=== PATIENT | female | born 1980 | race Two or more races ===

== ENCOUNTER 2024-10-14 08:52 | Emergency (ER) | payer MEDICAID, SELFPAY ==
[2024-10-14 08:54] VITALS: BP 102/84; PULSE 92; RESP 19; TEMP 36.9; O2SAT 98; BMI 32.9
--- NOTE | 2024-10-14 09:05 | XR_ITS ---
Examination: PA lateral chest 2 views TECHNIQUE: Upright PA lateral chest 2 views Exam date and time: October 14, 2024 0912 hours INDICATIONS: Coughing flulike symptoms today FINDINGS: Normal heart size Lungs are clear. The osseous structures are intact IMPRESSION: No active disease
--- NOTE | 2024-10-14 09:49 | PC.NURSE ---
COVID/FLU NEG
--- NOTE | 2024-10-14 11:17 | PD.EDURI ---
Upper Respiratory Inf. RME/HPI General Chief Complaint: Flu Like Symptoms Stated Complaint: COUGH Time Seen by Provider: 10/14/24 08:54 Arrival date/time: 10/14/24 08:52 44-year-old female presents emergency department complaints of cough, congestion, runny nose ongoing for the last couple of days patient reports no chest pain shortness breath headache dizziness weakness Limitations: no limitations Related Data Previous Rx's ?Medication ?Instructions ?Recorded omeprazole 20 mg capsule,delayed 20 mg PO QDAY #14 caps 02/21/23 release albuterol sulfate 90 mcg/actuation 2 puff inhalation Q6H PRN 10/14/24 aerosol inhaler (Ventolin HFA) shortness of breath or wheezing #8.5 grams benzonatate 100 mg capsule 100 mg PO TID #14 caps 10/14/24 ibuprofen 600 mg tablet 600 mg PO Q6H #30 tabs 10/14/24 prednisone 10 mg tablet 30 mg (3 x 10 mg) PO BID 3 days 10/14/24 #18 tabs Allergies Allergy/AdvReac Type Severity Reaction Status Date / Time No Known Allergies Allergy Verified 10/14/24 08:55 Review of Systems Review of Systems Systems Reviewed: All systems reviewed, normal except as documented Constitutional Constitutional: Reports system reviewed and no additional complaints, except as documented, Denies fever(s) and Denies headache(s) Eyes Eyes: Reports system reviewed and no additional complaints, except as documented and Denies blurry vision ENT Ears, Nose, Mouth, and Throat: Reports system reviewed and no additional complaints, except as documented, Denies headache(s), Reports nasal congestion and Reports nasal discharge Cardiovascular Cardiovascular: Reports system reviewed and no additional complaints, except as documented, Denies chest pain and Denies dyspnea Respiratory Respiratory: Reports system reviewed and no additional complaints, except as documented, Reports chest congestion, Reports cough and Denies dyspnea Gastrointestinal Gastrointestinal: Reports system reviewed and no additional complaints, except as documented and Denies abdominal pain Integumentary/Breasts Skin/Breast: Reports system reviewed and no additional complaints, except as documented and Denies rash Neurologic Neurologic: Reports system reviewed and no additional complaints, except as documented, Reports as per HPI and Denies headache(s) Past Medical History Past Medical History NEUROLOGIC: Negative Neurological Disorders CARDIAC: Negative Cardiac Disorders ED Exam General Limitations: Present no limitations General appearance: Present alert and in no apparent distress Head Head exam: Present atraumatic Eye Eye exam: Present normal appearance, PERRL and EOMI ENT ENT exam: Present normal exam, normal oropharynx and mucous membranes moist Neck Neck exam: Present normal inspection, full ROM and trachea midline Chest Chest inspection: Present normal inspection and symmetric chest wall rise Respiratory Respiratory exam: Present normal lung sounds bilaterally Cardiovascular Cardiovascular exam: Present regular rate, normal rhythm and normal heart sounds Abdominal Exam Abdominal exam: Present soft and normal bowel sounds Extremities Exam Extremities exam: Present normal inspection and full ROM Back Exam Back exam: Present normal inspection and full ROM Neurological Exam Neurological exam: Present alert, oriented X3 and CN II-XII intact Psychiatric Psychiatric exam: Present normal affect and normal mood Skin Skin exam: Present warm, dry, intact and normal color Course Quality Measures none Orders Category Date Time Status Bedside COVID-19 Antigen Test NOW Care 10/14/24 09:05 Completed Bedside Influenza A&B Antigen Test NOW Care 10/14/24 09:05 Completed XR chest 2V Stat Exams 10/14/24 09:05 Completed Vital Signs Vital signs: Vital Signs Temperature 98.5 F 10/14/24 08:54 Pulse Rate 92 10/14/24 08:54 Respiratory Rate 19 10/14/24 08:54 Blood Pressure 102/84 10/14/24 08:54 Pulse Oximetry (%) 98 10/14/24 08:54 Oxygen Delivery Method Room Air 10/14/24 08:54 O2 saturation 98% room air within normal limits Upper Respiratory Infection MDM Narrative MDM Narrative:: 44-year-old female presents emergency department complaints of cough, congestion, runny nose ongoing for the last couple of days patient reports no chest pain shortness breath headache dizziness weakness On exam patient does not appear ill or toxic in no acute distress Flu and COVID obtained chest x-ray obtained Chest x-ray no acute pneumonic able traits flu and COVID are both negative Symptoms consistent with URI Patient discharged home in no distress to follow-up with primary care doctor in the next 24 to 48 hours and for any worsening symptoms to return to the ER immediately Patient data External records reviewed:: [facility] previous records Clinical information provided by:: patient Social determinants that could affect healthcare access:: none Patient has the following chronic illnesses:: None How is presenting disease/condition affected by chronic disease/condition?: no chronic disease Evaluation data The following diagnostics were reviewed and interpreted by me:: lab results and radiology exam(s) Lab and/or radiology exams considered but not ordered:: Labs radiology obtained Interpretation Summary: Reviewed by me Medications / Prescriptions Medications or Prescriptions considered but not ordered:: Given Medication administrations:: Given Consultations Consultation(s) initiated? (list below): No Diagnosis Upper Respiratory Differential Diagnosis: upper respiratory infection, otitis media, sinusitis, viral infection and bronchitis Most likely diagnosis given after review of the tests above:: URI Admission Indicated Admission indicated?: not indicated Admission Request Was there a request for admission?: No Disposition Plan Disposition Plan: Discharge Discharge Attestation Discharge Attestation: The patient and all family members were given an opportunity to ask questions and understood the discharge instructions. Discharge instructions specifically effects, indications for sooner follow up or return to the emergency department, and the expected course of current diagnosis. Patient condition: Stable Discharge Plan Plan Patient Disposition: HOME (Self Care) Disposition Comment: Stable Prescriptions/Referrals Prescriptions/Med Rec: New prednisone 10 mg tablet 30 mg PO BID 3 Days Qty: 18 0RF benzonatate 100 mg capsule 100 mg PO TID Qty: 14 0RF ibuprofen 600 mg tablet 600 mg PO Q6H Qty: 30 0RF albuterol sulfate [Ventolin HFA] 90 mcg/actuation HFA aerosol inhaler 2 puff inhalation Q6H PRN (Reason: shortness of breath or wheezing) Qty: 8.5 0RF No Action omeprazole 20 mg capsule,delayed release(DR/EC) 20 mg PO QDAY Qty: 14 0RF Referrals: Kan Jean-Baptiste MD [Primary Care Provider] - 10/15/24 Problem List Clinical Impression: Upper respiratory infection Patient/Caregiver Discharge Instructions Education Materials: ED URI, Viral, No Abx (Adult) Additional Instructions: Please follow up with your primary care doctor in the next 24-48hrs for any worsening symptoms return here immediately Print Language: [place] Stand Alone Forms: Amparo Award Info., Work/School Release, Patient Portal Info Letter Attestation Attestation The patient was seen by the midlevel practitioner. I, the co-signing physician, was present during the entire ER visit. While I did not physically examine the patient, I was available for consultation as needed.
== END 2024-10-14 12:28 | disposition home or self-care (01) ==
PROVIDERS: Emergency Provider Emergency Medicine; PCP Family Medicine
DX: J06.9 Acute upper respiratory infection, unspecified (principal)
CPT/HCPCS: 71046; 99283

== ENCOUNTER 2024-12-16 20:09 | Emergency (ER) | payer MEDICAID, SELFPAY ==
[2024-12-16 20:10] VITALS: BMI 30.5
--- NOTE | 2024-12-16 20:13 | EKG_ITS ---
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
[2024-12-16 20:59] VITALS: BP 108/68; PULSE 84; RESP 18; TEMP 37; O2SAT 100
--- NOTE | 2024-12-16 21:09 | XR_ITS ---
Examination: PA lateral chest 2 views FINDINGS: Upright PA and lateral chest 2 views Exam date and time: December 16, 20242120 hours Comparison October 14, 2024 INDICATIONS: Chest pain beginning one hour ago. FINDINGS: Normal heart size. Lungs are clear. The osseous structures are intact IMPRESSION: No active disease
--- NOTE | 2024-12-16 21:09 | PD.EDRME ---
Rapid Medical Screening Exam RME Arrival date/time: 12/16/24 20:09 44-year-old female no significant past medical history but reports maternal and paternal CAD presents emergency department complaining of left-sided chest pain that radiates towards her left arm she rates it 7 out of 10 and describes it as pressure that is accompanied with shortness of breath. Chief Complaint: Chest Pain Time Seen by Provider: 12/16/24 20:28 Vital signs: Vital Signs Temperature 98.6 F 12/16/24 20:59 Pulse Rate 84 12/16/24 20:59 Respiratory Rate 18 12/16/24 20:59 Blood Pressure 108/68 12/16/24 20:59 Pulse Oximetry (%) 100 12/16/24 20:59 Oxygen Delivery Method Room Air 12/16/24 20:59 Vital signs reviewed by provider: Yes
[2024-12-16 21:56] LABS: Basophils % (Auto) 0 % (0-2.5); Eosinophils # (Auto) 0.1 Thou/mm3 (0.0-0.5); Eosinophils % (Auto) 1 % (0-10); Hematocrit 22.2 % (36.0-46.0); Immature Granulocytes % (Auto) 0 % (0-0); Immature Granulocytes Auto 0.03 Thou/mm3 (0.00-0.00); Lymphocytes # (Auto) 2.7 Thou/mm3 (1.0-4.8); Lymphocytes % (Auto) 34 % (10-50); Mean Corpuscular Hemoglobin 16.4 pg (25.0-35.0); Mean Corpuscular Volume 61 fL (80-100); Monocytes # (Auto) 0.8 Thou/mm3 (0.0-0.8); Monocytes % (Auto) 10 % (0-12); Neutrophils # (Auto) 4.5 Thou/mm3 (1.8-7.7); Neutrophils % (Auto) 55 % (37-80); Nucleated Red Blood Cell % 0 /100 WBC (0); Platelet Count 369 Thou/mm3 (140-440); RDW Standard Deviation 44.3 fL (36.4-46.3); Red Blood Count 3.66 Miln/mm3 (4.00-5.20); White Blood Count 8.1 Thou/mm3 (3.6-11.0)
[2024-12-16 22:03] LABS: Collection Type, Urine Clean Catch
[2024-12-16 22:05] LABS: INR 0.9 (0.9-1.3); Partial Thromboplastin Time 22.3 Seconds (22.0-36.0); Prothrombin Time 10.3 Seconds (9.0-12.2)
[2024-12-16 22:06] LABS: B-Type Natriuretic Peptide < 20 pg/mL (0-100)
[2024-12-16 22:07] LABS: Alanine Aminotransferase 8 U/L (10-49); Albumin, Serum 4.4 gm/dL (3.5-5.0); Albumin/Globulin Ratio 1.4 (1.2-2.2); Alkaline Phosphatase 86 U/L (46-116); Anion Gap 7 (7-16); Aspartate Amino Transferase 14 U/L (0-34); BUN/Creatinine Ratio 11 Ratio (12-20); Bilirubin,Total 0.4 mg/dL (0.3-1.2); Blood Urea Nitrogen 10 mg/dL (9-23); Calcium 9.3 mg/dL (8.3-10.6); Calcium (Corrected) 9.3 mg/dL (8.5-10.1); Carbon Dioxide 24.7 mMol/L (20.0-31.0); Chloride 105 mMol/L (98-107); Creatinine (Component) 0.9 mg/dL (0.6-1.3); Estimated Creatinine Clearance 74.4 mL/min (>60); Globulin 3.2 gm/dL (2.3-3.5); Glucose 88 mg/dL (74-106); Magnesium 1.9 mg/dL (1.6-2.6); Osmolality,Calculated 271 (275-295); Potassium 3.6 mMol/L (3.4-5.1); Sodium 137 mMol/L (136-145); Total Protein 7.6 gm/dL (5.7-8.2); Troponin I < 0.002 ng/mL (0.0-0.045); eGFR > 60 See Note
[2024-12-16 22:22] LABS: Bilirubin,Urine Negative (Negative); Blood,Urine Negative (Negative); Clarity,Urine Clear (Clear/Hazy); Color,Urine Yellow (Lt Yel-Yel); Glucose, Urine Negative (Negative); Ketones,Urine Negative (Negative); Leukocyte Esterase,Urine Negative (Negative); Nitrite,Urine Negative (Negative); PH,Urine 7.5 (5.0-7.0); Protein,Urine Negative (Neg - Trace); RBC,Urine 1 /hpf (0-3); Specific Gravity,Urine 1.018 (1.001-1.035); Squamous Epithelial Cell,Urine 5 /hpf (0-5); Urobilinogen,Urine Negative mg/dL (0.0-1.0); WBC,Urine < 1 /hpf (0-5)
--- NOTE | 2024-12-16 22:31 | EDNOTE_ITS ---
ED Chest Pain RME/HPI General Chief Complaint: Chest Pain Stated Complaint: CHEST PAIN Time Seen by Provider: 12/16/24 20:28 Arrival date/time: 12/16/24 20:09 RME / HPI RME / HPI narrative: 12/16/24 20:09 44-year-old female no significant past medical history but reports maternal and paternal CAD presents emergency department complaining of left-sided chest pain that radiates towards her left arm she rates it 7 out of 10 and describes it as pressure that is accompanied with shortness of breath. ------ Dr. Rodriguez?s Main ED Evaluation: 44yo female with a history of anemia presents to the ED for a chief complaint of chest pain x 3 hours. Patient states she started having chest pain 3 hours ago, reporting she also had numbness and tingling to her fingers, so she came in for evaluation. She denies any shortness of breath, fever, chills, cough, sweating or any other associated symptoms. Patient notes she has a history of heavy menses and has been on iron pills for 7 years. Related Data Previous Rx's ?Medication ?Instructions ?Recorded omeprazole 20 mg capsule,delayed 20 mg PO QDAY #14 cap s 02/21/23 release albuterol sulfate 90 mcg/actuation 2 puff inhalation Q 6H PRN 10/14/24 aerosol inhaler (Ventolin HFA) shortness of breath or wheezing #8.5 grams benzonatate 100 mg capsule 100 mg PO TID #14 caps 09/21 04/12 ibuprofen 600 mg tablet 600 mg PO Q6H #30 tabs 10/14 Allergies Allergy/AdvReac Type Severity Reaction Status Date / Time No Known Allergies Allergy Verified 10/14/24 08:55 Review of Systems Review of Systems Systems Reviewed: All systems reviewed, normal except as documented Narrative Review of Systems: Gen: No fever, no chills, no weight loss EYES: No discharge, no visual changes, no pain HEENT: No ear pain, no congestion, no sore throat PULM: No shortness of breath, no cough, no congestion CV: + chest pain, no dyspnea on exertion, no palpitations GI: No nausea, no vomiting, no diarrhea, no pain, no constipation : No frequency, no urgency, no dysuria Musc/skel: No joint pain, no back pain Skin: No rash. Warm and dry. Psyc: No hallucinations, no depression Heme/Lymph: No easy bleeding or bruising tendencies Neuro: No weakness, no headache, + numbness, + tingling Past Medical History Past Medical History NEUROLOGIC: Negative Neurological Disorders CARDIAC: Negative Cardiac Disorders Social History SMOKING STATUS: Never smoker ED Exam Narrative Physical exam: GENERAL APPEARANCE: alert and oriented x 4, well-developed, well-nourished, no acute distress VITALS: All vitals were reviewed and the pulse ox is 100% on room air, which is normal according to my interpretation. HEENT: Normocephalic, atraumatic; pupils equal, round, reactive to light; EOMI; mucous membranes pink, moist; oropharynx clear NECK: Supple LUNGS: CTABL; no wheezes, no rales, no rhonchi HEART: Regular rate, regular rhythm; normal S1, S2; no murmurs ABDOMEN: non distended; normal BS; soft, no tenderness, no guarding, no rebound; no masses, no organomegaly, no hernia BACK: no CVA tenderness EXTREMITIES: atraumatic; no edema NEUROLOGIC: awake; alert and oriented x4; cranial nerves II-XII grossly intact; no focal sensory or motor deficits PSYCHIATRIC: appropriate mood and affect SKIN: warm, dry, pale, no rashes Course Course Course Narrative: CXR is ordered for determining the etiology of chest pain. Risks versus benefits discussed regarding blood transfusion. Patient consents to getting a blood transfusion. Quality Measures none Orders Category Date Time Status EKG (ED ONLY) *Do not use* NOW Care 12/16/24 20:13 Completed EKG (ED Only) Stat Exams 12/16/24 20:13 Draft XR chest 2V Stat Exams 12/16/24 21:09 Completed B-Type Natriuretic Peptide Stat Lab 12/16/24 21:35 Completed CBC Stat Lab 12/16/24 21:35 Completed Comprehensive Metabolic Panel Stat Lab 12/16/24 21:35 Completed Drug Screen,Urine Stat Lab 12/16/24 21:43 Completed HCG Qualitative,Urine Stat Lab 12/16/24 21:43 Completed Magnesium Stat Lab 12/16/24 21:35 Completed Partial Thromboplastin Time Stat Lab 12/16/24 21:35 Completed Prothrombin Time with INR Stat Lab 12/16/24 21:35 Completed Troponin I Stat Lab 12/16/24 21:35 Completed Type and Screen Stat Lab 12/16/24 22:33 Completed Urinalysis Stat Lab 12/16/24 21:43 Completed prbc [Red Blood Cells] Stat Lab 12/16/24 22:33 Completed Vital Signs Vital signs: Vital Signs Temperature 98.6 F 12/16/24 20:59 Pulse Rate 84 12/16/24 20:59 Respiratory Rate 18 12/16/24 20:59 Blood Pressure 108/68 12/16/24 20:59 Pulse Oximetry (%) 100 12/16/24 20:59 Oxygen Delivery Method Room Air 12/16/24 20:59 Chest Pain MDM Narrative MDM Narrative:: Scribe Attestation: 12/16/24 - Rebecca Rangel am scribing for and in the presence of Dr. Rodriguez. Patient data External records reviewed:: [facility] previous records (Per chart review, patient was seen here on 10/14/24 for URI.) Clinical information provided by:: patient Social determinants that could affect healthcare access:: none Patient has the following chronic illnesses:: anemia How is presenting disease/condition affected by chronic disease/condition?: caused by Evaluation data The following diagnostics were reviewed and interpreted by me:: lab results, radiology exam(s) and EKG tracing(s) Lab and/or radiology exams considered but not ordered:: none Interpretation Summary: WBC count is normal, HnH is low at 6.0/22.2, PTT is normal, PT and INR are normal, CMP is normal, troponin is normal, BNP is normal, UA is unremarkable, UDS is negative, HCG is negative, according to my interpretation. EKG done at 2113, NSR, rate of 73, left axis deviation, no ectopy, Q waves in lead III, avF, V4-V6, no STEMI, unchanged from previous EKG done on 02/21/23, according to my interpretation. ------ [facility] Report Signed Patient: ANA MG. Record#: [id number] Birthdate: 1980 Age/Sex: 44 / F Location: [facility] Attending Dr: Ordering Physician: Rosalina Padron (TIERA)Joseph Date of Service: 12/16/24 Procedure(s): XR chest 2V Accession Number(s): [id number] cc: Jerel Cabrera MD; Rosalina Padron (ONCOLOGY TECHNICIAN)Joseph~ Examination: PA lateral chest 2 views FINDINGS: Upright PA and lateral chest 2 views Exam date and time: December 16, 2024 2121 hours Comparison October 14, 2024 INDICATIONS: Chest pain beginning one hour ago. FINDINGS: Normal heart size. Lungs are clear. The osseous structures are intact IMPRESSION: No active disease Dictated By: Jerel Cabrera MD Signed By: <Electronically signed by Jerel Cabrera MD in OV> 12/16/242139 Medications / Prescriptions Medications or Prescriptions considered but not ordered:: none Medication administrations:: 2 units PRBCs Consultations Consultation(s) initiated? (list below): No Diagnosis Chest Pain Differential Diagnosis: other (anemia, hypomagnesemia, hypokalemia, hypoglycemia) Most likely diagnosis given after review of the tests above:: anemia Admission Indicated Admission indicated?: not indicated Admission Request Was there a request for admission?: No Disposition Plan Disposition Plan: Discharge Discharge Attestation Discharge Attestation: The patient and all family members were given an opportunity to ask questions and understood the discharge instructions. Discharge instructions specifically effects, indications for sooner follow up or return to the emergency department, and the expected course of current diagnosis. Patient condition: Stable Discharge Plan Plan Patient Disposition: HOME (Self Care) Disposition Comment: Stable for discharge Patient condition on transfer: Stable Prescriptions/Referrals Prescriptions/Med Rec: No Action omeprazole 20 mg capsule,delayed release(DR/EC) 20 mg PO QDAY Qty: 14 0RF benzonatate 100 mg capsule 100 mg PO TID Qty: 14 0RF ibuprofen 600 mg tablet 600 mg PO Q6H Qty: 30 0RF albuterol sulfate [Ventolin HFA] 90 mcg/actuation HFA aerosol inhaler 2 puff inhalation Q6H PRN (Reason: shortness of breath or wheezing) Qty: 8.5 0RF Referrals: Kan Jean-Baptiste MD [Primary Care Provider] - In 1 week Problem List Clinical Impression: Anemia Patient/Caregiver Discharge Instructions Discharge Activity: activity as tolerated Education Materials: Anemia, Iron Supplements, ED Anemia Type Not Specified Print Language: [place]udian Stand Alone Forms: Amparo Award Info., Patient Portal Info Letter
[2024-12-16 22:40] LABS: HCG Qualitative,Urine Negative
[2024-12-16 22:43] LABS: Amphetamine/Methamp Scrn,U Negative (Negative); Barbiturate Screen,Urine Negative (Negative); Benzodiazepines Screen,Urine Negative (Negative); Benzoylecgonine Screen, Ur Negative (Negative); Fentanyl Screen,Urine Negative (Negative); Opiate Screen,Urine Negative (Negative); THC Screen,Urine Negative (Negative)
[2024-12-16 23:00] VITALS: BP 127/74; PULSE 76; RESP 17; TEMP 37.1; O2SAT 100
[2024-12-17 00:40] VITALS: BP 113/63; PULSE 75; RESP 16; TEMP 37; O2SAT 100
[2024-12-17 00:58] VITALS: BP 99/65; PULSE 70; RESP 19; TEMP 37; O2SAT 100
== END 2024-12-17 06:15 | disposition home or self-care (01) ==
PROVIDERS: Emergency Provider Emergency Medicine; PCP Family Medicine
DX: D64.9 Anemia, unspecified (principal); R07.89 Other chest pain; I49.8 Other specified cardiac arrhythmias
CPT/HCPCS: 36415; 36430; 71046; 80053; 80307; 81001; 81025; 83735; 83880; 84484; 85025; 85610; 85730; 86850; 86900; 86901; 86923; 93005; 99285; P9016

== ENCOUNTER 2025-01-04 19:43 | Emergency (ER) | payer MEDICAID, SELFPAY ==
[2025-01-04 19:43] VITALS: BMI 29.2
--- NOTE | 2025-01-04 19:55 | EKG_ITS ---
[facility] Test Date: 2025-01-04 Pat Name: AAN MG Department: Room: - Gender: Female Head Of Measurement & Insights: : 1980 Requested By: Amanuel Jackson Order Number: [id number] Reading MD: Amanuel Jackson Measurements Intervals [place] Rate: 80 P: 36 ME: 157 QRS: -9 QRSD: 99 T: 12 QT: 382 QTc: 442 Interpretive Statements SINUS RHYTHM POSSIBLE ANTERIOR MYOCARDIAL INFARCTION , PROBABLY OLD [30 ms Q WAVE IN V3/V4, OR R < 0.2 mV IN V4] Compared to ECG 12/16/2024 21:13:49 Sinus arrhythmia no longer present Myocardial infarct finding still present /store/S0/[id number]/[id number]
[2025-01-04 19:59] VITALS: BP 97/55; PULSE 79; RESP 18; TEMP 36.9; O2SAT 99
--- NOTE | 2025-01-04 20:18 | EDNOTE_ITS ---
ED Chest Pain RME/HPI General Chief Complaint: Chest Pain Stated Complaint: CHEST PAIN Time Seen by Provider: 01/04/25 19:49 Arrival date/time: 01/04/25 19:43 RME / HPI RME / HPI narrative: This section includes all my notes and documentations, including HPI, PE, and ED course.? Amanuel Sevilla MD HPI: 44 year old female here with days of episodes of different uncomfortable symptoms. Symptoms can include intense fear, pounding and racing heart, sweating, chills, shaking, trouble breathing, chest pain, stomach pain, nausea, numbness and tingling in the hands and feet and face, confusion, hot flashes, and feeling faint. No other complaints. ROS: All negative except as documented in HPI. Physical Exam: General:? Alert and oriented.? Appears anxious. Eyes:? Conjunctivae and lids clear.? ENT:? No nasal congestion.? Neck:? Supple.? Heart:? RRR.? Lungs:? No respiratory distress.? Good air movement.? No rhonchi, wheezing, rales.?? Abdomen:? Soft and nontender.?? Legs:? No clubbing, cyanosis, edema.? Skin:? Warm and dry.?? Neuro:? Alert and oriented X 3.?? As a trial, Xanax 0.5 mg given. I reviewed all diagnostic test results. My interpretation of the EKG is?sinus rhythm with no acute ST-T changes. Blood tests unremarkable, including negative Troponin. Prepared the following discharge instructions but was told the patient eloped. Discharge instructions from Dr. Sevilla: 1. After extensive evaluation, there is no life-threatening condition.? Such as extremely low blood count or heart attack or pulmonary embolism (blood clots in your lungs) or pneumothorax (collapsed lung). 2. Your symptoms may be due to underlying stress or anxiety or nerves.? This is fairly common. 3. Take Xanax as needed.? Whether this helps or not will be valuable information to your private doctors. 4. See a private doctor on 01/06/2025 for recheck and further care. To make sure there is no serious underlying heart condition, ask to help you get more tests for your heart that cannot be done here in the ER.? Such as Holter Monitor (cardiac monitoring at home from a day to even a month), heart stress test (on treadmill or with medication), echocardiogram (imaging of your heart structures), heart catherization (checking for blockages in your heart arteries), and a referral to see a Dining Chair Seat Cushion Trimmer. 5. Seek immediate medical care with worsening or with any concerns.?? Amanuel Sevilla MD Related Data Previous Rx's ?Medication ?Instructions ?Recorded omeprazole 20 mg capsule,delayed 20 mg PO QDAY #14 cap s 02/21/23 release albuterol sulfate 90 mcg/actuation 2 puff inhalation Q 6H PRN 10/14/24 aerosol inhaler (Ventolin HFA) shortness of breath or wheezing #8.5 grams benzonatate 100 mg capsule 100 mg PO TID #14 caps 09/21 04/12 ibuprofen 600 mg tablet 600 mg PO Q6H #30 tabs 10/14 alprazolam 0.5 mg tablet (Xanax) 0.5 mg PO BID PRN anx iety #10 tabs 01/04/25 Allergies Allergy/AdvReac Type Severity Reaction Status Date / Time No Known Allergies Allergy Verified 01/04/25 19:46 Course Quality Measures none Orders Category Date Time Status EKG (ED ONLY) *Do not use* NOW Care 01/04/25 19:55 Completed EKG (ED Only) Stat Exams 01/04/25 19:55 Draft CBC Stat Lab 01/04/25 20:20 Completed CMP [Comprehensive Metabolic Panel] Stat Lab 01/04/25 20:20 Completed Magnesium Stat Lab 01/04/25 20:20 Completed PT [Prothrombin Time with INR] Stat Lab 01/04/25 20:20 Completed PTT [Partial Thromboplastin Time] Stat Lab 01/04/25 20:20 Completed Path Review Blood Smear Stat Lab 01/04/25 20:20 Completed TSH [Thyroid Stimulating Hormone] Stat Lab 01/04/25 20:20 Completed Troponin I Stat Lab 01/04/25 20:20 Completed Type and Screen Stat Lab 01/04/25 20:20 Completed ALPRazoLAM [Xanax] Med 01/04/25 21:09 Discontinued 0.5 mg PO X1 ONE Vital Signs Vital signs: Vital Signs Temperature 98.5 F 01/04/25 19:59 Pulse Rate 79 01/04/25 19:59 Respiratory Rate 18 01/04/25 19:59 Blood Pressure 97/55 L 01/04/25 19:59 Pulse Oximetry (%) 99 01/04/25 19:59 Oxygen Delivery Method Room Air 01/04/25 19:59 Chest Pain Patient data External records reviewed:: [facility] previous records Clinical information provided by:: patient Social determinants that could affect healthcare access:: none Patient has the following chronic illnesses:: Asthma How is presenting disease/condition affected by chronic disease/condition?: uneffected by Evaluation data The following diagnostics were reviewed and interpreted by me:: lab results, radiology exam(s) and EKG tracing(s) (My interpretation of the EKG is: Sinus rhythm (80 bpm) with nonspecific ST-T changes. Amanuel Sevilla MD) Lab and/or radiology exams considered but not ordered:: None Interpretation Summary: Anxiety Medications / Prescriptions Medications or Prescriptions considered but not ordered:: None Medication administrations:: Medication Administration History Discontinued Medications Alprazolam (Alprazolam 0.25 Mg Tablet) 0.5 mg PO X1 ONE Stop: 01/04/25 21:10 Xanax Consultations Consultation(s) initiated? (list below): No Diagnosis Chest Pain Differential Diagnosis: stable angina, unstable angina pectoris, atypical chest pain, st elevation myocardial infarction, costochondritis and other (Anxiety ) Most likely diagnosis given after review of the tests above:: Anxiety Admission Indicated Admission indicated?: not indicated Admission Request Was there a request for admission?: No Disposition Plan Disposition Plan: Discharge Discharge Attestation Discharge Attestation: The patient and all family members were given an opportunity to ask questions and understood the discharge instructions. Discharge instructions specifically effects, indications for sooner follow up or return to the emergency department, and the expected course of current diagnosis. Patient condition: Stable Discharge Plan Plan Patient Disposition: Elopement Prescriptions/Referrals Prescriptions/Med Rec: New alprazolam [Xanax] 0.5 mg tablet 0.5 mg PO BID PRN (Reason: anxiety) Qty: 10 0RF No Action omeprazole 20 mg capsule,delayed release(DR/EC) 20 mg PO QDAY Qty: 14 0RF benzonatate 100 mg capsule 100 mg PO TID Qty: 14 0RF ibuprofen 600 mg tablet 600 mg PO Q6H Qty: 30 0RF albuterol sulfate [Ventolin HFA] 90 mcg/actuation HFA aerosol inhaler 2 puff inhalation Q6H PRN (Reason: shortness of breath or wheezing) Qty: 8.5 0RF Referrals: Norah Gonzalez, [employer]PECTOR [Primary Care Provider] - In 1 week Problem List Clinical Impression: Chest pain Patient/Caregiver Discharge Instructions Discharge Activity: activity as tolerated Education Materials: ED Chest Pain, Uncertain Cause Additional Instructions: Discharge instructions from Dr. Sevilla: 1. After extensive evaluation, there is no life-threatening condition.? Such as extremely low blood count or heart attack or pulmonary embolism (blood clots in your lungs) or pneumothorax (collapsed lung). 2. Your symptoms may be due to underlying stress or anxiety or nerves.? This is fairly common. 3. Take Xanax as needed.? Whether this helps or not will be valuable information to your private doctors. 4. See a private doctor on 01/06/2025 for recheck and further care. To make sure there is no serious underlying heart condition, ask to help you get more tests for your heart that cannot be done here in the ER.? Such as Holter Monitor (cardiac monitoring at home from a day to even a month), heart stress test (on treadmill or with medication), echocardiogram (imaging of your heart structures), heart catherization (checking for blockages in your heart arteries), and a referral to see a Dining Chair Seat Cushion Trimmer. 5. Seek immediate medical care with worsening or with any concerns.?? Print Language: Amharic
[2025-01-04 20:51] LABS: Basophils % (Auto) 1 % (0-2.5); Eosinophils # (Auto) 0.1 Thou/mm3 (0.0-0.5); Eosinophils % (Auto) 1 % (0-10); Hematocrit 27.9 % (36.0-46.0); Immature Granulocytes % (Auto) 0 % (0-0); Immature Granulocytes Auto 0.03 Thou/mm3 (0.00-0.00); Lymphocytes % (Auto) 36 % (10-50); Mean Corpuscular HGB Conc 30.1 g/dl (31.0-37.0); Mean Corpuscular Hemoglobin 20.5 pg (25.0-35.0); Mean Corpuscular Volume 68 fL (80-100); Monocytes # (Auto) 0.7 Thou/mm3 (0.0-0.8); Monocytes % (Auto) 9 % (0-12); Neutrophils # (Auto) 4.3 Thou/mm3 (1.8-7.7); Neutrophils % (Auto) 53 % (37-80); Nucleated Red Blood Cell % 0 /100 WBC (0); Platelet Count 372 Thou/mm3 (140-440); RDW Standard Deviation 66.1 fL (36.4-46.3); Red Blood Count 4.09 Miln/mm3 (4.00-5.20); White Blood Count 8.1 Thou/mm3 (3.6-11.0)
[2025-01-04 21:04] LABS: Alanine Aminotransferase 11 U/L (10-49); Albumin, Serum 4.2 gm/dL (3.5-5.0); Albumin/Globulin Ratio 1.4 (1.2-2.2); Alkaline Phosphatase 88 U/L (46-116); Anion Gap 7 (7-16); Aspartate Amino Transferase 16 U/L (0-34); BUN/Creatinine Ratio 12 Ratio (12-20); Bilirubin,Total 0.3 mg/dL (0.3-1.2); Blood Urea Nitrogen 11 mg/dL (9-23); Calcium 9.4 mg/dL (8.3-10.6); Calcium (Corrected) 9.4 mg/dL (8.5-10.1); Chloride 108 mMol/L (98-107); Creatinine (Component) 0.9 mg/dL (0.6-1.3); Estimated Creatinine Clearance 72.9 mL/min (>60); Globulin 2.9 gm/dL (2.3-3.5); Glucose 97 mg/dL (74-106); Magnesium 1.7 mg/dL (1.6-2.6); Osmolality,Calculated 278 (275-295); Potassium 3.8 mMol/L (3.4-5.1); Sodium 140 mMol/L (136-145); Total Protein 7.1 gm/dL (5.7-8.2); Troponin I < 0.002 ng/mL (0.0-0.045); eGFR > 60 See Note
[2025-01-04 21:05] LABS: Hemoglobin 8.4 g/dL (12.0-16.0)
[2025-01-04 21:20] LABS: INR 0.9 (0.9-1.3); Partial Thromboplastin Time 23.1 Seconds (22.0-36.0); Prothrombin Time 10.3 Seconds (9.0-12.2)
--- NOTE | 2025-01-04 21:46 | PC.NURSE ---
NO ANSWER FOR DISCHARGE [id number], [id number]
--- NOTE | 2025-01-04 22:01 | PC.NURSE ---
PT CALLED FROM [facility] AT [phone], [phone] & [phone] FOR DISCHARGE AND MEDS AND DID NOT ANSWER.
--- NOTE | 2025-01-04 22:05 | PC.NURSE ---
NO ANSWER FOR DISCHARGE PAPERWORK
[2025-01-05 05:36] LABS: Path Review Blood Smear Sent to Pathologist
== END 2025-01-04 22:00 | disposition left against medical advice (07) ==
PROVIDERS: Emergency Provider Emergency Medicine; PCP Nurse Practitioner Family
DX: R07.9 Chest pain, unspecified (principal); F41.9 Anxiety disorder, unspecified; Z53.29 Procedure and treatment not carried out because of patient's decision for other reasons
CPT/HCPCS: 36415; 80053; 83735; 84443; 84484; 85025; 85610; 85730; 86850; 86900; 86901; 93005; 99281

== ENCOUNTER 2025-01-14 19:04 | Emergency (ER) | payer MEDICAID, SELFPAY ==
[2025-01-14 19:05] VITALS: BMI 27.4
[2025-01-14 19:16] VITALS: BP 115/77; PULSE 85; RESP 19; TEMP 36.8; O2SAT 100
--- NOTE | 2025-01-14 19:20 | PD.EDRME ---
Rapid Medical Screening Exam RME Arrival date/time: 01/14/25 19:04 44-year-old female past medical history of anemia on iron supplements presents emergency department complaining of dizziness and lightheadedness. Chief Complaint: Dizziness Time Seen by Provider: 01/14/25 19:16 Vital signs: Vital Signs Temperature 98.2 F 01/14/25 19:16 Pulse Rate 85 01/14/25 19:16 Respiratory Rate 19 01/14/25 19:16 Blood Pressure 115/77 01/14/25 19:16 Pulse Oximetry (%) 100 01/14/25 19:16 Oxygen Delivery Method Room Air 01/14/25 19:16 Vital signs reviewed by provider: Yes
[2025-01-14 19:58] LABS: Collection Type, Urine Clean Catch
[2025-01-14 20:00] LABS: Basophils # (Auto) 0.1 Thou/mm3 (0.0-0.2); Basophils % (Auto) 1 % (0-2.5); Eosinophils # (Auto) 0.1 Thou/mm3 (0.0-0.5); Eosinophils % (Auto) 1 % (0-10); Hematocrit 27.1 % (36.0-46.0); Immature Granulocytes % (Auto) 0 % (0-0); Immature Granulocytes Auto 0.02 Thou/mm3 (0.00-0.00); Lymphocytes # (Auto) 2.7 Thou/mm3 (1.0-4.8); Lymphocytes % (Auto) 32 % (10-50); Mean Corpuscular HGB Conc 29.9 g/dl (31.0-37.0); Mean Corpuscular Hemoglobin 20.8 pg (25.0-35.0); Mean Corpuscular Volume 70 fL (80-100); Monocytes # (Auto) 0.8 Thou/mm3 (0.0-0.8); Monocytes % (Auto) 9 % (0-12); Neutrophils # (Auto) 4.8 Thou/mm3 (1.8-7.7); Neutrophils % (Auto) 57 % (37-80); Nucleated Red Blood Cell % 0 /100 WBC (0); Platelet Count 302 Thou/mm3 (140-440); RDW Standard Deviation 68.2 fL (36.4-46.3); Red Blood Count 3.89 Miln/mm3 (4.00-5.20); White Blood Count 8.4 Thou/mm3 (3.6-11.0)
[2025-01-14 20:05] LABS: Hemoglobin 8.1 g/dL (12.0-16.0)
[2025-01-14 20:05] LABS: Bilirubin,Urine Negative (Negative); Blood,Urine Negative (Negative); Clarity,Urine Clear (Clear/Hazy); Color,Urine Lt-Yellow (Lt Yel-Yel); Culture Indicated,Urine Not Indicated; Glucose, Urine Negative (Negative); Ketones,Urine Negative (Negative); Leukocyte Esterase,Urine Negative (Negative); Nitrite,Urine Negative (Negative); PH,Urine 6.5 (5.0-7.0); Protein,Urine Negative (Neg - Trace); RBC,Urine 2 /hpf (0-3); Specific Gravity,Urine 1.013 (1.001-1.035); Squamous Epithelial Cell,Urine 6 /hpf (0-5); Urobilinogen,Urine Negative mg/dL (0.0-1.0); WBC,Urine 1 /hpf (0-5)
[2025-01-14 20:13] LABS: HCG,Qualitative Serum Negative
[2025-01-14 20:21] LABS: Albumin, Serum 3.7 gm/dL (3.5-5.0); Albumin/Globulin Ratio 1.2 (1.2-2.2); Anion Gap 8 (7-16); Aspartate Amino Transferase 16 U/L (0-34); BUN/Creatinine Ratio 10 Ratio (12-20); Bilirubin,Total 0.3 mg/dL (0.3-1.2); Blood Urea Nitrogen 9 mg/dL (9-23); Calcium 8.4 mg/dL (8.3-10.6); Calcium (Corrected) 8.6 mg/dL (8.5-10.1); Carbon Dioxide 22.6 mMol/L (20.0-31.0); Chloride 109 mMol/L (98-107); Creatinine (Component) 0.9 mg/dL (0.6-1.3); Estimated Creatinine Clearance 70.6 mL/min (>60); Globulin 3.1 gm/dL (2.3-3.5); Glucose 106 mg/dL (74-106); Osmolality,Calculated 278 (275-295); Potassium 3.9 mMol/L (3.4-5.1); Sodium 140 mMol/L (136-145); Total Protein 6.8 gm/dL (5.7-8.2); eGFR > 60 See Note
[2025-01-14] MEDS: MECLIZINE HCL 25 MG TABLET 50 MG PO (20:30)
[2025-01-14 20:38] LABS: Alanine Aminotransferase 9 U/L (10-49); Alkaline Phosphatase 79 U/L (46-116)
--- NOTE | 2025-01-14 21:46 | PD.EDDIZZY ---
ED Dizzyness RME/HPI General Chief Complaint: Dizziness Stated Complaint: dizziness, anemia Time Seen by Provider: 01/14/25 19:16 Source: patient Arrival date/time: 01/14/25 19:04 44-year-old female past medical history of anemia on iron supplements presents emergency department complaining of dizziness and lightheadedness. Patient denies any fever, chills, vision changes, numbness, rectal bleeding, tarry stools, vaginal bleeding, hematemesis, or any other associated symptom. Mode of arrival: ambulatory Limitations: no limitations RME / HPI RME / HPI Narrative: 01/14/25 19:04 44-year-old female past medical history of anemia on iron supplements presents emergency department complaining of dizziness and lightheadedness. Related Data Previous Rx's ?Medication ?Instructions ?Recorded omeprazole 20 mg capsule,delayed 20 mg PO QDAY #14 caps 02/21/23 release albuterol sulfate 90 mcg/actuation 2 puff inhalation Q6H PRN 10/14/24 aerosol inhaler (Ventolin HFA) shortness of breath or wheezing #8.5 grams benzonatate 100 mg capsule 100 mg PO TID #14 caps 10/14/24 ibuprofen 600 mg tablet 600 mg PO Q6H #30 tabs 10/14/24 alprazolam 0.5 mg tablet (Xanax) 0.5 mg PO BID PRN anxiety #10 tabs 01/04/25 meclizine 25 mg tablet 25 mg PO BID PRN dizziness #10 tabs 01/14/25 Allergies Allergy/AdvReac Type Severity Reaction Status Date / Time No Known Allergies Allergy Verified 01/04/25 19:46 Review of Systems Review of Systems Systems Reviewed: All systems reviewed, normal except as documented Constitutional Constitutional: Reports system reviewed and no additional complaints, except as documented, Denies body ache(s), Denies chills and Denies fever(s) Eyes Eyes: Reports system reviewed and no additional complaints, except as documented and Denies change in vision ENT Ears, Nose, Mouth, and Throat: Reports system reviewed and no additional complaints, except as documented, Denies disequilibrium, Reports dizziness, Denies sore throat and Reports vertigo Cardiovascular Cardiovascular: Reports system reviewed and no additional complaints, except as documented, Denies chest pain and Denies dyspnea Respiratory Respiratory: Reports system reviewed and no additional complaints, except as documented, Denies chest congestion, Denies cough and Denies dyspnea Gastrointestinal Gastrointestinal: Reports system reviewed and no additional complaints, except as documented, Denies abdominal pain, Denies nausea and Denies vomiting Musculoskeletal Musculoskeletal: Reports system reviewed and no additional complaints, except as documented, Denies abnormal gait and Denies arthralgias Integumentary/Breasts Skin/Breast: Reports system reviewed and no additional complaints, except as documented, Denies erythema, Denies rash and Denies wounds Neurologic Neurologic: Reports system reviewed and no additional complaints, except as documented, Denies abnormal gait, Denies disequilibrium, Reports dizziness and Reports vertigo Past Medical History Past Medical History NEUROLOGIC: Negative Neurological Disorders CARDIAC: Negative Cardiac Disorders Social History SMOKING STATUS: Never smoker ED Exam General Limitations: Present no limitations General appearance: Present alert and in no apparent distress Head Head exam: Present atraumatic Eye Eye exam: Present normal appearance, PERRL and EOMI ENT ENT exam: Present normal exam, normal oropharynx and mucous membranes moist Neck Neck exam: Present normal inspection, full ROM and trachea midline Chest Chest inspection: Present normal inspection and symmetric chest wall rise Respiratory Respiratory exam: Present normal lung sounds bilaterally Cardiovascular Cardiovascular exam: Present regular rate, normal rhythm and normal heart sounds Abdominal Exam Abdominal exam: Present soft and normal bowel sounds Extremities Exam Extremities exam: Present normal inspection and full ROM Back Exam Back exam: Present normal inspection and full ROM Neurological Exam Neurological exam: Present alert, oriented X3 and CN II-XII intact Psychiatric Psychiatric exam: Present normal affect and normal mood Skin Skin exam: Present warm, dry, intact and normal color Course Quality Measures none Orders Category Date Time Status EKG (ED ONLY) *Do not use* NOW Care 01/14/25 19:59 Completed EKG (ED Only) Stat Exams 01/14/25 19:59 Ordered CBC Stat Lab 01/14/25 19:47 Completed CMP [Comprehensive Metabolic Panel] Stat Lab 01/14/25 19:47 Completed HCG,Qualitative Serum Stat Lab 01/14/25 19:47 Completed Urinalysis, C/S if Indicated Stat Lab 01/14/25 19:30 Completed Meclizine HCl [Antivert] Med 01/14/25 20:25 Discontinued 50 mg PO X1 ONE Vital Signs Vital signs: Vital Signs Temperature 98.2 F 01/14/25 19:16 Pulse Rate 85 01/14/25 19:16 Respiratory Rate 19 02/25/25 19:16 Blood Pressure 115/77 01/14/25 19:16 Pulse Oximetry (%) 100 01/14/25 19:16 Oxygen Delivery Method Room Air 01/14/25 19:16 100% room air within normal limits Procedures -ED EKG Interpretation #1: Date of EK01/14/25 Time of EK:55 Rate: 66 Interpretation: Interpreted by me EKG Impression: Normal sinus rhythm, No acute ST-T changes, No ectopy, No ischemic changes and Normal QRS Dizziness MDM Narrative MDM Narrative:: 44-year-old female past medical history of anemia on iron supplements presents emergency department complaining of dizziness and lightheadedness. Patient denies any fever, chills, vision changes, numbness, rectal bleeding, tarry stools, vaginal bleeding, hematemesis, or any other associated symptom. CBC was unremarkable for any leukocytosis and hemoglobin was 8.1 compared to 8.4 previous visit. CMP was unremarkable. EKG sinus rhythm. Urinalysis was unremarkable. Patient reports symptoms worsen when changing positions. Patient was given meclizine and reported significant improvement in symptoms. Patient GCS of 15 with steady gait. Patient discharged instructed to have close follow-up with primary care provider return to emergency department for any worsening symptoms or as needed. Patient data External records reviewed:: [facility] previous records Clinical information provided by:: patient Social determinants that could affect healthcare access:: none Patient has the following chronic illnesses:: See chart How is presenting disease/condition affected by chronic disease/condition?: uneffected by Evaluation data The following diagnostics were reviewed and interpreted by me:: lab results and EKG tracing(s) Lab and/or radiology exams considered but not ordered:: Ordered Interpretation Summary: Interpreted by me Medications / Prescriptions Medications or Prescriptions considered but not ordered:: Ordered Medication administrations:: Medication Administration History Discontinued Medications Meclizine HCl (Meclizine Hcl 25 Mg Tablet) 50 mg PO X1 ONE Stop: 01/14/25 20:26 Last Admin: 01/14/25 20:30 Dose: 50 mg Documented By: MP Given Consultations Consultation(s) initiated? (list below): No Diagnosis Dizziness Differential Diagnosis: benign paroxysmal positional vertigo, orthostatic hypotension, vertebral basilar insufficiency, cerebrovascular accident, acute vestibular neuronitis and transient cerebral ischemia Most likely diagnosis given after review of the tests above:: bppv Admission Indicated Admission indicated?: not indicated Admission Request Was there a request for admission?: No Disposition Plan Disposition Plan: Discharge Discharge Attestation Discharge Attestation: The patient and all family members were given an opportunity to ask questions and understood the discharge instructions. Discharge instructions specifically effects, indications for sooner follow up or return to the emergency department, and the expected course of current diagnosis. Patient condition: Stable Discharge Plan Plan Patient Disposition: HOME (Self Care) Disposition Comment: Stable Prescriptions/Referrals Prescriptions/Med Rec: New meclizine 25 mg tablet 25 mg PO BID PRN (Reason: dizziness) Qty: 10 0RF No Action omeprazole 20 mg capsule,delayed release(DR/EC) 20 mg PO QDAY Qty: 14 0RF benzonatate 100 mg capsule 100 mg PO TID Qty: 14 0RF ibuprofen 600 mg tablet 600 mg PO Q6H Qty: 30 0RF albuterol sulfate [Ventolin HFA] 90 mcg/actuation HFA aerosol inhaler 2 puff inhalation Q6H PRN (Reason: shortness of breath or wheezing) Qty: 8.5 0RF alprazolam [Xanax] 0.5 mg tablet 0.5 mg PO BID PRN (Reason: anxiety) Qty: 10 0RF Referrals: Bruna Blackwood PA-C [Primary Care Provider] - In 1 week Problem List Clinical Impression: Benign paroxysmal positional vertigo Patient/Caregiver Discharge Instructions Discharge Activity: activity as tolerated Education Materials: Vertigo Medicine Tx, Dizziness Vertigo and Balance ..., Vertigo Staying Safe, BPPV Additional Instructions: Drink plenty of fluids stay hydrated. Take medication as prescribed. Follow-up with primary care provider in 2 to 3 days. Return to emergency department for any worsening symptoms or as needed. Print Language: Upper Sorbian Stand Alone Forms: [facility]paro Award Info., Patient Portal Info Letter KAYLEE/TIERA Supervising Physician KAYLEE/TIERA Supervising Physician: Dr. Manriquez
[2025-01-14 21:58] VITALS: RESP 16
== END 2025-01-14 21:59 | disposition home or self-care (01) ==
PROVIDERS: Emergency Provider Emergency Medicine; PCP Physician Assistant
DX: H81.10 Benign paroxysmal vertigo, unspecified ear (principal)
CPT/HCPCS: 36415; 80053; 81001; 84703; 85025; 93005; 99283; A9270

== ENCOUNTER 2025-02-17 16:01 | Emergency (ER) | payer MEDICAID, SELFPAY ==
[2025-02-17 16:02] VITALS: BMI 27.4
[2025-02-17 16:14] VITALS: BP 111/70; PULSE 74; RESP 18; TEMP 36.9; O2SAT 98
--- NOTE | 2025-02-17 16:32 | EKG_ITS ---
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1980 Requested By: Sanchez Mejias (BLANQUITA) Order Number: [id number] Reading MD: Sanchez Mejias ([employer] CLERK) Measurements Intervals [place] Rate: 65 P: 58 [place]: 148 QRS: -18 QRSD: 96 T: -11 QT: 400 QTc: 417 Interpretive Statements SINUS RHYTHM WITH SINUS ARRHYTHMIA LOW QRS VOLTAGE IN PRECORDIAL LEADS [QRS DEFLECTION < 1.0 mV IN CHEST LEADS] POSSIBLE ANTERIOR MYOCARDIAL INFARCTION , OF INDETERMINATE AGE [30 ms Q WAVE IN V3/V4, OR R < 0.2 mV IN V4] Compared to ECG 01/04/2025 20:02:44 Low QRS voltage now present Myocardial infarct finding still present /store/[id number].pdf
--- NOTE | 2025-02-17 16:33 | PD.EDRME ---
Rapid Medical Screening Exam RME Arrival date/time: 02/17/25 16:01 44-year-old female with history of chronic anemia presents to the emergency department today for complaints of dizziness and generalized fatigue Chief Complaint: Dizziness Time Seen by Provider: 02/17/25 16:20 Vital signs: Vital Signs Temperature 98.5 F 02/17/25 16:14 Pulse Rate 74 02/17/25 16:14 Respiratory Rate 18 02/17/25 16:14 Blood Pressure 111/70 02/17/25 16:14 Pulse Oximetry (%) 98 02/17/25 16:14 Oxygen Delivery Method Room Air 02/17/25 16:14
[2025-02-17 17:03] LABS: Collection Type, Urine Clean Catch
[2025-02-17 17:15] LABS: Basophils % (Auto) 1 % (0-2.5); Eosinophils % (Auto) 1 % (0-10); Hematocrit 28.4 % (36.0-46.0); Immature Granulocytes % (Auto) 0 % (0-0); Immature Granulocytes Auto 0.01 Thou/mm3 (0.00-0.00); Lymphocytes # (Auto) 2.2 Thou/mm3 (1.0-4.8); Lymphocytes % (Auto) 32 % (10-50); Mean Corpuscular HGB Conc 29.6 g/dl (31.0-37.0); Mean Corpuscular Hemoglobin 20.3 pg (25.0-35.0); Mean Corpuscular Volume 69 fL (80-100); Monocytes # (Auto) 0.6 Thou/mm3 (0.0-0.8); Monocytes % (Auto) 9 % (0-12); Neutrophils % (Auto) 58 % (37-80); Nucleated Red Blood Cell % 0 /100 WBC (0); Platelet Count 374 Thou/mm3 (140-440); RDW Standard Deviation 54.8 fL (36.4-46.3); Red Blood Count 4.13 Miln/mm3 (4.00-5.20); White Blood Count 6.8 Thou/mm3 (3.6-11.0)
[2025-02-17 17:18] LABS: Hemoglobin 8.4 g/dL (12.0-16.0)
[2025-02-17 17:31] LABS: HCG Qualitative,Urine Negative
[2025-02-17 17:37] LABS: Partial Thromboplastin Time 24.2 Seconds (22.0-36.0); Prothrombin Time 10.9 Seconds (9.0-12.2)
[2025-02-17 17:43] LABS: Alanine Aminotransferase 9 U/L (10-49); Albumin/Globulin Ratio 1.3 (1.2-2.2); Alkaline Phosphatase 95 U/L (46-116); Anion Gap 8 (7-16); Aspartate Amino Transferase 16 U/L (0-34); BUN/Creatinine Ratio 8 Ratio (12-20); Bilirubin,Total 0.5 mg/dL (0.3-1.2); Blood Urea Nitrogen 7 mg/dL (9-23); Calcium 8.7 mg/dL (8.3-10.6); Calcium (Corrected) 8.7 mg/dL (8.5-10.1); Carbon Dioxide 21.2 mMol/L (20.0-31.0); Chloride 111 mMol/L (98-107); Creatinine (Component) 0.9 mg/dL (0.6-1.3); Estimated Creatinine Clearance 70.6 mL/min (>60); Globulin 3.2 gm/dL (2.3-3.5); Glucose 76 mg/dL (74-106); Osmolality,Calculated 276 (275-295); Potassium 3.8 mMol/L (3.4-5.1); Sodium 140 mMol/L (136-145); Total Protein 7.2 gm/dL (5.7-8.2); Troponin I < 0.002 ng/mL (0.0-0.045); eGFR > 60 See Note
[2025-02-17 17:46] LABS: Bilirubin,Urine Negative (Negative); Blood,Urine 3+ (Negative); Clarity,Urine Turbid (Clear/Hazy); Color,Urine Yellow (Lt Yel-Yel); Glucose, Urine Negative (Negative); Ketones,Urine Negative (Negative); Leukocyte Esterase,Urine Negative (Negative); Nitrite,Urine Negative (Negative); Protein,Urine Trace (Neg - Trace); RBC,Urine 2444 /hpf (0-3); Specific Gravity,Urine 1.017 (1.001-1.035); Squamous Epithelial Cell,Urine 1 /hpf (0-5); Urobilinogen,Urine Negative mg/dL (0.0-1.0); WBC,Urine 8 /hpf (0-5)
[2025-02-17 21:07] VITALS: BP 119/75; PULSE 66; RESP 16; TEMP 36.8; O2SAT 99
--- NOTE | 2025-02-17 21:09 | PD.EDADULT ---
ED General RME/HPI General Chief complaint: Dizziness Stated complaint: DIZZY AND LIGHTHEADED SINCE YEST, HX CHRONIC ANEMI Time Seen by Provider: 02/17/25 16:20 Arrival date/time: 02/17/25 16:01 CC: Lightheaded and generalized weakness HPI patient has a long history of anemia and is being watched by the blood doctor Lucy. Has a follow-up appointment on the seventh of this month, patient was advised that if she begins to feel lightheaded or dizzy to return the emergency room for reevaluation. Patient states that she did pass out x 1, denies headache shortness of breath difficulty breathing blurred vision seeing spots nausea or vomiting. No chest pain. RME / HPI RME / HPI narrative: 02/17/25 16:01 44-year-old female with history of chronic anemia presents to the emergency department today for complaints of dizziness and generalized fatigue Related Data Previous Rx's ?Medication ?Instructions ?Recorded omeprazole 20 mg capsule,delayed 20 mg PO QDAY #14 caps 02/21/23 release albuterol sulfate 90 mcg/actuation 2 puff inhalation Q6H PRN 10/14/24 aerosol inhaler (Ventolin HFA) shortness of breath or wheezing #8.5 grams benzonatate 100 mg capsule 100 mg PO TID #14 caps 10/14/24 ibuprofen 600 mg tablet 600 mg PO Q6H #30 tabs 10/14/24 alprazolam 0.5 mg tablet (Xanax) 0.5 mg PO BID PRN anxiety #10 tabs 01/04/25 meclizine 25 mg tablet 25 mg PO BID PRN dizziness #10 tabs 01/14/25 Allergies Allergy/AdvReac Type Severity Reaction Status Date / Time No Known Allergies Allergy Verified 02/17/25 16:04 Review of Systems Review of Systems Narrative Review of Systems: GEN: No fever, no chills, no weight loss EYES: No discharge, no visual changes, no pain HEENT: No ear pain, no congestion, no sore throat PULM: No shortness of breath, no cough, no congestion CV: No chest pain, no dyspnea on exertion, no palpitations GI: No nausea, no vomiting, no diarrhea, no pain, no constipation : No frequency, no urgency, no dysuria MUSC/SKEL: No joint pain, no back pain SKIN: No rash PSYCH: No hallucinations, no depression HEME/LYMPH: No easy bleeding or bruising tendencies NEURO: + weakness, no headache Past Medical History Past Medical History NEUROLOGIC: Negative Neurological Disorders CARDIAC: Negative Cardiac Disorders Social History SMOKING STATUS: Never smoker ED Exam Narrative Physical exam: [General: Not in any acute distress Head normocephalic HEENT: Eyes pupils are PERRLA EOMs are intact mouth pink dry membranes uvula is midline swallow symmetrical phonation is normal nose no, no rhinorrhea, all other subsystems of HEENT are within acceptable limits Neck is supple nontender no JVD no lymphadenopathy. Chest equal chest rise nontender to palpation Respiratory: Clear to auscultation no wheezes crackles or rubs CV: Rate rhythm is regular no murmurs rubs or clicks Abdomen is soft nontender no masses positive bowel sounds all 4 quadrants Back: No CVA tenderness no spinous process tenderness from cervical spine thoracic and lumbar spine Skin: Pale, blanched conjunctiva otherwise skin is intact no petechiae rash induration ulceration or crepitus Extremities: Moving all extremity against resistance cap refill less than 2 seconds neurosensory intact. No lower extremity edema Neuro: Awake alert oriented x3 Glascow coma 15 no focal deficits] Course Quality Measures none Orders Category Date Time Status EKG (ED ONLY) *Do not use* NOW Care 02/17/25 16:32 Completed EKG (ED Only) Stat Exams 02/17/25 16:32 Draft CBC Stat Lab 02/17/25 16:40 Completed Comprehensive Metabolic Panel Stat Lab 02/17/25 16:40 Completed HCG Qualitative,Urine Stat Lab 02/17/25 16:59 Completed Partial Thromboplastin Time Stat Lab 02/17/25 16:40 Completed Prothrombin Time with INR Stat Lab 02/17/25 16:40 Completed Troponin I Stat Lab 02/17/25 16:40 Completed Type and Screen Stat Lab 02/17/25 16:40 Completed Urinalysis Stat Lab 02/17/25 16:59 Completed Vital Signs Vital signs: Vital Signs Temperature 98.5 F 02/17/25 16:14 Pulse Rate 74 02/17/25 16:14 Respiratory Rate 18 02/17/25 16:14 Blood Pressure 111/70 02/17/25 16:14 Pulse Oximetry (%) 98 02/17/25 16:14 Oxygen Delivery Method Room Air 02/17/25 16:14 MDM Patient data External records reviewed:: [facility] previous records Clinical information provided by:: patient Social determinants that could affect healthcare access:: none Patient has the following chronic illnesses:: Anemia How is presenting disease/condition affected by chronic disease/condition?: exacerbated by Evaluation data The following diagnostics were reviewed and interpreted by me:: lab results and radiology exam(s) Lab and/or radiology exams considered but not ordered:: EKG performed at 1637 shows a ventricular rate of 6 5. Of 148 QRS of 9 6 QTc of 411 the sinus rhythm low voltage. When compared to an old EKG of December 2023 there are no significant changes. CBC shows no leukocytosis there is a hemoglobin of 8.4 and hematocrit of 28.4. Platelet count of 374 Coags within acceptable limits No significant electrolyte imbalances BUN is 7 no transaminitis or T. bili elevation. Urine is turbid 3+ blood no bacteria no leukocyte esterase. Interpretation Summary: Patient has no acute finding requires emergent or immediate intervention as low hemoglobin which, when reviewed through the past 3 months has remained stable. Patient be discharged home to follow-up with their regulatory manager and her primary care provider if there is worsening of symptoms she is return the emergency room for reevaluation. Medications Medications considered but not ordered:: None Medication administrations:: None Consultations Consultation(s) initiated? (list below): No Diagnosis Differential Diagnosis ED Complaint MDM: Anemia UTI electrolyte imbalance Most likely diagnosis given after review of the tests above:: Anemia weakness Admission Indicated Admission indicated?: not indicated Explain why admission is indicated or not indicated:: Stable for outpatient follow-up Admission Request Was there a request for admission?: No Disposition Plan Disposition Plan: Discharge Discharge Attestation Discharge Attestation: The patient and all family members were given an opportunity to ask questions and understood the discharge instructions. Discharge instructions specifically effects, indications for sooner follow up or return to the emergency department, and the expected course of current diagnosis. Patient condition: Stable Medical Decision Making Differential Diagnosis Differential Diagnosis: Anemia UTI electrolyte imbalance Lab Data 02/17/25 16:40 02/17/25 16:40 Labs: Lab Results 02/17/25 02/17/25 Range/Units 16:40 16:59 WBC 6.8 (3.6-11.0) Thou/mm3 RBC 4.13 (4.00-5.20) Miln/mm3 Hgb 8.4 L (12.0-16.0) g/dL Hct 28.4 L (36.0-46.0) % MCV 69 L (80-100) fL MCH 20.3 L (25.0-35.0) pg MCHC 29.6 L (31.0-37.0) g/dl RDW Std Deviation 54.8 H (36.4-46.3) fL Plt Count 374 D (140-440) Thou/mm3 Neut % (Auto) 58 (37-80) % Lymph % (Auto) 32 (10-50) % [place] % (Auto) 9 (0-12) % Eos % (Auto) 1 (0-10) % Baso % (Auto) 1 (0-2.5) % Neut # (Auto) 4.0 (1.8-7.7) Thou/mm3 Lymph # (Auto) 2.2 (1.0-4.8) Thou/mm3 [place] # (Auto) 0.6 (0.0-0.8) Thou/mm3 Eos # (Auto) 0.0 (0.0-0.5) Thou/mm3 Baso # (Auto) 0.0 (0.0-0.2) Thou/mm3 Immature Gran # (Auto) 0.01 H (0.00-0.00) Thou/mm3 Absolute Nucleated RBC 0.00 (0.00-0.00) Thou/mm3 Immature Gran % 0 (0-0) % Nucleated RBC % 0 (0) /100 WBC PT 10.9 (9.0-12.2) Seconds INR 1.0 (0.9-1.3) APTT 24.2 (22.0-36.0) Seconds Sodium 140 (136-145) mMol/L Potassium 3.8 (3.4-5.1) mMol/L Chloride 111 H (98-107) mMol/L Carbon Dioxide 21.2 (20.0-31.0) mMol/L Anion Gap 8 (7-16) BUN 7 L (9-23) mg/dL Creatinine 0.9 (0.6-1.3) mg/dL Estim Creat Clear Calc 70.6 (>60) mL/min eGFR > 60 (60 - ) See Note BUN/Creatinine Ratio 8 L (12-20) Ratio Glucose 76 (74-106) mg/dL Calculated Osmolality 276 (275-295) Calcium 8.7 (8.3-10.6) mg/dL Corrected Calcium 8.7 (8.5-10.1) mg/dL Total Bilirubin 0.5 (0.3-1.2) mg/dL AST 16 (0-34) U/L ALT 9 L (10-49) U/L Alkaline Phosphatase 95 (46-116) U/L Troponin I < 0.002 (0.0-0.045) ng/mL Total Protein 7.2 (5.7-8.2) gm/dL Albumin 4.0 (3.5-5.0) gm/dL Globulin 3.2 (2.3-3.5) gm/dL Albumin/Globulin Ratio 1.3 (1.2-2.2) Ur Collection Type Clean Catch Urine Color Yellow (Lt Yel-Yel) Urine Clarity Turbid A (Clear/Hazy) Urine pH 6.0 (5.0-7.0) Ur Specific [place] 1.017 (1.001-1.035) Urine Protein Trace (Neg - Trace) Urine Glucose (UA) Negative (Negative) Urine Ketones Negative (Negative) Urine Blood 3+ A (Negative) Urine Nitrite Negative (Negative) Urine Bilirubin Negative (Negative) Urine Urobilinogen (Auto) Negative (0.0-1.0) mg/dL Ur Leukocyte Esterase Negative (Negative) Urine RBC 2444 H (0-3) /hpf Urine WBC 8 H (0-5) /hpf Ur Squamous Epith Cells 1 (0-5) /hpf Urine Bacteria None (None) Urine HCG, Qual Negative Blood Type O Positive Antibody Screen NEGATIVE Blood Bank Wristband ID Yes Discharge Plan Plan Patient Disposition: HOME (Self Care) Patient condition on transfer: Stable Prescriptions/Referrals Prescriptions/Med Rec: No Action meclizine 25 mg tablet 25 mg PO BID PRN (Reason: dizziness) Qty: 10 0RF omeprazole 20 mg capsule,delayed release(DR/EC) 20 mg PO QDAY Qty: 14 0RF benzonatate 100 mg capsule 100 mg PO TID Qty: 14 0RF ibuprofen 600 mg tablet 600 mg PO Q6H Qty: 30 0RF albuterol sulfate [Ventolin HFA] 90 mcg/actuation HFA aerosol inhaler 2 puff inhalation Q6H PRN (Reason: shortness of breath or wheezing) Qty: 8.5 0RF alprazolam [Xanax] 0.5 mg tablet 0.5 mg PO BID PRN (Reason: anxiety) Qty: 10 0RF Referrals: No Primary/Family,Physician [Primary Care Provider] - In 1 week Kan Jean-Baptiste MD [Physician] - In 1 week Problem List Clinical Impression: Anemia, Weakness Patient/Caregiver Discharge Instructions Print Language: Andorran Stand Alone Forms: Amparo Award Info., Work/School Release, Patient Portal Info Letter PA/TYING MACHINE OPERATOR Supervising Physician PA/TYING MACHINE OPERATOR Supervising Physician: Gary Banerjee ENP
== END 2025-02-17 21:20 | disposition home or self-care (01) ==
PROVIDERS: Nurse Practitioner Primary Care; Emergency Provider Emergency Medicine
DX: D64.9 Anemia, unspecified (principal); I49.8 Other specified cardiac arrhythmias
CPT/HCPCS: 36415; 80053; 81001; 81025; 84484; 85025; 85610; 85730; 86850; 86900; 86901; 93005; 99283

== ENCOUNTER 2025-04-10 13:14 | Emergency (ER) | payer MEDICAID, SELFPAY ==
--- NOTE | 2025-04-10 13:17 | EKG_ITS ---
[facility] Test Date: 2025-04-10 Pat Name: ANA MG Department: Room: - Gender: Female Field Rep: : 1980 Requested By: ED Temporary Provider Order Number: [id number] Reading MD: ED Temporary Provider Measurements Intervals [place] Rate: 59 P: 42 [place]: 167 QRS: 28 QRSD: 96 T: 4 QT: 409 QTc: 407 Interpretive Statements SINUS BRADYCARDIA Compared to ECG 02/17/2025 16:37:04 Sinus rhythm no longer present Sinus arrhythmia no longer present Myocardial infarct finding no longer present /store/S0/[id number].pdf
[2025-04-10 13:37] VITALS: BP 109/74; PULSE 60; RESP 18; TEMP 37.3; O2SAT 98
--- NOTE | 2025-04-10 13:44 | XR_ITS ---
Examination: PA lateral chest 2 views Technique one upright PA lateral chest 2 views Date and time: April 10, 2025 1350 hours INDICATIONS: Chest pain beginning 2 days ago. FINDINGS: Suspicious for early pneumonia left lateral base Right lung clear Normal heart size IMPRESSION: Suspicious for early left base pneumonia
--- NOTE | 2025-04-10 13:44 | PD.EDRME ---
Rapid Medical Screening Exam RME Arrival date/time: 04/10/25 13:14 44-year-old female with no known medical history presents to the emergency room with a chief complaint of left-sided 9 out of 10 sternal chest pain that radiates to her left arm and shoulder x 2 days I have greeted and performed a focused initial assessment of this patient. A comprehensive ED assessment and evaluation of the patient, analysis of all test results, and completion of the medical decision making process will be conducted by additional ED providers. Chief Complaint: Chest Pain Time Seen by Provider: 04/10/25 13:31 Vital signs: Vital Signs Temperature 99.1 F 04/10/25 13:37 Pulse Rate 60 04/10/25 13:37 Respiratory Rate 18 04/10/25 13:37 Blood Pressure 109/74 04/10/25 13:37 Pulse Oximetry (%) 98 04/10/25 13:37 Oxygen Delivery Method Room Air 04/10/25 13:37 Vital signs reviewed by provider: Yes
[2025-04-10 14:05] LABS: Basophils % (Auto) 0 % (0-2.5); Eosinophils # (Auto) 0.1 Thou/mm3 (0.0-0.5); Eosinophils % (Auto) 1 % (0-10); Hematocrit 24.7 % (36.0-46.0); Immature Granulocytes % (Auto) 0 % (0-0); Immature Granulocytes Auto 0.01 Thou/mm3 (0.00-0.00); Lymphocytes # (Auto) 2.4 Thou/mm3 (1.0-4.8); Lymphocytes % (Auto) 36 % (10-50); Mean Corpuscular HGB Conc 30.4 g/dl (31.0-37.0); Mean Corpuscular Hemoglobin 19.6 pg (25.0-35.0); Mean Corpuscular Volume 65 fL (80-100); Monocytes # (Auto) 0.6 Thou/mm3 (0.0-0.8); Monocytes % (Auto) 9 % (0-12); Neutrophils # (Auto) 3.5 Thou/mm3 (1.8-7.7); Neutrophils % (Auto) 53 % (37-80); Nucleated Red Blood Cell % 0 /100 WBC (0); Platelet Count 352 Thou/mm3 (140-440); RDW Standard Deviation 40.6 fL (36.4-46.3); Red Blood Count 3.83 Miln/mm3 (4.00-5.20); White Blood Count 6.7 Thou/mm3 (3.6-11.0)
[2025-04-10 14:09] LABS: Hemoglobin 7.5 g/dL (12.0-16.0)
[2025-04-10 14:17] LABS: Collection Type, Urine Clean Catch
[2025-04-10 14:27] LABS: B-Type Natriuretic Peptide 47 pg/mL (0-100)
[2025-04-10 14:28] LABS: Alanine Aminotransferase < 7 U/L (10-49); Albumin, Serum 4.2 gm/dL (3.5-5.0); Albumin/Globulin Ratio 1.4 (1.2-2.2); Alkaline Phosphatase 91 U/L (46-116); Anion Gap 10 (7-16); Aspartate Amino Transferase 16 U/L (0-34); BUN/Creatinine Ratio 9 Ratio (12-20); Bilirubin,Total 0.5 mg/dL (0.3-1.2); Blood Urea Nitrogen 9 mg/dL (9-23); Carbon Dioxide 22.7 mMol/L (20.0-31.0); Chloride 103 mMol/L (98-107); Globulin 3.1 gm/dL (2.3-3.5); Glucose 89 mg/dL (74-106); Magnesium 1.9 mg/dL (1.6-2.6); Osmolality,Calculated 269 (275-295); Potassium 3.9 mMol/L (3.4-5.1); Sodium 136 mMol/L (136-145); Total Protein 7.3 gm/dL (5.7-8.2); Troponin I < 0.002 ng/mL (0.0-0.045); eGFR > 60 See Note
[2025-04-10 14:29] LABS: Bilirubin,Urine Negative (Negative); Blood,Urine Negative (Negative); Clarity,Urine Clear (Clear/Hazy); Color,Urine Lt-Yellow (Lt Yel-Yel); Glucose, Urine Negative (Negative); Ketones,Urine Negative (Negative); Leukocyte Esterase,Urine Negative (Negative); Nitrite,Urine Negative (Negative); PH,Urine 6.5 (5.0-7.0); Protein,Urine Negative (Neg - Trace); RBC,Urine 1 /hpf (0-3); Specific Gravity,Urine 1.009 (1.001-1.035); Squamous Epithelial Cell,Urine 2 /hpf (0-5); Urobilinogen,Urine Negative mg/dL (0.0-1.0); WBC,Urine 1 /hpf (0-5)
[2025-04-10 15:38] LABS: Partial Thromboplastin Time 23.7 Seconds (22.0-36.0); Prothrombin Time 10.8 Seconds (9.0-12.2)
--- NOTE | 2025-04-10 17:27 | EDNOTE_ITS ---
ED Chest Pain RME/HPI General Chief Complaint: Chest Pain Stated Complaint: CHEST PAIN, SOB Time Seen by Provider: 04/10/25 13:31 Arrival date/time: 04/10/25 13:14 Limitations: no limitations RME / HPI RME / HPI narrative: 04/10/25 13:14 44-year-old female with no known medical history presents to the emergency room with a chief complaint of left-sided 9 out of 10 sternal chest pain that radiates to her left arm and shoulder x 2 days I have greeted and performed a focused initial assessment of this patient. A comprehensive ED assessment and evaluation of the patient, analysis of all test results, and completion of the medical decision making process will be conducted by additional ED providers. DR. SHIN MAIN ED EVALUATION: 44 year old female with history of chronic iron deficiency anemia on iron TID presents to the ED with complaint of midsternal, right and left, chest pain for the past 2 days. The pain is constant in nature and worsens with deep inspiration and coughing. The patient denies any worsening of the pain with movement or changes in position. They report a similar episode of chest pain in the pas. There is no associated fever, shortness of breath, palpitations, or recent trauma. No known recent upper respiratory illness or vigorous physical activity preceding the onset of symptoms. Related Data Previous Rx's ?Medication ?Instructions ?Recorded omeprazole 20 mg capsule,delayed 20 mg PO QDAY #14 cap s 02/21/23 release albuterol sulfate 90 mcg/actuation 2 puff inhalation Q 6H PRN 10/14/24 aerosol inhaler (Ventolin HFA) shortness of breath or wheezing #8.5 grams benzonatate 100 mg capsule 100 mg PO TID #14 caps 09/21 04/12 ibuprofen 600 mg tablet 600 mg PO Q6H #30 tabs 10/14 alprazolam 0.5 mg tablet (Xanax) 0.5 mg PO BID PRN anx iety #10 tabs 01/04/25 meclizine 25 mg tablet 25 mg PO BID PRN dizziness # 10 tabs 01/14/25 Allergies Allergy/AdvReac Type Severity Reaction Status Date / Time No Known Allergies Allergy Verified 02/17/25 16:04 Review of Systems Review of Systems Systems Reviewed: All systems reviewed, normal except as documented Past Medical History Past Medical History NEUROLOGIC: Negative Neurological Disorders CARDIAC: Negative Cardiac Disorders Social History SMOKING STATUS: Never smoker ED Exam General Limitations: Present no limitations General appearance: Present alert and other (Appears pale, fatigued) Head Head exam: Present atraumatic, normocephalic and normal inspection Eye Eye exam: Present normal appearance, PERRL and EOMI ENT ENT exam: Present normal exam, normal oropharynx and mucous membranes moist Neck Neck exam: Present normal inspection, full ROM and trachea midline Chest Chest inspection: Present symmetric chest wall rise and other (Costochondral tenderness on both sides from T2 to T6 that reproduced tenderness ) Respiratory Respiratory exam: Present normal lung sounds bilaterally Cardiovascular Cardiovascular exam: Present regular rate, normal rhythm and normal heart sounds Abdominal Exam Abdominal exam: Present soft and normal bowel sounds Extremities Exam Extremities exam: Present normal inspection and full ROM Back Exam Back exam: Present normal inspection and full ROM Neurological Exam Neurological exam: Present alert, oriented X3 and CN II-XII intact Psychiatric Psychiatric exam: Present normal affect and normal mood Skin Skin exam: Present warm, dry, intact and normal color Course Quality Measures none Orders Category Date Time Status EKG (ED ONLY) *Do not use* NOW Care 04/10/25 13:17 Completed EKG (ED Only) Stat Exams 04/10/25 13:17 Ordered XR chest 2V Stat Exams 04/10/25 13:44 Completed B-Type Natriuretic Peptide Stat Lab 04/10/25 13:57 Completed CBC Stat Lab 04/10/25 13:57 Completed Comprehensive Metabolic Panel Stat Lab 04/10/25 13:57 Completed Magnesium Stat Lab 04/10/25 13:57 Completed Partial Thromboplastin Time Stat Lab 04/10/25 13:57 Completed Prothrombin Time with INR Stat Lab 04/10/25 13:57 Completed Troponin I Stat Lab 04/10/25 13:57 Completed Urinalysis Stat Lab 04/10/25 14:10 Completed Vital Signs Vital signs: Vital Signs Temperature 99.1 F 04/10/25 13:37 Pulse Rate 60 04/10/25 13:37 Respiratory Rate 18 04/10/25 13:37 Blood Pressure 109/74 04/10/25 13:37 Pulse Oximetry (%) 98 04/10/25 13:37 Oxygen Delivery Method Room Air 04/10/25 13:37 Pulse ox is 98% on room air which is adequate. Chest Pain MDM Narrative MDM Narrative:: Stacie Rangel, am scribing for and in the presence of Dr. Shin. Patient remains clinically stable throughout the emergency department visit. We reviewed all the results, analysis, and treatment plans. Patient is amenable to discharge. Strict return precautions were outlined. Patient was discharged in stable condition. Patient data External records reviewed:: [facility] previous records (I reviewed ED visit on 02/17/2025 ) Clinical information provided by:: patient Social determinants that could affect healthcare access:: none Patient has the following chronic illnesses:: iron deficiency anemia How is presenting disease/condition affected by chronic disease/condition?: exacerbated by Evaluation data The following diagnostics were reviewed and interpreted by me:: lab results, radiology exam(s) and EKG tracing(s) (EKG at 13:35. Sinus bradycardia, rate 59, TX int 167 ms, QRS dur 96ms, QT/QTc 409/409 ms, no STEMI. ) Lab and/or radiology exams considered but not ordered:: None Interpretation Summary: Ordering Physician: Kofi Lizarraga Date of Service: 04/10/25 Procedure(s): XR chest 2V Accession Number(s): [id number] cc: Kofi Lizarraga; Jerel Cabrera MD; NO PRIMARY/FAMILY,PHYSICIAN~ Examination: PA lateral chest 2 views Technique one upright PA lateral chest 2 views Date and time: April 10, 2025 1350 hours INDICATIONS: Chest pain beginning 2 days ago. FINDINGS: Suspicious for early pneumonia left lateral base Right lung clear Normal heart size IMPRESSION: Suspicious for early left base pneumonia Dictated By: Jerel Cabrera MD Signed By: <Electronically signed by Jerel Cabrera MD in OV> 04/10/25 1404 Medications / Prescriptions Medications or Prescriptions considered but not ordered:: None Medication administrations:: None Consultations Consultation(s) initiated? (list below): No Diagnosis Chest Pain Differential Diagnosis: stable angina, atypical chest pain, st elevation myocardial infarction, costochondritis, chest pain and biliary colic Most likely diagnosis given after review of the tests above:: Chest pain Costochondritis Admission Indicated Admission indicated?: not indicated Admission Request Was there a request for admission?: No Disposition Plan Disposition Plan: Discharge Discharge Attestation Discharge Attestation: The patient and all family members were given an opportunity to ask questions and understood the discharge instructions. Discharge instructions specifically effects, indications for sooner follow up or return to the emergency department, and the expected course of current diagnosis. Patient condition: Stable Discharge Plan Plan Patient Disposition: HOME (Self Care) Prescriptions/Referrals Prescriptions/Med Rec: No Action meclizine 25 mg tablet 25 mg PO BID PRN (Reason: dizziness) Qty: 10 0RF omeprazole 20 mg capsule,delayed release(DR/EC) 20 mg PO QDAY Qty: 14 0RF benzonatate 100 mg capsule 100 mg PO TID Qty: 14 0RF ibuprofen 600 mg tablet 600 mg PO Q6H Qty: 30 0RF albuterol sulfate [Ventolin HFA] 90 mcg/actuation HFA aerosol inhaler 2 puff inhalation Q6H PRN (Reason: shortness of breath or wheezing) Qty: 8.5 0RF alprazolam [Xanax] 0.5 mg tablet 0.5 mg PO BID PRN (Reason: anxiety) Qty: 10 0RF Referrals: No Primary/Family,Physician [Primary Care Provider] - In 1 week Problem List Clinical Impression: Chest pain, Costochondritis Patient/Caregiver Discharge Instructions Education Materials: Costochondritis, ED Chest Pain, Uncertain Cause Additional Instructions: Follow-up with your primary care doctor in 3 to 5 days for recheck, stress test, and referral to security support analyst. You can return to the emergency department sooner if symptoms worsen or if you notice any new, concerning issues. For pain, take both 1-2 Tylenol 500mg tablets every 6 hours AND 2 Advil Gel 200mg capsules every 6 hours. Print Language: Sinhala Stand Alone Forms: Amparo Award Info., Patient Portal Info Letter
== END 2025-04-10 17:38 | disposition home or self-care (01) ==
PROVIDERS: Nurse Practitioner Family; Emergency Provider Family Medicine
DX: M94.0 Chondrocostal junction syndrome [Tietze] (principal); R00.1 Bradycardia, unspecified
CPT/HCPCS: 36415; 71046; 80053; 81001; 83735; 83880; 84484; 85025; 85610; 85730; 93005; 99283

== ENCOUNTER 2025-04-15 13:13 | Emergency (ER) | payer MEDICAID, SELFPAY ==
[2025-04-15 13:14] VITALS: BMI 25.6
--- NOTE | 2025-04-15 13:16 | EKG_ITS ---
[facility] Test Date: 2025-04-15 Pat Name: ANA MG Department: Room: - Gender: Female Communication Lecturer: : 1980 Requested By: ED Temporary Provider Order Number: [id number] Reading MD: ED Temporary Provider Measurements Intervals [place] Rate: 69 P: 43 HI: 153 QRS: 15 QRSD: 98 T: -11 QT: 424 QTc: 454 Interpretive Statements SINUS RHYTHM MODERATE T-WAVE ABNORMALITY, CONSIDER ANTERIOR ISCHEMIA [-0.1+ mV T-WAVE IN V3/V4] Compared to ECG 04/10/2025 13:35:35 T-wave abnormality now present Possible ischemia now present Sinus bradycardia no longer present /store/S0/[id number]/[id number].pdf
--- NOTE | 2025-04-15 13:38 | XR_ITS ---
Examination: PA chest lateral 2 views TECHNIQUE: Upright PA lateral chest 2 views Date and time: April 15, 2025 1452 hours INDICATIONS: Chest pain today. FINDINGS: Normal heart size Lungs are clear. The osseous structures are intact IMPRESSION: No active disease
--- NOTE | 2025-04-15 13:39 | PD.EDCHEST ---
ED Chest Pain RME/HPI General Chief Complaint: Chest Pain Stated Complaint: CHEST PAIN X15 MINS Time Seen by Provider: 04/15/25 13:29 Source: patient Arrival date/time: 04/15/25 13:13 44-year-old female with no known medical history presents to the emergency room with a chief complaint of left-sided 7 out of 10 sternal chest pain that radiates to her back x 15 minutes Mode of arrival: ambulatory Limitations: no limitations Related Data Previous Rx's ?Medication ?Instructions ?Recorded omeprazole 20 mg capsule,delayed 20 mg PO QDAY #14 caps 02/21/23 release albuterol sulfate 90 mcg/actuation 2 puff inhalation Q6H PRN 10/14/24 aerosol inhaler (Ventolin HFA) shortness of breath or wheezing #8.5 grams benzonatate 100 mg capsule 100 mg PO TID #14 caps 10/14/24 ibuprofen 600 mg tablet 600 mg PO Q6H #30 tabs 10/14/24 alprazolam 0.5 mg tablet (Xanax) 0.5 mg PO BID PRN anxiety #10 tabs 01/04/25 meclizine 25 mg tablet 25 mg PO BID PRN dizziness #10 tabs 01/14/25 Allergies Allergy/AdvReac Type Severity Reaction Status Date / Time No Known Allergies Allergy Verified 04/15/25 13:16 ED Exam General Limitations: Present no limitations Course Orders Category Date Time Status EKG (ED ONLY) *Do not use* NOW Care 04/15/25 13:16 Active EKG (ED Only) Stat Exams 04/15/25 13:16 Ordered XR chest 2V Stat Exams 04/15/25 13:38 Ordered B-Type Natriuretic Peptide Stat Lab 04/15/25 13:38 Ordered CBC Stat Lab 04/15/25 13:38 Ordered Comprehensive Metabolic Panel Stat Lab 04/15/25 13:38 Ordered Drug Screen,Urine Stat Lab 04/15/25 13:38 Ordered Magnesium Stat Lab 04/15/25 13:38 Ordered Troponin I Stat Lab 04/15/25 13:38 Ordered Urinalysis Stat Lab 04/15/25 13:38 Ordered Discharge Plan Prescriptions/Referrals Prescriptions/Med Rec: No Action meclizine 25 mg tablet 25 mg PO BID PRN (Reason: dizziness) Qty: 10 0RF omeprazole 20 mg capsule,delayed release(DR/EC) 20 mg PO QDAY Qty: 14 0RF benzonatate 100 mg capsule 100 mg PO TID Qty: 14 0RF ibuprofen 600 mg tablet 600 mg PO Q6H Qty: 30 0RF albuterol sulfate [Ventolin HFA] 90 mcg/actuation HFA aerosol inhaler 2 puff inhalation Q6H PRN (Reason: shortness of breath or wheezing) Qty: 8.5 0RF alprazolam [Xanax] 0.5 mg tablet 0.5 mg PO BID PRN (Reason: anxiety) Qty: 10 0RF Patient/Caregiver Discharge Instructions Print Language: Cuban
--- NOTE | 2025-04-15 13:40 | PD.EDRME ---
Rapid Medical Screening Exam RME Arrival date/time: 04/15/25 13:13 44-year-old female with no known medical history presents to the emergency room with a chief complaint of left-sided 7 out of 10 sternal chest pain that radiates to her back x 15 minutes I have greeted and performed a focused initial assessment of this patient. A comprehensive ED assessment and evaluation of the patient, analysis of all test results, and completion of the medical decision making process will be conducted by additional ED providers. Chief Complaint: Chest Pain Time Seen by Provider: 04/15/25 13:29 Vital signs: Vital Signs Temperature 98.5 F 04/15/25 13:53 Pulse Rate 68 04/15/25 13:53 Respiratory Rate 18 04/15/25 13:53 Blood Pressure 107/69 04/15/25 13:53 Pulse Oximetry (%) 99 04/15/25 13:53 Oxygen Delivery Method Room Air 04/15/25 13:53 Vital signs reviewed by provider: Yes
[2025-04-15 13:53] VITALS: BP 107/69; PULSE 68; RESP 18; TEMP 36.9; O2SAT 99
[2025-04-15 14:08] LABS: Basophils % (Auto) 1 % (0-2.5); Eosinophils # (Auto) 0.1 Thou/mm3 (0.0-0.5); Eosinophils % (Auto) 1 % (0-10); Immature Granulocytes % (Auto) 0 % (0-0); Immature Granulocytes Auto 0.01 Thou/mm3 (0.00-0.00); Lymphocytes # (Auto) 2.2 Thou/mm3 (1.0-4.8); Lymphocytes % (Auto) 36 % (10-50); Mean Corpuscular Hemoglobin 19.4 pg (25.0-35.0); Mean Corpuscular Volume 65 fL (80-100); Monocytes # (Auto) 0.5 Thou/mm3 (0.0-0.8); Monocytes % (Auto) 9 % (0-12); Neutrophils # (Auto) 3.2 Thou/mm3 (1.8-7.7); Neutrophils % (Auto) 53 % (37-80); Nucleated Red Blood Cell % 0 /100 WBC (0); Platelet Count 325 Thou/mm3 (140-440); RDW Standard Deviation 40.7 fL (36.4-46.3); Red Blood Count 3.71 Miln/mm3 (4.00-5.20)
[2025-04-15 14:23] LABS: B-Type Natriuretic Peptide 30 pg/mL (0-100)
[2025-04-15 14:25] LABS: Hemoglobin 7.2 g/dL (12.0-16.0)
[2025-04-15 14:35] LABS: Alanine Aminotransferase < 7 U/L (10-49); Albumin, Serum 4.1 gm/dL (3.5-5.0); Albumin/Globulin Ratio 1.5 (1.2-2.2); Alkaline Phosphatase 88 U/L (46-116); Anion Gap 9 (7-16); Aspartate Amino Transferase 15 U/L (0-34); BUN/Creatinine Ratio 9 Ratio (12-20); Bilirubin,Total 0.4 mg/dL (0.3-1.2); Blood Urea Nitrogen 8 mg/dL (9-23); Calcium 8.5 mg/dL (8.3-10.6); Calcium (Corrected) 8.5 mg/dL (8.5-10.1); Carbon Dioxide 23.8 mMol/L (20.0-31.0); Chloride 106 mMol/L (98-107); Creatinine (Component) 0.9 mg/dL (0.6-1.3); Estimated Creatinine Clearance 68.4 mL/min (>60); Globulin 2.8 gm/dL (2.3-3.5); Glucose 89 mg/dL (74-106); Magnesium 1.8 mg/dL (1.6-2.6); Osmolality,Calculated 274 (275-295); Potassium 3.8 mMol/L (3.4-5.1); Sodium 139 mMol/L (136-145); Total Protein 6.9 gm/dL (5.7-8.2); Troponin I < 0.002 ng/mL (0.0-0.045); eGFR > 60 See Note
[2025-04-15 14:45] LABS: Collection Type, Urine Clean Catch
[2025-04-15 14:55] LABS: Bilirubin,Urine Negative (Negative); Blood,Urine Negative (Negative); Clarity,Urine Clear (Clear/Hazy); Color,Urine Lt-Yellow (Lt Yel-Yel); Glucose, Urine Negative (Negative); Ketones,Urine Negative (Negative); Leukocyte Esterase,Urine Negative (Negative); Nitrite,Urine Negative (Negative); PH,Urine 6.5 (5.0-7.0); Protein,Urine Negative (Neg - Trace); RBC,Urine < 1 /hpf (0-3); Specific Gravity,Urine 1.008 (1.001-1.035); Squamous Epithelial Cell,Urine 3 /hpf (0-5); Urobilinogen,Urine Negative mg/dL (0.0-1.0); WBC,Urine < 1 /hpf (0-5)
[2025-04-15 15:01] LABS: Amphetamine/Methamp Scrn,U Negative (Negative); Barbiturate Screen,Urine Negative (Negative); Benzodiazepines Screen,Urine Negative (Negative); Benzoylecgonine Screen, Ur Negative (Negative); Fentanyl Screen,Urine Negative (Negative); Opiate Screen,Urine Negative (Negative); THC Screen,Urine Negative (Negative)
[2025-04-15 16:26] VITALS: BP 110/79; PULSE 66; RESP 18; TEMP 36.6; O2SAT 99
--- NOTE | 2025-04-15 16:28 | PD.EDCHEST ---
ED Chest Pain RME/HPI General Chief Complaint: Chest Pain Stated Complaint: CHEST PAIN X15 MINS Time Seen by Provider: 04/15/25 13:29 Arrival date/time: 04/15/25 13:13 This is a case 44-year-old female with no known medical history presents to the emergency room with a chief complaint of left-sided 7 out of 10 sternal chest pain that radiates to her back x 15 minutes patient was seen April 10, 2025 and was treated also for chest pain and possible pneumonia patient was given medication patient was fine and chest pain-free with upon discharge recurrence of the chest pain today this patient decided to start consult here in the emergency room patient have mild shortness of breath but no palpitation no headache no fever Limitations: no limitations RME / HPI RME / HPI narrative: 04/15/25 13:13 44-year-old female with no known medical history presents to the emergency room with a chief complaint of left-sided 7 out of 10 sternal chest pain that radiates to her back x 15 minutes I have greeted and performed a focused initial assessment of this patient. A comprehensive ED assessment and evaluation of the patient, analysis of all test results, and completion of the medical decision making process will be conducted by additional ED providers. Related Data Previous Rx's ?Medication ?Instructions ?Recorded omeprazole 20 mg capsule,delayed 20 mg PO QDAY #14 caps 02/21/23 release albuterol sulfate 90 mcg/actuation 2 puff inhalation Q6H PRN 10/14/24 aerosol inhaler (Ventolin HFA) shortness of breath or wheezing #8.5 grams benzonatate 100 mg capsule 100 mg PO TID #14 caps 10/14/24 ibuprofen 600 mg tablet 600 mg PO Q6H #30 tabs 10/14/24 alprazolam 0.5 mg tablet (Xanax) 0.5 mg PO BID PRN anxiety #10 tabs 01/04/25 meclizine 25 mg tablet 25 mg PO BID PRN dizziness #10 tabs 01/14/25 Allergies Allergy/AdvReac Type Severity Reaction Status Date / Time No Known Allergies Allergy Verified 04/15/25 13:16 Review of Systems Review of Systems Systems Reviewed: All systems reviewed, normal except as documented Constitutional Constitutional: Reports system reviewed and no additional complaints, except as documented, Reports as per HPI, Denies anorexia, Denies chills and Denies fever(s) Cardiovascular Cardiovascular: Reports system reviewed and no additional complaints, except as documented, Reports chest pain, Denies chest pain at rest, Denies chest pain with activity, Denies claudication, Denies diaphoresis, Reports dyspnea, Denies dyspnea on exertion, Denies edema, Denies irregular heart rhythm and Denies leg edema Respiratory Respiratory: Reports system reviewed and no additional complaints, except as documented, Denies as per HPI, Reports dyspnea and Denies dyspnea on exertion Gastrointestinal Gastrointestinal: Reports system reviewed and no additional complaints, except as documented and Reports as per HPI Musculoskeletal Musculoskeletal: Reports system reviewed and no additional complaints, except as documented and Reports as per HPI Neurologic Neurologic: Reports system reviewed and no additional complaints, except as documented and Reports as per HPI Past Medical History Past Medical History NEUROLOGIC: Negative Neurological Disorders CARDIAC: Negative Cardiac Disorders Social History SMOKING STATUS: Never smoker ED Exam General Limitations: Present no limitations General appearance: Present alert and in no apparent distress; Absent appears intoxicated, anxious or lethargic Head Head exam: Present atraumatic Eye Eye exam: Present normal appearance, PERRL and EOMI ENT ENT exam: Present normal exam, normal oropharynx and mucous membranes moist Neck Neck exam: Present normal inspection, full ROM and trachea midline Chest Chest inspection: Present normal inspection and symmetric chest wall rise Respiratory Respiratory exam: Present normal lung sounds bilaterally; Absent respiratory distress, wheezes, stridor, accessory muscle use or prolonged expiratory phase Cardiovascular Cardiovascular exam: Present regular rate, normal rhythm and normal heart sounds; Absent bradycardia, tachycardia, irregular rhythm, systolic murmur or diastolic murmur Abdominal Exam Abdominal exam: Present soft and normal bowel sounds Extremities Exam Extremities exam: Present normal inspection and full ROM Back Exam Back exam: Present normal inspection and full ROM Neurological Exam Neurological exam: Present alert, oriented X3, CN II-XII intact, normal gait and reflexes normal; Absent motor sensory deficit Psychiatric Psychiatric exam: Present normal affect and normal mood Skin Skin exam: Present warm, dry, intact and normal color Course Quality Measures none Orders Category Date Time Status EKG (ED ONLY) *Do not use* NOW Care 04/15/25 13:16 Completed EKG (ED Only) Stat Exams 04/15/25 13:16 Draft XR chest 2V Stat Exams 04/15/25 13:38 Completed B-Type Natriuretic Peptide Stat Lab 04/15/25 14:00 Completed CBC Stat Lab 04/15/25 14:00 Completed Comprehensive Metabolic Panel Stat Lab 04/15/25 14:00 Completed Drug Screen,Urine Stat Lab 04/15/25 14:31 Completed Magnesium Stat Lab 04/15/25 14:00 Completed Troponin I Stat Lab 04/15/25 14:00 Completed Urinalysis Stat Lab 04/15/25 14:31 Completed Vital Signs Vital signs: Vital Signs Temperature 98.5 F 04/15/25 13:53 Pulse Rate 68 04/15/25 13:53 Respiratory Rate 18 04/15/25 13:53 Blood Pressure 107/69 04/15/25 13:53 Pulse Oximetry (%) 99 04/15/25 13:53 Oxygen Delivery Method Room Air 04/15/25 13:53 Oxygen saturation 99% on room air Chest Pain MDM Narrative MDM Narrative:: This is a case 44-year-old female with no known medical history presents to the emergency room with a chief complaint of left-sided 7 out of 10 sternal chest pain that radiates to her back x 15 minutes patient was seen April 10, 2025 and was treated also for chest pain and possible pneumonia patient was given medication patient was fine and chest pain-free with upon discharge recurrence of the chest pain today this patient decided to start consult here in the emergency room patient have mild shortness of breath but no palpitation no headache no fever Physical examination patient is awake alert oriented not in distress not toxic looking well-hydrated well-nourished vital signs stable BP stable not tachycardic not tachypneic afebrile and nonhypoxic patient lung sound is clear no crackles no rales no retraction no stridor patient heart normal rate regular rhythm no murmur the rest of the physical examination and neurological exam is normal and unremarkable Patient blood test showed no leukocytosis patient is anemia with hemoglobin of 7.2 and hematocrit of 24 platelet is normal patient kidney and liver function is normal no electrolyte imbalance patient urinalysis is normal patient troponin is negative patient magnesium is normal patient chest x-ray is normal patient EKG showed sinus rhythm 69 with T wave abnormality I discussed with Dr. Palacios regarding the EKG result discussed patient condition history and physical examination results of the blood test we compared the EKG from the previous visit there is no changes on the EKG we also discussed regarding patient anemia with hemoglobin 7.2 there is no vaginal bleeding or any kind of bleeding with the patient patient is currently already taking iron 3 times a day at this point my supervising physician agreed that the patient can be discharged with stable condition with a short follow-up with the primary care physician and with the specialist I discussed with the patient her treatment plan and the results of his test she will continue the medication that was prescribed from the previous visit he will follow-up with primary care physician and needs to see a gyroscopic instrument mechanic as soon as possible for chest pain for possible echocardiogram stress test and Holter monitor she also need to see a community service aide for chronic anemia patient understood very well the discharge instruction at this time I will not give any medication she will just continue the medication that was prescribed with the previous provider Patient was discharged with comfortable condition walking with stable gait. Patient verbalized no further complains explained diagnosis and answered patient question. Patient is comfortable with the proposed management plan including the need to follow up with his/her primary care physician and any specialist if applicable Discussed patient for any urgent condition or worsening sx, He/She needed to go to emergency room immediately or call 911. Patient acknowledge the responsibility to follow up as instructed and to monitor her/his symptoms. For any persistence of the symptoms for more than 3-5 days return precaution advised. Discussed the result of the test and was given printed discharge instruction Patient data External records reviewed:: [facility] previous records Clinical information provided by:: none Social determinants that could affect healthcare access:: none Patient has the following chronic illnesses:: None How is presenting disease/condition affected by chronic disease/condition?: no chronic disease Evaluation data The following diagnostics were reviewed and interpreted by me:: lab results and radiology exam(s) Lab and/or radiology exams considered but not ordered:: Reviewed Interpretation Summary: Reviewed Medications / Prescriptions Medications or Prescriptions considered but not ordered:: Given Medication administrations:: Given Consultations Consultation(s) initiated? (list below): Yes Consultation #1 (Physician, Specialty, Details): dr palacios pls see narrataive mdm Diagnosis Chest Pain Differential Diagnosis: stable angina, atypical chest pain, costochondritis and chest pain Most likely diagnosis given after review of the tests above:: Chest pain of unknown etiology Admission Indicated Admission indicated?: not indicated Explain why admission is indicated or not indicated:: Not indicated Admission Request Was there a request for admission?: No Admission Attestation Admission request attestation: Not indicated Disposition Plan Disposition Plan: Discharge Discharge Attestation Discharge Attestation: The patient and all family members were given an opportunity to ask questions and understood the discharge instructions. Discharge instructions specifically effects, indications for sooner follow up or return to the emergency department, and the expected course of current diagnosis. Patient condition: Stable Discharge Plan Plan Patient Disposition: HOME (Self Care) Patient condition on transfer: Stable Prescriptions/Referrals Prescriptions/Med Rec: No Action meclizine 25 mg tablet 25 mg PO BID PRN (Reason: dizziness) Qty: 10 0RF omeprazole 20 mg capsule,delayed release(DR/EC) 20 mg PO QDAY Qty: 14 0RF benzonatate 100 mg capsule 100 mg PO TID Qty: 14 0RF ibuprofen 600 mg tablet 600 mg PO Q6H Qty: 30 0RF albuterol sulfate [Ventolin HFA] 90 mcg/actuation HFA aerosol inhaler 2 puff inhalation Q6H PRN (Reason: shortness of breath or wheezing) Qty: 8.5 0RF alprazolam [Xanax] 0.5 mg tablet 0.5 mg PO BID PRN (Reason: anxiety) Qty: 10 0RF Referrals: gyroscopic instrument mechanic [Other] - In 1 week Ken Myrick MD [Referring Provider] - 04/17/25 (For further evaluation and treatment of chest pain for possible echocardiogram stress test and Holter monitor) Alfonzo Munoz MD [Physician] - In 1 week (For further evaluation and treatment of chronic anemia) Dolly Yousif [Primary Care Provider] - In 1 week Problem List Clinical Impression: Chest pain, Anemia, chronic disease Patient/Caregiver Discharge Instructions Education Materials: Anemia, ED Chest Pain, Uncertain Cause Additional Instructions: Follow-up with your primary care physician in 2 days for reevaluation it is very important to see a gyroscopic instrument mechanic for chest pain of unknown etiology for possible echocardiogram stress test and Holter monitor it is also important to see a community service aide for your chronic anemia continue to take your iron 3 times a day as directed by your doctor for any recurrence worsening symptoms or any emergent concern return to the emergency room immediately or call 911 Print Language: Korean Stand Alone Forms: Amparo Award Info., Patient Portal Info Letter PA/TIERA Supervising Physician PA/TIERA Supervising Physician: dr palacios
== END 2025-04-15 17:13 | disposition home or self-care (01) ==
PROVIDERS: Nurse Practitioner Family; Emergency Provider Emergency Medicine; PCP Registered Nurse Community Health
DX: R07.2 Precordial pain (principal); D63.8 Anemia in other chronic diseases classified elsewhere
CPT/HCPCS: 36415; 71046; 80053; 80307; 81001; 83735; 83880; 84484; 85025; 93005; 99283

== ENCOUNTER 2025-05-08 14:07 | Outpatient (AMB) | payer MEDICAID, SELFPAY ==
--- NOTE | 2025-05-08 14:32 | GYNCLNT_ITS ---
Vital Signs 05/08/25 14:33 Height 1.57 m Height Method Measured Weight 76.26 kg Weight Measurement Method Standing Scale BMI 30.9 BP 110/71 Blood Pressure Source Automatic Cuff Blood Pressure Location Right Upper Arm Position Sitting Respiration 17 Pulse 81 Pulse Source Monitor Temp 98.2 F Temp Source Temporal Artery Scan Pulse Oximetry (%) 97 Oxygen Delivery Method Room Air Allergies/Home Meds Allergies & Medications Allergies No Known Allergies Allergy (Verified 06/06/25 15:16) Medication Reconciliation multivitamin with iron (Daily Vitamin with Iron tablet) 1 tab PO QDAY 05/08/25 [History Confirmed 05/08/25] Intake Visit Data Collection New Patient or Established: Established Patient (seen at [facility] within 3 years) Reason for Visit:: REFERRAL Seen by Clinical Staff ONLY (RN/MA): No Business Intelligence Analyst Required: No Do You Feel Safe at Home: Yes Authorities Contacted: N/A PCP or OBGYN visit in last 3 months: Yes Date of Last PCP or OBGYN visit: 01/16/25 Hx Now: No Are you currently on any form of Control: No Last menstrual period: 04/29/25 Pain Present Currently: No Pain Scale Used: Noe-King/Numerical Pain scale:: 0 Smoking Status Smoking Status: Never 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 1. Little interest or pleasure in doing things: not at all 2. Feeling down, depressed, or hopeless: not at all Total score: 0 PHQ-9 3. Trouble falling or staying asleep, or sleeping too much: Not at all 4. Feeling tired or having little energy: Not at all 5. Poor appetite or overeating: Not at all 6. Feeling bad about yourself - or that you are a failure or have let yourself or your family down: Not at all 7. Trouble concentrating on things, such as reading the newspaper or watching television: Not at all 8. Moving or speaking so slowly that other people could have noticed? - Or the opposite - being so fidgety or restless that you have been moving around a lot more than usual: not at all 9. Thoughts that you would be better off or of hurting yourself in some way: Not at all Total score: 0 If you checked off any problems, how difficult have these problems made it for you to do your work, take care of things at home, or get along with other people?: not difficult at all Source: Developed by Drs. Kentrell Okeefe, Irene Orr, Saeed Ge and colleagues, with an educational kiara from [employer]. Depression screen completed yes Social History Living Situation History Marital Status: Lives With: Family Housing: House Tobacco History Smoking Status: Never smoker Second Hand Smoke Exposure: No Alcohol History Alcohol Intake: Never Domestic Abuse History Do You Feel Safe at Home: Yes History of Present Illness HPI Narrative Lulu Zurita, a 44-year-old female, presents for evaluation of menorrhagia. She reports a history of heavy and irregular periods with significant pain, which have been ongoing for years but have worsened in recent months. The patient states that her gynecological issues became more pronounced after her in 2018. Ms. Zurita describes her periods as very heavy with lots of pain. She has experienced these symptoms for an extended period, noting that it's been a long time since [facility]. The patient's condition has led to significant anemia, requiring two recent blood transfusions. She was recently seen in the emergency room for chest pain, where cardiac conditions were ruled out, but her hemoglobin was noted to be critically low at 7.2. The patient reports a history of four pregnancies and four deliveries ( 4, para 4), with one . Her last menstrual period was on April 30, 2025. She is currently taking iron supplements for long-term anemia. Ms. Zurita mentions having undergone an ultrasound and endometrial biopsy at [facility], though she does not recall specific findings. She notes that there was not enough tissue obtained during the endometrial biopsy. Ms. Zurita's menstrual issues have significantly impacted her health, necessitating multiple medical interventions including emergency room visits and blood transfusions. She denies any recent weight changes or changes in appetite. ROS: General: Positive for weight changes. Cardiovascular: Positive for chest pain (recent). Genitourinary: Positive for heavy menstrual bleeding, irregular periods, and pelvic pain. Diagnostic Test Results and Labs: - Hemoglobin: 7.2 g/dL (low) - Endometrial biopsy: Insufficient tissue for diagnosis - Ultrasound: Fibroids noted (multiple) Exam General General Appearance: alert, in no apparent distress and healthy appearing Head Head exam: atraumatic Neck Neck exam: Present normal inspection and trachea midline Chest Chest inspection: Present normal inspection and symmetric chest wall rise External exam: Present normal external exam; Absent tenderness Neuro Neurological exam: Present oriented X3 Psych Psychiatric exam: Present normal affect and normal mood Office Procedures OB Clinic LOC & Office Proc's Nursing/Assessment Patient Status: Established Patient OB Clinic Nursing Assessment: Medication Reconciliation, Update PMH in EMR and Vital Signs OB Clinic Coordination of Care: Education Complex Pt/Fam, Consent,records obtained, informed consent, Lab and Imaging orders, Results/Orders obtained and Staff clarify orders Established Patient Charge Established Patient Point Assignment: 85 Established Patient Point Charge: EP Level 3 (80-115) Assessment & Plan Diagnosis / Problem List (1) Menorrhagia: Status: Acute (2) ABLA (acute blood loss anemia): Status: Acute Plan Menorrhagia and Irregular Menstruation: - Heavy and irregular periods with significant pain for several months - Symptoms worsening since in 2018 - Multiple fibroids revealed in previous ultrasound (exact sizes unknown) - Endometrial biopsy attempted but yielded insufficient tissue - Uterine fibroids presumed cause of menorrhagia and irregular bleeding - Chronic blood loss resulting in significant anemia (Hgb 7.2) - Multiple blood transfusions required Plan: - Obtain previous imaging records from [facility] - Order new pelvic ultrasound for comparison and current evaluation - Order hormone panel - Initiate process for hysterectomy - Submit request to insurance for approval - Plan for open abdominal hysterectomy with cervix removal and ovarian prese rvation - Discuss risks, benefits, and alternatives of surgery with patient - Consider preoperative blood transfusion to optimize hemoglobin levels - Schedule follow-up appointment to review imaging results, select surgery date, and discuss further details of the procedure Anemia: - Significant anemia with hemoglobin of 7.2 - Likely secondary to chronic blood loss from menorrhagia - Two recent blood transfusions required - Currently taking iron supplementation for long-term anemia management - Under care of command and control officer at cancer treatment center Plan: - Continue current iron supplementation - Obtain and review records from command and control officer - Consider preoperative blood transfusion to optimize hemoglobin levels before surgery - Reassess need for hematology follow-up post-hysterectomy
[2025-05-08 14:33] VITALS: BP 110/71; PULSE 81; RESP 17; TEMP 36.8; O2SAT 97; BMI 30.9
== END 2025-05-08 15:05 | disposition home or self-care (01) ==
LOC: HODSOBC 14:07
PROVIDERS: Supervising Provider Obstetrics & Gynecology; Visit Provider Obstetrics & Gynecology
DX: N92.0 Excessive and frequent menstruation with regular cycle (principal); D62 Acute posthemorrhagic anemia
CPT/HCPCS: 99213; G0463

== ENCOUNTER → 2025-05-21 | Outpatient (CLI) | payer MEDICAID, SELFPAY ==
--- NOTE | 2025-05-21 13:00 | XR_ITS ---
Examination: Pelvic ultrasound, transabdominal, complete Technique: Transabdominal ultrasound of the pelvis performed using grayscale imaging Date and time of exam: May 21, 2025 1201 hours INDICATIONS: Abnormal vaginal bleeding beginning several years ago FINDINGS: Uterus 13.9 cm endometrial stripe 12 mm No uterine mass or intrauterine gestation Right ovary 3.7 cm arterial flow small follicle Left ovary 3.0 cm arterial flow IMPRESSION: No uterine mass or intrauterine gestation
== END | disposition home or self-care (01) ==
LOC: CDIM 11:40
PROVIDERS: Referring Provider Obstetrics & Gynecology; Visit Provider Obstetrics & Gynecology
DX: N93.9 Abnormal uterine and vaginal bleeding, unspecified (principal)
CPT/HCPCS: 76856

== ENCOUNTER 2025-06-06 14:58 | Outpatient (AMB) | payer MEDICAID, SELFPAY ==
[2025-06-06 15:14] VITALS: BP 112/71; PULSE 78; RESP 14; TEMP 36.9; O2SAT 97; BMI 30.4
--- NOTE | 2025-06-06 15:14 | AMB.GYNCLNOT ---
Vital Signs 06/06/25 15:14 Height 1.57 m Height Method Stated Weight 74.899 kg Weight Measurement Method Standing Scale BMI 30.4 BP 112/71 Blood Pressure Source Automatic Cuff Blood Pressure Location Left Upper Arm Position Sitting Respiration 14 Pulse 78 Pulse Source Monitor Temp 98.4 F Temp Source Oral Pulse Oximetry (%) 97 Oxygen Delivery Method Room Air Allergies/Home Meds Allergies & Medications Allergies No Known Allergies Allergy (Verified 06/06/25 15:16) Medication Reconciliation multivitamin with iron (Daily Vitamin with Iron tablet) 1 tab PO QDAY 05/08/25 [History Confirmed 06/06/25] Intake Visit Data Collection New Patient or Established: Established Patient (seen at [facility] within 3 years) Reason for Visit:: DISCUSS LAB RESULTS Seen by Clinical Staff ONLY (RN/MA): No Corporate Travel Counselor Required: No Do You Feel Safe at Home: Yes Authorities Contacted: N/A PCP or OBGYN visit in last 3 months: Yes Hx Now: No Are you currently on any form of Control: No Pain Present Currently: No Pain Scale Used: Noe-King/Numerical Pain scale:: 0 Smoking Status Smoking Status: Never smoker 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 1. Little interest or pleasure in doing things: not at all 2. Feeling down, depressed, or hopeless: not at all Total score: 0 PHQ-9 3. Trouble falling or staying asleep, or sleeping too much: Not at all 4. Feeling tired or having little energy: Not at all 5. Poor appetite or overeating: Not at all 6. Feeling bad about yourself - or that you are a failure or have let yourself or your family down: Not at all 7. Trouble concentrating on things, such as reading the newspaper or watching television: Not at all 8. Moving or speaking so slowly that other people could have noticed? - Or the opposite - being so fidgety or restless that you have been moving around a lot more than usual: not at all 9. Thoughts that you would be better off or of hurting yourself in some way: Not at all Source: Developed by Drs. Kentrell Okeefe, Irene Orr, Saeed Ge and colleagues, with an educational kiara from [employer]. Depression screen completed yes Social History Living Situation History Lives With: Family Housing: House Tobacco History Smoking Status: Never smoker Second Hand Smoke Exposure: No Alcohol History Alcohol Intake: Never Domestic Abuse History Do You Feel Safe at Home: Yes History of Present Illness HPI Narrative Patient reports continued heavy menstrual bleeding, which has resulted in significant anemia. Her hemoglobin level was noted to be 7.2 g/dL on recent bloodwork performed by Dr. Roque. The bleeding has been persistent, affecting her overall health status. She has a pending authorization for a total abdominal hysterectomy. She is a female patient with a history of dysfunctional uterine bleeding and anemia. A pelvic ultrasound performed on May 21, 2025, showed a slightly enlarged uterus measuring 13.9 centimeters, with an endometrial stripe of 12 millimeters. No uterine masses or intrauterine gestation were identified. She has been diagnosed with dysfunctional uterine bleeding, described as a functional problem where the hormones responsible for regulating menstrual cycles are not working properly. The condition has been severe enough to warrant consideration of surgical intervention. Medical history includes anemia and dysfunctional uterine bleeding. Surgical history includes a past section. Patient reports ongoing vaginal bleeding. Diagnostic Test Results and Labs: - Pelvic ultrasound (05-21-2025): Uterus: 13.9 cm Endometrial stripe: 12 mm No uterine mass or intrauterine gestation Right ovary: 3.7 cm Left ovary: 3.0 cm Arterial flow present on both sides - Hemoglobin (Date not specified, noted as recently ): 7.2 g/dL Exam General General Appearance: alert, in no apparent distress and healthy appearing Head Head exam: atraumatic Neck Neck exam: Present normal inspection and trachea midline Chest Chest inspection: Present normal inspection and symmetric chest wall rise External exam: Present normal external exam; Absent tenderness Neuro Neurological exam: Present oriented X3 Psych Psychiatric exam: Present normal affect and normal mood Office Procedures OB Clinic LOC & Office Proc's Nursing/Assessment Patient Status: Established Patient OB Clinic Nursing Assessment: Medication Reconciliation, Update PMH in EMR and Vital Signs OB Clinic Coordination of Care: Complex Care and Chronic Disease 1-5, Consent,records obtained, informed consent, Education Simp Pt/Fam, Lab and Imaging orders, Results/Orders obtained and Staff clarify orders Established Patient Charge Established Patient Point Assignment: 105 Established Patient Point Charge: EP Level 3 (80-115) Assessment & Plan Diagnosis / Problem List (1) Menorrhagia: Status: Acute (2) ABLA (acute blood loss anemia): Status: Acute Plan Dysfunctional Uterine Bleeding: - Uterus measuring 13.9 cm with endometrial stripe of 12 mm on recent pelvic ultrasound (05/21/2025). - No uterine mass or intrauterine gestation identified. - Ovaries measure 3.7 cm (right) and 3.0 cm (left) with arterial flow on both sides. - Hemoglobin of 7.2, indicating significant anemia. - Enlarged uterus (13 cm) noted to be common in women over 40 years old. - No fibroadenomas or other abnormalities detected. - Bleeding assessed as dysfunctional uterine bleeding. Plan: - Proceed with total abdominal hysterectomy once insurance approval is obtained. ? Incision through previous scar. ? Remove uterus and cervix. ? Preserve ovaries to maintain estrogen production. - Consider admission one night before surgery for blood transfusion. - Await insurance approval from [employer] (expected within 1-2 weeks). - Follow up with patient once approval is received to schedule surgery. Anemia: - Significant anemia with hemoglobin of 7.2. - Poses potential risks for surgery and anesthesia. Plan: - Consider pre-operative blood transfusion to correct anemia. - Reassess hemoglobin levels prior to surgery. - Anticipate improvement in anemia following hysterectomy.
== END 2025-06-06 15:24 | disposition home or self-care (01) ==
LOC: HODSOBC 14:58
PROVIDERS: PCP Obstetrics & Gynecology; Referring Provider Obstetrics & Gynecology; Supervising Provider Obstetrics & Gynecology; Visit Provider Obstetrics & Gynecology
DX: N92.0 Excessive and frequent menstruation with regular cycle (principal); D62 Acute posthemorrhagic anemia; N93.8 Other specified abnormal uterine and vaginal bleeding
CPT/HCPCS: 99213; G0463

== ENCOUNTER 2025-07-16 08:54 | Outpatient (AMB) | payer MEDICAID, SELFPAY ==
[2025-07-16 09:28] VITALS: BP 105/64; PULSE 66; RESP 18; TEMP 36.2; O2SAT 98; BMI 30.7
--- NOTE | 2025-07-16 09:28 | GYNCLNT_ITS ---
Vital Signs 07/16/25 09:28 Height 1.57 m Height Method Stated Weight 75.75 kg Weight Measurement Method Standing Scale BMI 30.7 BP 105/64 Blood Pressure Source Automatic Cuff Blood Pressure Location Left Upper Arm Position Sitting Respiration 18 Pulse 66 Pulse Source Monitor Temp 97.2 F Temp Source Oral Pulse Oximetry (%) 98 Oxygen Delivery Method Room Air Allergies/Home Meds Allergies & Medications Allergies No Known Allergies Allergy (Verified 07/16/25 09:29) Medication Reconciliation ferrous sulfate 325 mg (65 mg iron) tablet (FeroSul) 325 mg PO TID 07/16/25 [History Confirmed 07/16/25] Intake Visit Data Collection New Patient or Established: Established Patient (seen at [facility] within 3 years) Reason for Visit:: PRE-OP Seen by Clinical Staff ONLY (RN/MA): No Electrical Designer Required: No Do You Feel Safe at Home: Yes Authorities Contacted: N/A PCP or OBGYN visit in last 3 months: Yes Hx Now: No Are you currently on any form of Control: No Pain Present Currently: No Pain Scale Used: Noe-King/Numerical Pain scale:: 0 Smoking Status Smoking Status: Never smoker 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 regularity: regular Flow: normal Monthly: Yes How many days does period last: 5 Age at menarche: 10 Menopausal: No Currently sexually active: Yes 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 1. Little interest or pleasure in doing things: not at all 2. Feeling down, depressed, or hopeless: not at all Total score: 0 PHQ-9 3. Trouble falling or staying asleep, or sleeping too much: Not at all 4. Feeling tired or having little energy: Not at all 5. Poor appetite or overeating: Not at all 6. Feeling bad about yourself - or that you are a failure or have let yourself or your family down: Not at all 7. Trouble concentrating on things, such as reading the newspaper or watching television: Not at all 8. Moving or speaking so slowly that other people could have noticed? - Or the opposite - being so fidgety or restless that you have been moving around a lot more than usual: not at all 9. Thoughts that you would be better off or of hurting yourself in some way: Not at all Total score: 0 If you checked off any problems, how difficult have these problems made it for you to do your work, take care of things at home, or get along with other people?: not difficult at all Source: Developed by Drs. Kentrell Okeefe, Irene Orr, Saeed Ge and colleagues, with an educational kiara from [employer]. Depression screen completed yes Social History Living Situation History Lives With: Family Housing: Apartment Tobacco History Smoking Status: Never smoker Second Hand Smoke Exposure: No Alcohol History Alcohol Intake: Never Domestic Abuse History Do You Feel Safe at Home: Yes History of Present Illness HPI Narrative Lulu Zurita presents with chronic anemia from menorrhagia, scheduled for total abdominal hysterectomy tomorrow. She has been experiencing ongoing bleeding, necessitating blood transfusions. The patient appears pale and tired due to her condition. The chronic nature of her menorrhagia has significantly impacted her quality of life, requiring frequent medical interventions. Her preoperative hemoglobin level is 7.9, indicating severe anemia. The patient's condition has affected her ability to work. She expresses apprehension about the upcoming surgery, suggesting emotional distress related to her condition and the impending procedure. She is a 44-year-old female. Her partner, Jn Zurita, will be present during the surgery, indicating family support. ROS: General: Positive for fatigue. 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 - Hemoglobin (07-16-2025): 7.9 g/dL (low) Exam General General Appearance: alert, in no apparent distress and healthy appearing Head Head exam: atraumatic Neck Neck exam: Present normal inspection and trachea midline Chest Chest inspection: Present normal inspection and symmetric chest wall rise External exam: Present normal external exam; Absent tenderness Neuro Neurological exam: Present oriented X3 Psych Psychiatric exam: Present normal affect and normal mood Office Procedures OB Clinic LOC & Office Proc's Nursing/Assessment Patient Status: Established Patient OB Clinic Nursing Assessment: Medication Reconciliation, Update PMH in EMR and Vital Signs OB Clinic Coordination of Care: Education Complex Pt/Fam, Consent,records obtained, informed consent, Lab and Imaging orders, Results/Orders obtained and Staff clarify orders Established Patient Charge Established Patient Point Assignment: 85 Established Patient Point Charge: Level 3 (80-115) Assessment & Plan Diagnosis / Problem List (1) Menorrhagia: Status: Acute (2) ABLA (acute blood loss anemia): Status: Acute Plan Chronic Anemia Secondary to Menorrhagia: - Severe anemia with preoperative hemoglobin level of 7.9 g/dL. - Patient appears pale and tired, consistent with symptomatic anemia. - Scheduled for total abdominal hysterectomy with expected intraoperative blood loss of approximately one unit. Plan: - Transfuse 2 units of packed red blood cells (PRBCs) preoperatively: ? To be administered upon patient's arrival at 5:30 AM. - Order 2 additional units of PRBCs to be on hold in the operating room. - Administer medications intraoperatively to minimize blood loss. - Proceed with total abdominal hysterectomy as scheduled: ? Surgery start time: 7:30 AM ? Estimated completion time: 9:00 AM - Postoperative care: ? Monitor hemoglobin levels ? Transfuse additional blood products as needed - Provide work note for patient's for 2-3 days off work.
== END 2025-07-16 09:41 | disposition home or self-care (01) ==
LOC: HODSOBC 08:54
PROVIDERS: Supervising Provider Obstetrics & Gynecology; Visit Provider Obstetrics & Gynecology
DX: N92.0 Excessive and frequent menstruation with regular cycle (principal); D50.0 Iron deficiency anemia secondary to blood loss (chronic)
CPT/HCPCS: 99213; G0463

== ENCOUNTER 2025-07-17 05:53 | Inpatient (IN) | payer MEDICAID, SELFPAY ==
[2025-07-16 08:17] VITALS: BMI 30.6
[2025-07-16 09:11] LABS: Basophils # (Auto) 0.0 Thou/mm3 (0.0-0.2); Basophils % (Auto) 1 % (0-2.5); Eosinophils # (Auto) 0.1 Thou/mm3 (0.0-0.5); Eosinophils % (Auto) 1 % (0-10); HCG,Qualitative Serum Negative; Hematocrit 27.7 % (36.0-46.0); Immature Granulocytes Auto 0.02 Thou/mm3 (0.00-0.00); Lymphocytes # (Auto) 1.7 Thou/mm3 (1.0-4.8); Lymphocytes % (Auto) 27 % (10-50); Mean Corpuscular HGB Conc 28.5 g/dl (31.0-37.0); Mean Corpuscular Hemoglobin 18.6 pg (25.0-35.0); Mean Corpuscular Volume 65 fL (80-100); Monocytes # (Auto) 0.6 Thou/mm3 (0.0-0.8); Monocytes % (Auto) 10 % (0-12); Neutrophils # (Auto) 3.8 Thou/mm3 (1.8-7.7); Neutrophils % (Auto) 61 % (37-80); Nucleated Red Blood Cell # 0.00 Thou/mm3 (0.00-0.00); Nucleated Red Blood Cell % 0 /100 WBC (0); Platelet Count 344 Thou/mm3 (140-440); RDW Standard Deviation 44.1 fL (36.4-46.3); Red Blood Count 4.24 Miln/mm3 (4.00-5.20); White Blood Count 6.2 Thou/mm3 (3.6-11.0)
[2025-07-16 09:14] LABS: Hemoglobin 7.9 g/dL (12.0-16.0)
[2025-07-16 09:30] LABS: Alanine Aminotransferase 8 U/L (10-49); Albumin, Serum 4.2 gm/dL (3.5-5.0); Albumin/Globulin Ratio 1.3 (1.2-2.2); Alkaline Phosphatase 104 U/L (46-116); Anion Gap 9 (7-16); Aspartate Amino Transferase 13 U/L (0-34); BUN/Creatinine Ratio 17 Ratio (12-20); Bilirubin,Total 0.4 mg/dL (0.3-1.2); Blood Urea Nitrogen 15 mg/dL (9-23); Calcium 9.8 mg/dL (8.3-10.6); Calcium (Corrected) 9.8 mg/dL (8.5-10.1); Carbon Dioxide 24.3 mMol/L (20.0-31.0); Chloride 107 mMol/L (98-107); Creatinine (Component) 0.9 mg/dL (0.6-1.3); Estimated Creatinine Clearance 74.5 mL/min (>60); Globulin 3.3 gm/dL (2.3-3.5); Glucose 92 mg/dL (74-106); Osmolality,Calculated 280 (275-295); Potassium 4.1 mMol/L (3.4-5.1); Sodium 140 mMol/L (136-145); Total Protein 7.5 gm/dL (5.7-8.2); eGFR > 60 See Note
--- NOTE | 2025-07-16 14:11 | SUR.PREOP ---
Pt notified of blood transfusions on arrival to surgery tomorrow.
[2025-07-17] VITALS (28 sets, daily range): BP systolic 98–126; BP diastolic 54–78; PULSE 54–80; RESP 12–98; TEMP 36.2–37.1; O2SAT 95–100; BMI 30.4
--- NOTE | 2025-07-17 06:00 | SUR.PREOP ---
Consent for blood transfusion signed by patient and in chart. Patient guide for blood transfusion provided and reviewed with patient. No questions at this time. Educated on signs and symptoms of allergic and hemolytic reactions. Agrees to proceed with blood transfusion.
--- NOTE | 2025-07-17 09:38 | ESOP_ITS ---
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 Identity was confirmed using two patient identifiers. General anesthesia was administered and the patient was positioned in the supine position. The abdomen and perineum were prepped and draped in the usual sterile fashion. A Michaud catheter was inserted for continuous drainage. A surgical timeout was performed. A Pfannenstiel skin incision was made and carried through the subcutaneous tissue. The fascia was identified and incised transversely. Rectus fascia was dissected off the underlying rectus muscles both superiorly and inferiorly. The rectus muscles were noted to be oozy and were cauterized as needed using electrosurgery. The muscles were in the midline and the peritoneum was entered bluntly. An John O-ring retractor was placed. Upon entry, significant adhesions were encountered involving the bladder and anterior surface of the uterus. These were carefully taken down using a combination of sharp dissection and electrocautery. Additional dense adhesions were present in the lower adnexa and cardinal ligament bilaterally, which were also lysed using a combination of sharp and electrodissection to expose the operative field. With the uterus under traction, dissection was started on the right. The fallopian tube was partially resected, and the utero-ovarian ligament and round ligament were divided using electrosurgical energy. The broad ligament was opened anteriorly and posteriorly. A bladder flap was developed, and the posterior dissection was carried down to the uterosacral ligaments. The uterine artery was skeletonized and divided. The same procedure was performed on the left side. Once the dissection reached the level of the cervix, a pair of John clamps was placed across the cervix and the uterus was amputated and removed, along with partial bilateral salpingectomy specimens, and sent for pathological examination. The vaginal angles were tagged with 0 Vicryl sutures. The vaginal cuff was juan carlos sed with 0 Vicryl in a running locked fashion, and the angles were tied together to reinforce the uterosacral ligaments. The cuff was copiously irrigated and inspected. Hemostasis was noted to be adequate. All instruments were withdrawn, the John retractor was removed, and the bowel was returned to the abdomen. The abdominal cavity was irrigated, and hemostasis was confirmed. The peritoneum was not closed. The rectus muscles were reapproximated as needed. The fascia was closed using 0 Vicryl in a running fashion. The subcutaneous fat was closed with 2-0 Vicryl. The skin was closed using 4-0 Monocryl in a subcuticular fashion, and a Dermabond Prineo dressing was applied. The patient was undraped, anesthesia was reversed, and she was transferred to recovery in a stable and awake condition. She tolerated the procedure well. All instrument, sponge, and lap counts were correct ?2. Estimated blood loss (ml): 150 Complications: none Surgical staff Operation Date: 07/17/25 07:30 Case Staff RECHARGER: Brandi Hwang RN First Assistant: Hrelinda Flores Diagnosis Discharge Diagnosis (1) Menorrhagia: Status: Acute (2) ABLA (acute blood loss anemia): Status: Acute Problem List Completed Was Problem List Reviewed/Reconciled?: Yes
--- NOTE | 2025-07-17 09:55 | SUR.PHASEI ---
pt received from OR in recovery bay 5. pt obtunded breathing unlabored on oxymask 8l, oral airway in place. v/s stable. pt dressing to abd cdi. report received from Bridgette CHIU and Brandi MUÑIZ.
[2025-07-17] MEDS: HYDROmorphone INJ 2 MG/ML VIAL 0.5 MG IVP (10:10)
[2025-07-17] MEDS: HYDROmorphone 1 MG/ML PCA SYRINGE 30ML PCA (10:23)
[2025-07-17] MEDS: SODIUM CHLORIDE 0.9% 1000 ML 1,000 ML 200 ML IV ×3 (10:37→21:05)
[2025-07-17 11:47] LABS: Basophils # (Auto) 0.0 Thou/mm3 (0.0-0.2); Basophils % (Auto) 0 % (0-2.5); Eosinophils # (Auto) 0.0 Thou/mm3 (0.0-0.5); Eosinophils % (Auto) 0 % (0-10); Hematocrit 29.4 % (36.0-46.0); Hemoglobin 9.0 g/dL (12.0-16.0); Immature Granulocytes Auto 0.12 Thou/mm3 (0.00-0.00); Lymphocytes # (Auto) 0.8 Thou/mm3 (1.0-4.8); Lymphocytes % (Auto) 5 % (10-50); Mean Corpuscular HGB Conc 30.6 g/dl (31.0-37.0); Mean Corpuscular Hemoglobin 21.4 pg (25.0-35.0); Mean Corpuscular Volume 70 fL (80-100); Monocytes # (Auto) 0.3 Thou/mm3 (0.0-0.8); Monocytes % (Auto) 2 % (0-12); Neutrophils # (Auto) 15.1 Thou/mm3 (1.8-7.7); Neutrophils % (Auto) 92 % (37-80); Nucleated Red Blood Cell # 0.00 Thou/mm3 (0.00-0.00); Nucleated Red Blood Cell % 0 /100 WBC (0); Platelet Count 281 Thou/mm3 (140-440); RDW Standard Deviation 54.1 fL (36.4-46.3); Red Blood Count 4.21 Miln/mm3 (4.00-5.20); White Blood Count 16.3 Thou/mm3 (3.6-11.0)
[2025-07-17] MEDS: Milk Of Magnesia Susp 30 ML UDC PO (12:07)
--- NOTE | 2025-07-17 12:50 | SUR.PHASEI ---
1215: pt lying in bed with eyes closed, breathing unlabored, dressing to abdomen clean, dry, and intact, VS stable, report from Jarvis CHIU 1250: report to Jarvis CHIU
[2025-07-17] MEDS: ONDANSETRON INJ 2 MG/ML INJ 2 ML 4 MG IVP (14:00)
--- NOTE | 2025-07-17 15:30 | SUR.PHASEI ---
pt awake and alert, breathing unlabored on nc 2l. v/s stable. pt dressing to abd cdi. abd binder in place. report called to Lisa CHIU. pt will be transferred to room at this time.
[2025-07-17] MEDS: ACETAMINOPHEN IVPB 1,000 MG/100 ML VIAL 250 MG IV (17:13)
[2025-07-17] MEDS: ONDANSETRON INJ 2 MG/ML INJ 2 ML 4 MG IV (18:06)
[2025-07-17] MEDS: TRANEXAMIC ACID 1,000 MG IVPB 1,000 MG/100 ML BAG 200 MG IV (23:45)
[2025-07-18] VITALS (23 sets, daily range): BP systolic 93–109; BP diastolic 62–70; PULSE 57–94; RESP 16–97; TEMP 36.1–36.7; O2SAT 93–98
[2025-07-18] MEDS: ACETAMINOPHEN IVPB 1,000 MG/100 ML VIAL 250 MG IV ×2 (00:32→05:56)
[2025-07-18] MEDS: SODIUM CHLORIDE 0.9% 1000 ML 1,000 ML 200 ML IV (02:27)
[2025-07-18 06:28] LABS: Basophils # (Auto) 0.0 Thou/mm3 (0.0-0.2); Basophils % (Auto) 0 % (0-2.5); Eosinophils # (Auto) 0.0 Thou/mm3 (0.0-0.5); Eosinophils % (Auto) 0 % (0-10); Hematocrit 26.3 % (36.0-46.0); Immature Granulocytes Auto 0.05 Thou/mm3 (0.00-0.00); Lymphocytes # (Auto) 1.1 Thou/mm3 (1.0-4.8); Lymphocytes % (Auto) 10 % (10-50); Mean Corpuscular HGB Conc 30.4 g/dl (31.0-37.0); Mean Corpuscular Hemoglobin 21.1 pg (25.0-35.0); Mean Corpuscular Volume 69 fL (80-100); Monocytes # (Auto) 1.1 Thou/mm3 (0.0-0.8); Monocytes % (Auto) 10 % (0-12); Neutrophils # (Auto) 9.0 Thou/mm3 (1.8-7.7); Neutrophils % (Auto) 80 % (37-80); Nucleated Red Blood Cell # 0.00 Thou/mm3 (0.00-0.00); Nucleated Red Blood Cell % 0 /100 WBC (0); Platelet Count 204 Thou/mm3 (140-440); RDW Standard Deviation 53.4 fL (36.4-46.3); Red Blood Count 3.79 Miln/mm3 (4.00-5.20); White Blood Count 11.3 Thou/mm3 (3.6-11.0)
[2025-07-18 06:29] LABS: Hemoglobin 8.0 g/dL (12.0-16.0)
[2025-07-18 06:52] LABS: Anion Gap 8 (7-16); BUN/Creatinine Ratio 15 Ratio (12-20); Blood Urea Nitrogen 12 mg/dL (9-23); Calcium 8.4 mg/dL (8.3-10.6); Carbon Dioxide 20.0 mMol/L (20.0-31.0); Chloride 111 mMol/L (98-107); Creatinine (Component) 0.8 mg/dL (0.6-1.3); Estimated Creatinine Clearance 81.4 mL/min (>60); Glucose 84 mg/dL (74-106); Osmolality,Calculated 276 (275-295); Potassium 4.1 mMol/L (3.4-5.1); Sodium 139 mMol/L (136-145); eGFR > 60 See Note
--- NOTE | 2025-07-18 07:46 | PD.GYNPROG ---
Documentation for date of: 07/18/25 QUALITY CONTROL ASSISTANT Subjective Subjective Interval history: Patient doing well this morning. Pain is adequately controlled on the current regimen. No incisional complaints, no chest pain, shortness of breath, breathing difficulties. Ambulating, tolerating p.o., Adequate UOP Hemoglobin drop is consistent with patient's surgical blood loss, redistribution from severe underlying anemia and previous blood transfusion Exam Vital Signs Temp Pulse Resp BP Pulse Ox O2 Del Method O2 Flow Rate 97.3 F 58 L 16 93/62 96 Nasal Cannula 2 07/18/25 04:00 07/18/25 04:00 07/18/25 04:00 07/18/25 04:00 07/18/25 04:00 07/18/25 00:00 07/18/25 00:00 Constitutional Constitutional: no acute distress Routine HEENT Exam Head: Present normocephalic and atraumatic Eye: Present EOMI and PERRL ENT: Present mucous membranes moist Routine Neck Exam Neck: Present supple and trachea midline Routine Respiratory Exam Respiratory: Present chest non-tender, lungs clear, normal breath sounds and no resp distress Routine Cardiovascular Exam Cardiovascular: Present RRR Routine Abdominal Exam Abdominal: Present soft and normoactive bowel sounds Routine Extremities Exam Extremities: Present full ROM Routine Skin Exam Skin: Present intact and dry Routine Neurological Exam Neurological: Present alert, oriented X3 and CN II-XII intact Routine Psychiatric Exam Psychiatric: Present normal affect and normal thought process Urinary Catheter Management Cath placed during this visit: no QUALITY CONTROL ASSISTANT - PN: Obj Data Labs 07/18/25 05:35 07/18/25 05:35 Labs: Laboratory Results - last 24 hr 07/16/25 07/17/25 07/18/25 08:36 11:35 05:35 WBC 16.3 H D 11.3 H D RBC 4.21 3.79 L Hgb 9.0 L 8.0 L Hct 29.4 L 26.3 L MCV 70 L 69 L MCH 21.4 L 21.1 L MCHC 30.6 L 30.4 L RDW Std Deviation 54.1 H 53.4 H Plt Count 281 D 204 D Neut % (Auto) 92 H 80 Lymph % (Auto) 5 L 10 Navarro % (Auto) 2 10 Eos % (Auto) 0 0 Baso % (Auto) 0 0 Neut # (Auto) 15.1 H 9.0 H Lymph # (Auto) 0.8 L 1.1 Navarro # (Auto) 0.3 1.1 H Eos # (Auto) 0.0 0.0 Baso # (Auto) 0.0 0.0 Immature Gran # (Auto) 0.12 H 0.05 H Absolute Nucleated RBC 0.00 0.00 Immature Gran % 1 H 0 Nucleated RBC % 0 0 Sodium 139 Potassium 4.1 Chloride 111 H Carbon Dioxide 20.0 Anion Gap 8 BUN 12 Creatinine 0.8 Estim Creat Clear Calc 81.4 eGFR > 60 BUN/Creatinine Ratio 15 Glucose 84 Calculated Osmolality 276 Calcium 8.4 Blood Type O Positive Antibody Screen NEGATIVE Crossmatch See Detail Blood Bank Wristband ID Yes QUALITY CONTROL ASSISTANT - A/P Assessment and plan (1) Menorrhagia: Status: Acute (2) ABLA (acute blood loss anemia): Status: Acute Assessment and plan: POD#1 1. Continue routine post operative care 2. Transition to PO meds. 3. Encourage to ambulate 4. Transfused 2 units of packed RBCs in preop, will transfuse 2 more units of PRBC and 1 FFP now. 5. Home care instructions reviewed Postoperative Procedures: Procedures Operation Date: 07/17/25 07:30 Actual Procedure Side Surgeon p Hysterectomy, Abdominal with bilateral salpingectomy Keaton Tariq MD Time Spent With Patient Time: Total time spent is greater than 50% in coordination of care (as documented) at patient's floor/unit and/or counseling patient: Time with patient: less than 15 minutes
[2025-07-18] MEDS: DOCUSATE SOD 100 MG CAPSULE PO (09:31)
[2025-07-18] MEDS: KETOROLAC INJ 30 MG/ML VIAL IVP ×3 (09:31→18:18)
[2025-07-18] MEDS: SODIUM CHLORIDE 0.9% 1000 ML 1,000 ML 75 ML IV (09:31)
[2025-07-18] MEDS: TRANEXAMIC ACID 1,000 MG IVPB 1,000 MG/100 ML BAG 200 MG IV (09:33)
--- NOTE | 2025-07-18 10:42 | PC.NURSE ---
Verified with MD ram over the phone in regards to blood products administration per continue with administrating 1 u of plasma and 2prbcs. Pt made aware and agrees with the plan consent signed.
--- NOTE | 2025-07-18 12:03 | PC.SS ---
Lulu Zurita is a 44-year-old female admitted to [facility] for RAE [id number]. SS conducted bedside contact with the patient to complete initial assessment and to discuss discharge planning. Role and reason explained. Patient confirmed demographic information. Patient identifies Jn Zurita [phone] as her surrogate decision maker. Pt states she is able to complete all ADL?s independently. No need for any source of DME. Pts PCP Dr. Friedman. Pharmacy of choice is [facility]. Discharge options discussed and the pt wishes to return home.? Family will provide transportation upon DC. No further intervention required at this time, social worker masters would be available to address any further concerns. DC Plan: Home Contact: Ankush Ragsdale Address: Confirmed on face sheet PCP: Idalia
[2025-07-18] MEDS: LACTULOSE SYRUP 20 GM/30 ML UDC 10 GM PO ×2 (13:06→22:21)
[2025-07-18] MEDS: ONDANSETRON INJ 2 MG/ML INJ 2 ML 4 MG IV (18:17)
[2025-07-18] MEDS: SODIUM CHLORIDE 0.9% 1000 ML 1,000 ML 50 ML IV (18:19)
[2025-07-19] VITALS (11 sets, daily range): BP systolic 108–152; BP diastolic 68–86; PULSE 41–73; RESP 16–95; TEMP 36.1–37.1; O2SAT 94–99; BMI 30.4
[2025-07-19] MEDS: KETOROLAC INJ 30 MG/ML VIAL IVP ×4 (00:19→21:01)
[2025-07-19 05:13] LABS: Basophils # (Auto) 0.0 Thou/mm3 (0.0-0.2); Basophils % (Auto) 0 % (0-2.5); Eosinophils # (Auto) 0.0 Thou/mm3 (0.0-0.5); Eosinophils % (Auto) 0 % (0-10); Hematocrit 35.1 % (36.0-46.0); Hemoglobin 10.7 g/dL (12.0-16.0); Immature Granulocytes Auto 0.06 Thou/mm3 (0.00-0.00); Lymphocytes # (Auto) 1.4 Thou/mm3 (1.0-4.8); Lymphocytes % (Auto) 14 % (10-50); Mean Corpuscular HGB Conc 30.5 g/dl (31.0-37.0); Mean Corpuscular Hemoglobin 23.2 pg (25.0-35.0); Mean Corpuscular Volume 76 fL (80-100); Monocytes # (Auto) 0.8 Thou/mm3 (0.0-0.8); Monocytes % (Auto) 8 % (0-12); Neutrophils # (Auto) 8.1 Thou/mm3 (1.8-7.7); Neutrophils % (Auto) 77 % (37-80); Nucleated Red Blood Cell # 0.00 Thou/mm3 (0.00-0.00); Nucleated Red Blood Cell % 0 /100 WBC (0); Platelet Count 214 Thou/mm3 (140-440); RDW Standard Deviation 66.9 fL (36.4-46.3); Red Blood Count 4.62 Miln/mm3 (4.00-5.20); White Blood Count 10.4 Thou/mm3 (3.6-11.0)
[2025-07-19] MEDS: LACTULOSE SYRUP 20 GM/30 ML UDC 10 GM PO (05:59)
[2025-07-19] MEDS: DOCUSATE SOD 100 MG CAPSULE PO (08:39)
[2025-07-19] MEDS: HYDROcodone/APAP 5/325 TABLET 1 TAB PO (09:52)
--- NOTE | 2025-07-19 10:44 | ESPR_ITS ---
Documentation for date of: 07/19/25 GENERAL OPHTHALMOLOGIST Subjective Subjective Interval history: Patient doing well this morning. Pain is adequately controlled on the current regimen. No incisional complaints, no chest pain, shortness of breath, breathing difficulties. Ambulating, tolerating p.o., passing flatus and voiding without difficulty. Exam Vital Signs Temp Pulse Resp BP Pulse Ox O2 Del Method O2 Flow Rate 97.5 F 67 16 108/73 96 Room Air 0 07/19/25 08:00 07/19/25 08:00 07/19/25 08:00 07/19/25 08:00 07/19/25 08:00 07/19/25 08:00 07/18/25 19:35 Constitutional Constitutional: no acute distress Routine HEENT Exam Head: Present normocephalic and atraumatic Eye: Present EOMI and PERRL ENT: Present mucous membranes moist Routine Neck Exam Neck: Present supple and trachea midline Routine Respiratory Exam Respiratory: Present chest non-tender, lungs clear, normal breath sounds and no resp distress Routine Cardiovascular Exam Cardiovascular: Present RRR Routine Abdominal Exam Abdominal: Present soft and normoactive bowel sounds Routine Extremities Exam Extremities: Present full ROM Routine Skin Exam Skin: Present intact and dry Routine Neurological Exam Neurological: Present alert, oriented X3 and CN II-XII intact Routine Psychiatric Exam Psychiatric: Present normal affect and normal thought process Urinary Catheter Management Cath placed during this visit: no GENERAL OPHTHALMOLOGIST - PN: Obj Data Labs 07/19/25 04:39 07/18/25 05:35 Labs: Laboratory Results - last 24 hr 07/16/25 07/19/25 08:36 04:39 WBC 10.4 RBC 4.62 Hgb 10.7 L D Hct 35.1 L MCV 76 L MCH 23.2 L MCHC 30.5 L RDW Std Deviation 66.9 H Plt Count 214 Neut % (Auto) 77 Lymph % (Auto) 14 [place] % (Auto) 8 Eos % (Auto) 0 Baso % (Auto) 0 Neut # (Auto) 8.1 H Lymph # (Auto) 1.4 [place] # (Auto) 0.8 Eos # (Auto) 0.0 Baso # (Auto) 0.0 Immature Gran # (Auto) 0.06 H Absolute Nucleated RBC 0.00 Immature Gran % 1 H Nucleated RBC % 0 Blood Type O Positive Antibody Screen NEGATIVE Crossmatch See Detail Blood Bank Wristband ID Yes Blood Bank Comment FFP Ready GENERAL OPHTHALMOLOGIST - A/P Assessment and plan (1) Menorrhagia: Status: Acute Assessment and plan: POD#2 1. Continue routine post operative care 2. Transition to PO meds. 3. Encourage to ambulate 4. Anticipate discharge home today. 5. Home care instructions reviewed (2) ABLA (acute blood loss anemia): Status: Acute Postoperative Procedures: Procedures Operation Date: 07/17/25 07:30 Actual Procedure Side Surgeon p Hysterectomy, Abdominal with bilateral salpingectomy Keaton Tariq MD Time Spent With Patient Time: Total time spent is greater than 50% in coordination of care (as documented) at patient's floor/unit and/or counseling patient: Time with patient: less than 15 minutes
[2025-07-19] MEDS: SODIUM CHLORIDE 0.9% 1000 ML 1,000 ML 999 ML IV (11:48)
[2025-07-19 12:28] LABS: Basophils # (Auto) 0.0 Thou/mm3 (0.0-0.2); Basophils % (Auto) 0 % (0-2.5); Eosinophils # (Auto) 0.0 Thou/mm3 (0.0-0.5); Eosinophils % (Auto) 0 % (0-10); Hematocrit 34.5 % (36.0-46.0); Hemoglobin 10.5 g/dL (12.0-16.0); Immature Granulocytes Auto 0.05 Thou/mm3 (0.00-0.00); Lymphocytes # (Auto) 1.3 Thou/mm3 (1.0-4.8); Lymphocytes % (Auto) 14 % (10-50); Mean Corpuscular HGB Conc 30.4 g/dl (31.0-37.0); Mean Corpuscular Hemoglobin 22.9 pg (25.0-35.0); Mean Corpuscular Volume 75 fL (80-100); Monocytes # (Auto) 0.8 Thou/mm3 (0.0-0.8); Monocytes % (Auto) 8 % (0-12); Neutrophils # (Auto) 7.4 Thou/mm3 (1.8-7.7); Neutrophils % (Auto) 78 % (37-80); Nucleated Red Blood Cell # 0.00 Thou/mm3 (0.00-0.00); Nucleated Red Blood Cell % 0 /100 WBC (0); Platelet Count 192 Thou/mm3 (140-440); RDW Standard Deviation 66.6 fL (36.4-46.3); Red Blood Count 4.58 Miln/mm3 (4.00-5.20); White Blood Count 9.6 Thou/mm3 (3.6-11.0)
[2025-07-19 12:56] LABS: Albumin, Serum 3.5 gm/dL (3.5-5.0); Albumin/Globulin Ratio 1.4 (1.2-2.2); Alkaline Phosphatase 74 U/L (46-116); Anion Gap 8 (7-16); Aspartate Amino Transferase 15 U/L (0-34); BUN/Creatinine Ratio 15 Ratio (12-20); Bilirubin,Total 0.6 mg/dL (0.3-1.2); Blood Urea Nitrogen 12 mg/dL (9-23); Calcium 8.6 mg/dL (8.3-10.6); Calcium (Corrected) 9.0 mg/dL (8.5-10.1); Carbon Dioxide 22.0 mMol/L (20.0-31.0); Chloride 111 mMol/L (98-107); Creatinine (Component) 0.8 mg/dL (0.6-1.3); Estimated Creatinine Clearance 81.4 mL/min (>60); Globulin 2.5 gm/dL (2.3-3.5); Glucose 89 mg/dL (74-106); Osmolality,Calculated 279 (275-295); Potassium 3.9 mMol/L (3.4-5.1); Sodium 141 mMol/L (136-145); Total Protein 6.0 gm/dL (5.7-8.2); eGFR > 60 See Note
[2025-07-19 13:00] LABS: Alanine Aminotransferase < 7 U/L (10-49)
--- NOTE | 2025-07-19 13:12 | EKG_ITS ---
[facility] Test Date: 2025-07-19 Pat Name: ANA MG [facility] Gender: Female [employer] Diver: JIMMY : 1980 Requested By: Cher Morelos Order Number: [id number] Reading MD: Cher Morelos Measurements Intervals [place] Rate: 50 P: -4 MA: 180 QRS: 11 QRSD: 100 T: 0 QT: 417 QTc: 383 Interpretive Statements SINUS BRADYCARDIA LOW QRS VOLTAGE IN PRECORDIAL LEADS POSSIBLE ANTERIOR MYOCARDIAL INFARCTION , OF INDETERMINATE AGE Compared to ECG 04/15/2025 13:51:30 Low QRS voltage now present Myocardial infarct finding now present Sinus rhythm no longer present T-wave abnormality no longer present Possible ischemia no longer present /store/S0/[id number]/[id number].pdf
[2025-07-19 14:15] LABS: Glucose Estimated Average 105 mg/dL (80-131); Hemoglobin A1C 5.3 % Hgb (4.8-6.0)
[2025-07-19 14:20] LABS: Cardiac Risk Estimate 2.7 RATIO (3.7-5.6); Cholesterol 120 mg/dL (132-200); Free T4 (Free Thyroxine) 1.60 ng/dL (0.89-1.76); HDL Cholesterol 45 mg/dL (40-60); LDL Cholesterol,Calculated 54 mg/dL (0-130); Magnesium 1.8 mg/dL (1.6-2.6); Thyroid Stimulating Hormone 1.78 uIU/mL (0.55-4.78); Triglycerides 106 mg/dL (30-150); Troponin I < 0.002 ng/mL (0.0-0.045)
--- NOTE | 2025-07-19 14:23 | ESCONSULT_ITS ---
<Statement entered by Cher Morelos MD - 07/19/25 17:36> Patient was seen and examined at bedside. I agree on the assessment and plan on this note as documented by resident Shahla James DO PGY1. 44-year-old female with past medical history as below admitted for hysterectomy and bilateral salpingectomy by OUTPATIENT DIETITIAN, had a rapid response called earlier today for symptomatic bradycardia, at bedside patient noted to have heart rate 42 endorse lightheadedness and dizziness, patient complained that she had chest tightness 2/10, 30 minutes prior to the episode. During rapid response EKG obtained shows sinus bradycardia, patient did receive opiates for postop pain management. Will discontinue patient's pain will be managed on Toradol. Strongly discourage opiate use currently, lactulose was discontinued. Troponin obtained unremarkable, ordered TSH lipid panel and A1c for cardiac risk stratification. Patient will be moved to telemetry for closer observation. Otherwise labs are stable potassium and magnesium were repleted to keep potassium greater than 4 and magnesium greater than 2 Case discussed with attending Dr. Geneva Aguero MD PGY-2 HPI Data of Consult Requesting Physician: Keaton Tariq MD Admitting Provider: Keaton Tariq MD Attending Provider: Geneva Denise DO Primary Care Provider: ESTHER Friedman MD Consult Narrative Reason for consult: Symptomatic Bradycardia History of present illness: Lulu Zurita is a 44F pmhx significant for chronic anemia 2/2 leiomyoma s/p total hysterectomy and bilateral salpingectomy 07/17/25 who presented post surgery for symptomatic bradycardia. Patient has year long history of menorrhagia with prior blood transfusions and had total hysterectomy and bilateral salpingectomy operation on with general anesthesia. Patient is receiving [facility] and ketorolac for pain post op. Two days postop, 07/19, patient developed bradycardia at 42 with dizziness and lightheadedness. Endorses previous episodes of lightheadedness and dizziness she attributed to her anemia, has never taken her HR during those episodes but has taken BP which was ok . Currently endorses lower abdominal pain and some abdominal distension due to gas. Last BM 3 hours ago, some diarrhea, is usually constipated having 1-2 bowel movements a week. PCP academic clinic. [employer] [facility]. Roque, whom she sees for SEN, last visit last month, recommended hysterectomy. PMHx: iron deficiency anemia Surgical Hx: C section 2017, hysterectomy and salpingectomy 07/17/25 FHx: mother: 3 OH and CHF, ovarian cancer, breast cancer, endometrial cancer Social Hx: Denies tobacco, alcohol, or recreational/illicit drug use Allergies: NKDA Medications: iron supplements Inpatient hospitalist team was consulted for workup of symptomatic bradycardia. cc:: cc: Keaton Tariq MD Review of Systems Review of Systems Systems Reviewed: All systems reviewed, normal except as documented Exam Vital Signs Temp Pulse Resp BP Pulse Ox O2 Del Method O2 Flow Rate 98.7 F 42 L 16 152/86 H 99 Room Air 0 07/19/25 13:06 07/19/25 13:06 07/19/25 13:06 07/19/25 13:06 07/19/25 13:06 07/19/25 11:59 07/18/25 19:35 Narrative Exam GENERAL: AOx3, no acute distress, fatigued HEENT: NC/AT, mucous membranes moist, bilateral sclera anicteric CARDIOVASCULAR: regular rate and rhythm, S1/S2 present, no murmurs appreciated PULMONARY: clear to auscultation bilaterally, no rales/rhonchi/wheezes ABDOMINAL: soft, non-tender, slightly distended, no rebound/guarding, h yperactive bowel sounds, tympanic, dermabond in place above lower abdominal incision EXTREMITIES: no peripheral edema SKIN: warm and dry, intact, no rashes NEURO: CN II-XII grossly intact, no focal deficits, alert, following commands Results Labs 07/20/25 04:45 07/20/25 04:45 Labs: Short CBC 07/19/25 07/19/25 Range/Units 04:39 12:10 WBC 10.4 9.6 (3.6-11.0) Thou/mm3 Hgb 10.7 L D 10.5 L (12.0-16.0) g/dL Hct 35.1 L 34.5 L (36.0-46.0) % Plt Count 214 192 (140-440) Thou/mm3 BMP 07/19/25 12:10 Sodium 141 Potassium 3.9 Chloride 111 H Carbon Dioxide 22.0 BUN 12 Creatinine 0.8 Glucose 89 Calcium 8.6 Cardiac Enzymes 07/19/25 Range/Units 13:17 Troponin I < 0.002 (0.0-0.045) ng/mL Liver Function 07/19/25 Range/Units 12:10 Total Bilirubin 0.6 (0.3-1.2) mg/dL AST 15 (0-34) U/L ALT < 7 L (10-49) U/L Alkaline Phosphatase 74 (46-116) U/L Albumin 3.5 (3.5-5.0) gm/dL Quality Measures Quality Measures VTE prophylaxis Medications Home Medications and Allergies Home Medications ?Medication ?Instructions ?Recorded ?Confirmed ?Type ferrous sulfate 325 mg (65 mg 325 mg PO TID 07/16/25 0 07/16/25 History iron) tablet (FeroSul) Allergies Allergy/AdvReac Type Severity Reaction Status Date / Time No Known Allergies Allergy Verified 07/16/25 09:29 Visit Medications Docusate Sodium (Docusate Sod 100 Mg Capsule) 100 mg PO QDAY [facility] Stop: 08/17/25 08:59 Last Admin: 07/19/25 08:39 Dose: 100 mg Sodium Chloride (Ns) 1,000 mls @ 50 mls/hr IV .Q20H [facility] Stop: 08/17/25 17:00 Last Admin: 07/18/25 18:19 Dose: 50 mls/hr Ibuprofen (Ibuprofen Tab 400 Mg Tablet) 800 mg PO Q8HR PRN PRN Reason: Pain (1-3) Or Fever > 101 Stop: 08/18/25 12:16 Ketorolac Tromethamine (Ketorolac Inj 30 Mg/Ml Vial) 30 mg IVP Q6HR PRN PRN Reason: PAIN SCALE 4-10(Mod-Sev Stop: 07/24/25 13:44 Ondansetron HCl (Ondansetron Inj 2 Mg/Ml Inj 2 Ml) 4 mg IV Q6HR PRN PRN Reason: NAUSEA OR VOMITING Stop: 08/16/25 09:32 Last Admin: 07/18/25 18:17 Dose: 4 mg Discontinued Medications Hydrocodone Bitart/Acetaminophen (Hydrocodone/Apap 5/325 Tablet) 1 tab PO Q4HR PRN PRN Reason: PAIN SCALE 1-3 (mild Stop: 07/23/25 07:35 Last Admin: 07/19/25 09:52 Dose: 1 tab Hydrocodone Bitart/Acetaminophen (Hydrocodone/Apap 5/325 Tablet) 2 tab PO Q6HR PRN PRN Reason: PAIN SCALE 7-10 (Severe Stop: 07/23/25 07:35 Hydrocodone Bitart/Acetaminophen (Hydrocodone/Apap 5/325 Tablet) 1 tab PO Q4HR PRN PRN Reason: PAIN Stop: 07/23/25 07:35 Albuterol/Ipratropium (Albuterol/Ipratropium (Duoneb) Rt Marylou 3 Ml Nebu) 3 ml INH Q4HRRT PRN PRN Reason: SHORTNESS OF BREATH Stop: 08/16/25 08:27 Diphenhydramine HCl (Diphenhydramine Inj 50 Mg/Ml Vial) 25 mg IV Q2HR PRN PRN Reason: ITCHING Stop: 08/16/25 09:32 Fentanyl Citrate (Fentanyl Cit Inj 50 Mcg/Ml Amp 2ml) 50 mcg IVP Q5M PRN PRN Reason: PAIN SCALE 4-6 (Moderate Stop: 07/17/25 10:28 Hydralazine HCl (Hydralazine Inj 20 Mg/Ml Vial) 10 mg IVP X1 ONE Stop: 07/17/25 10:28 Last Admin: 07/17/25 13:42 Dose: Not Given Hydromorphone HCl (Hydromorphone Inj 2 Mg/Ml Vial) 0.5 mg IVP Q10MIN PRN PRN Reason: severe pain 7-10 Stop: 07/17/25 10:28 Last Admin: 07/17/25 10:10 Dose: 0.5 mg Hydromorphone HCl (Hydromorphone 1 Mg/Ml Coal Pulverizing Operator Syringe 30ml) 0 mg EMBROIDERY WORKER UD LATRICE; Protocol Stop: 07/22/25 09:44 Last Admin: 07/17/25 10:23 Dose: 30 mg Lactated Ringer's (Lactated Ringers) 1,000 mls @ 20 mls/hr IV .Q24H ONE Stop: 07/18/25 05:59 Sodium Chloride (Ns) 500 mls @ 20 mls/hr IV .Q24H ONE Stop: 07/18/25 05:59 Last Admin: 07/17/25 10:50 Dose: Not Given Promethazine HCl 25 mg/ Sodium (Chloride) 51 mls @ 2.5 mls/min IV Q6HR PRN; Protocol PRN Reason: NAUSEA OR VOMITING Stop: 08/16/25 09:32 Acetaminophen (Ofirmev Inj) 1,000 mg in 100 mls @ 250 mls/hr IV Q6HR LATRICE Stop: 07/18/25 06:23 Last Infusion: 07/18/25 06:20 Dose: Infused Sodium Chloride (Ns) 1,000 mls @ 200 mls/hr IV .Q5H LATRICE Stop: 08/16/25 09:44 Last Admin: 07/18/25 02:27 Dose: 200 mls/hr Tranexamic Acid (Tranexamic Acid Ivpb) 1,000 mg in 100 mls @ 200 mls/hr IV Q8H [facility] Stop: 07/18/25 08:14 Last Admin: 07/18/25 09:33 Dose: 200 mls/hr Sodium Chloride (Ns) 1,000 mls @ 75 mls/hr IV .[id number] [facility] Stop: 08/17/25 07:35 Last Admin: 07/18/25 09:31 Dose: 75 mls/hr Sodium Chloride (Ns) 1,000 mls @ 999 mls/hr IV .Q1H1M ONE Stop: 07/19/25 12:42 Last Admin: 07/19/25 11:48 Dose: 999 mls/hr Ibuprofen (Ibuprofen Tab 400 Mg Tablet) 800 mg PO Q8HR PRN PRN Reason: PAIN OR FEVER > 101 Stop: 08/18/25 12:16 Ketorolac Tromethamine (Ketorolac Inj 30 Mg/Ml Vial) 30 mg IVP Q6HR [facility] Stop: 07/23/25 07:44 Last Admin: 07/19/25 11:34 Dose: 30 mg Labetalol HCl (Labetalol Inj 5 Mg/Ml Vial 20 Ml) 5 mg IVP Q10MIN PRN; Protocol PRN Reason: SBP >180 DBP>100 or HR >100 Stop: 07/17/25 10:28 Lactulose (Lactulose Syrup 20 Gm/30 Ml Udc) 10 gm PO TID LATRICE Stop: 08/17/25 13:59 Last Admin: 07/19/25 05:59 Dose: 10 gm Magnesium Hydroxide (Milk Of Magnesia Susp 30 Ml Udc) 30 ml PO X1 ONE Stop: 07/17/25 09:34 Last Admin: 07/17/25 12:07 Dose: 30 ml Metoprolol Tartrate (Metoprolol Tartrate Inj 1 Mg/Ml Amp 5 Ml) 2.5 mg IVP PRN PRN; Protocol PRN Reason: Heart Rate- High Stop: 07/17/25 10:28 Ondansetron HCl (Ondansetron Inj 2 Mg/Ml Inj 2 Ml) 4 mg IVP X1 ONE; Protocol Stop: 07/17/25 08:29 Last Admin: 07/17/25 14:00 Dose: 4 mg Potassium Chloride (Potassium Chloride 20 Meq Tabcr) 20 meq PO X1 ONE Stop: 07/19/25 13:20 Promethazine HCl (Promethazine Inj 25 Mg/Ml Vial) 12.5 mg IV Q30M PRN PRN Reason: NAUSEA Stop: 07/17/25 10:29 Assessment & Plan Plan Lulu Zurita is a 44F pmhx significant for chronic anemia 2/2 leiomyoma s/p total hysterectomy and bilateral salpingectomy 07/17/25 who presented post surgery for symptomatic bradycardia. #Symptomatic bradycardia Reports no history of bradycardia. Endorses previous episodes of lightheadedness and dizziness which she attributed to anemia, however never checked her heart rate. Rapid response called 07/19 at 1306 for lightheadedness and dizziness with a HR of 42. EKG shows sinus bradycardia rate 50, no heart block visualized Ddx: likely 2/2 post op opioids, post op anesthesia effects, vagal nerve stimulation, low suspicion for true cardiac origin Plan: - Stop [facility] 5 - Continue ketorolac 30 mg IV q6h prn - CTM HR - Telemetry for cardiac monitoring - Consider consulting cardiology if persistently bradycardic - Discontinue lactulose #Chronic microcytic anemia 2/2 #Leiomyoma s/p total hysterectomy and bilateral salpingectomy 07/17/25 Hgb on admission 7.9, s/p 3 units PRBC. On consult, Hgb 10.5 MCV 75. Takes iron supplements at home Plan: - Hold iron supplements at this time - CTM CBC - Transfuse Hgb <7 Hospital management: Lines: PIV Diet: Regular Bowel: not indicated GI prophylaxis: not indicated DVT prophylaxis: SCDs Disposition: telemetry for bradycardia monitoring CODE STATUS: Full code Plan of care discussed with attending Dr. Denise, and PGY-2 Dr. Morelos. Shahla James DO PGY-1 Internal Medicine Attending Provider Attestation/Addendum I, Geneva Denise DO, attest that I was physically present for the lindquist portions of the service and evaluated the patient with the resident and I reviewed and discussed the case with the resident and agree with the resident's findings and plans of care as documented above Patient is a 44 year old female with pmhx of uterine fibroids, menorrhagia, and acute blood loss anemia who awas admitted for RAE and b/l salpingectomy due to menorrhagia, now POD2. Patient had a rapid response due to dizziness and bradycardia. Patient has been receiving [facility] for pain relief due to pain from RAE. Pfanenstiel incision appears clean, dry and intact, no surrounding erythema noted. EKG reviewed, no ST or T wave changes noted. Troponin negative. Patient reported some chest discomfort after lunch. Chest pain appears to be atypical. Internal medicine has been consulted regarding bradycardia. Review of previous vitals, patient has bradycardia at baseline, which may have been exacerbated by opioids. Will DC norco and switch pain control to toradol. Patient moved to telemetry for cardiac monitoring. Patient reported resolution of symptoms upon my evaluation and has been ambulatory to the bathroom without any further episodes of lightheadedness or chest pain. She denied any shortness of breath.
[2025-07-19] MEDS: SODIUM CHLORIDE 0.9% 1000 ML 1,000 ML 50 ML IV (15:20)
[2025-07-19] MEDS: ONDANSETRON INJ 2 MG/ML INJ 2 ML 4 MG IV ×2 (16:59→21:01)
[2025-07-19] MEDS: Magnesium Sulfate 4 GM Ivpb 4 GM/50 ML BAG IV (18:18)
--- NOTE | 2025-07-19 20:14 | PC.NURSE ---
DR. REILLY NOTIFIED OF PT W/NAUSEA, YELLOW EMESIS ~200 ML. UNABLE TO INTAKE ANY FOOD/ICE CHIPS D/T NAUSEA/EMESIS. PT ALSO W/ C/O CONSTIPATION. +BM TODAY, PER PT, SMALL AND FIRM. ABDOMEN DISTENDED BUT SOFT. PER MD CONTINUE TO MONITOR . REQUESTED TO HAVE AN ADDITIONAL ANTI-NAUSEA MEDICATION LIKE REGLAN OR INCREASE FREQUENCY OF ZOFRAN. OK TO INCREASE FREQUENCY OF ZOFRAN TO [id number]. NO FURTHER ORDERS FOR CONSTIPATION PER MD REQUEST.
[2025-07-19] MEDS: METOCLOPRAMIDE INJ 5 MG/ML VIAL 2 ML 10 MG IVP (22:38)
[2025-07-20] VITALS (8 sets, daily range): BP systolic 103–147; BP diastolic 59–71; PULSE 41–57; RESP 14–24; TEMP 36.2–36.8; O2SAT 95–99
[2025-07-20 06:07] LABS: Basophils # (Auto) 0.0 Thou/mm3 (0.0-0.2); Basophils % (Auto) 0 % (0-2.5); Eosinophils # (Auto) 0.0 Thou/mm3 (0.0-0.5); Eosinophils % (Auto) 0 % (0-10); Hematocrit 36.9 % (36.0-46.0); Hemoglobin 11.4 g/dL (12.0-16.0); Immature Granulocytes Auto 0.08 Thou/mm3 (0.00-0.00); Lymphocytes # (Auto) 1.6 Thou/mm3 (1.0-4.8); Lymphocytes % (Auto) 13 % (10-50); Mean Corpuscular HGB Conc 30.9 g/dl (31.0-37.0); Mean Corpuscular Hemoglobin 23.5 pg (25.0-35.0); Mean Corpuscular Volume 76 fL (80-100); Monocytes # (Auto) 0.8 Thou/mm3 (0.0-0.8); Monocytes % (Auto) 7 % (0-12); Neutrophils # (Auto) 9.1 Thou/mm3 (1.8-7.7); Neutrophils % (Auto) 79 % (37-80); Nucleated Red Blood Cell # 0.00 Thou/mm3 (0.00-0.00); Nucleated Red Blood Cell % 0 /100 WBC (0); Platelet Count 218 Thou/mm3 (140-440); RDW Standard Deviation 69.2 fL (36.4-46.3); Red Blood Count 4.86 Miln/mm3 (4.00-5.20); White Blood Count 11.6 Thou/mm3 (3.6-11.0)
[2025-07-20 06:37] LABS: Albumin, Serum 3.6 gm/dL (3.5-5.0); Anion Gap 11 (7-16); BUN/Creatinine Ratio 13 Ratio (12-20); Blood Urea Nitrogen 10 mg/dL (9-23); Calcium 8.9 mg/dL (8.3-10.6); Calcium (Corrected) 9.2 mg/dL (8.5-10.1); Carbon Dioxide 21.0 mMol/L (20.0-31.0); Chloride 110 mMol/L (98-107); Creatinine (Component) 0.8 mg/dL (0.6-1.3); Estimated Creatinine Clearance 81.4 mL/min (>60); Glucose 78 mg/dL (74-106); Magnesium 2.4 mg/dL (1.6-2.6); Osmolality,Calculated 281 (275-295); Phosphorous 2.6 mg/dL (2.4-5.1); Potassium 4.2 mMol/L (3.4-5.1); Sodium 142 mMol/L (136-145); eGFR > 60 See Note
[2025-07-20] MEDS: POLYETHYLENE GLYCOL 17 GM PACKET 34 GM PO (07:59)
[2025-07-20] MEDS: DOCUSATE SOD 100 MG CAPSULE PO (08:00)
[2025-07-20] MEDS: SODIUM CHLORIDE 0.9% 1000 ML 1,000 ML 50 ML IV (08:11)
--- NOTE | 2025-07-20 09:31 | CONPN_ITS ---
<Statement entered by Cher Morelos MD - 07/20/25 14:27> Patient was seen and examined at bedside. I agree on the assessment and plan on this note as documented by resident Shahla James DO PGY1. 44-year-old female with past medical history of chronic iron deficiency anemia and menorrhagia who was admitted to [facility] by HAND SCRAPER for total abdominal hysterectomy and bilateral salpingectomy. Patient had rapid response on 07/19 for symptomatic bradycardia, patient noted to be bradycardic for hospitalization her symptoms of lightheadedness and dizziness secondary to postop opiates, patient transferred to telemetry for closer observation, troponin unremarkable; TSH lipid panel and A1c unremarkable; magnesium and potassium were repleted to keep magnesium greater than 2 and potassium more than 4. EKG revealed sinus bradycardia, overnight patient had no symptoms, does have some postop pain and nausea along with some constipation, encouraged patient to mobilize, patient stable from internal medicine standpoint for discharge, patient will benefit from outpatient cardiology follow-up obtain echocardiogram and Holter monitoring. Patient to follow-up outpatient with PCP for management of anemia, will benefit from IV iron. Encouraged patient to maintain adequate hydration. Patient stable from internal medicine standpoint, will sign off, informed Dr. Tariq. Case discussed with attending Dr. Geneva Aguero MD PGY-2 Documented by User: Geneva Denise DO 07/20/25 16:59 Documentation for date of: 07/20/25 Exam Vital Signs Temp Pulse Resp BP Pulse Ox O2 Del Method O2 Flow Rate 97.3 F 44 L 14 124/71 95 Room Air 0 07/20/25 08:00 07/20/25 08:00 07/20/25 08:00 07/20/25 08:00 07/20/25 08:00 07/20/25 08:00 07/19/25 16:00 Objective - Hospitalist Labs Diagram: 07/20/25 04:45 07/20/25 04:45 Labs: Laboratory Results - last 24 hr 07/19/25 07/19/25 07/19/25 12:10 13:17 13:37 WBC 9.6 RBC 4.58 Hgb 10.5 L Hct 34.5 L MCV 75 L MCH 22.9 L MCHC 30.4 L RDW Std Deviation 66.6 H Plt Count 192 Neut % (Auto) 78 Lymph % (Auto) 14 [place] % (Auto) 8 Eos % (Auto) 0 Baso % (Auto) 0 Neut # (Auto) 7.4 Lymph # (Auto) 1.3 [place] # (Auto) 0.8 Eos # (Auto) 0.0 Baso # (Auto) 0.0 Immature Gran # (Auto) 0.05 H Absolute Nucleated RBC 0.00 Immature Gran % 1 H Nucleated RBC % 0 Sodium 141 Potassium 3.9 Chloride 111 H Carbon Dioxide 22.0 Anion Gap 8 BUN 12 Creatinine 0.8 Estim Creat Clear Calc 81.4 eGFR > 60 BUN/Creatinine Ratio [address] Glu mg/dL 105 Hemoglobin A1c 5.3 Calculated Osmolality 279 Calcium 8.6 Corrected Calcium 9.0 Phosphorus Magnesium 1.8 Total Bilirubin 0.6 AST 15 ALT < 7 L Alkaline Phosphatase 74 Troponin I < 0.002 Total Protein 6.0 Albumin 3.5 Globulin 2.5 Albumin/Globulin Ratio 1.4 Triglycerides 106 Cholesterol 120 L LDL Cholesterol, Calc 54 HDL Cholesterol 45 Cholesterol/HDL Ratio 2.7 L TSH 1.78 Free T4 1.60 07/20/25 04:45 WBC 11.6 H RBC 4.86 Hgb 11.4 L Hct 36.9 MCV 76 L MCH 23.5 L MCHC 30.9 L RDW Std Deviation 69.2 H Plt Count 218 Neut % (Auto) 79 Lymph % (Auto) 13 [place] % (Auto) 7 Eos % (Auto) 0 Baso % (Auto) 0 Neut # (Auto) 9.1 H Lymph # (Auto) 1.6 [place] # (Auto) 0.8 Eos # (Auto) 0.0 Baso # (Auto) 0.0 Immature Gran # (Auto) 0.08 H Absolute Nucleated RBC 0.00 Immature Gran % 1 H Nucleated RBC % 0 Sodium 142 Potassium 4.2 Chloride 110 H Carbon Dioxide 21.0 Anion Gap 11 BUN 10 Creatinine 0.8 Estim Creat Clear Calc 81.4 eGFR > 60 BUN/Creatinine Ratio [address] Glu mg/dL Hemoglobin A1c Calculated Osmolality 281 Calcium 8.9 Corrected Calcium 9.2 Phosphorus 2.6 Magnesium 2.4 Total Bilirubin AST ALT Alkaline Phosphatase Troponin I Total Protein Albumin 3.6 Globulin Albumin/Globulin Ratio Triglycerides Cholesterol LDL Cholesterol, Calc HDL Cholesterol Cholesterol/HDL Ratio TSH Free T4 Assessment & Plan Plan: Luluefe Zurita is a 44F pmhx significant for chronic anemia 2/2 leiomyoma s/p total hysterectomy and bilateral salpingectomy 07/17/25 who presented post surgery for symptomatic bradycardia. #Symptomatic bradycardia Reports no history of bradycardia. Endorses previous episodes of lightheadedness and dizziness which she attributed to anemia, however never checked her heart rate. Rapid response called 07/19 at 1306 for lightheadedness and dizziness with a HR of 42. EKG shows sinus bradycardia rate 50, no heart block visualized Ddx: likely 2/2 post op opioids, post op anesthesia effects, vagal nerve stimulation, low suspicion for true cardiac origin Plan: - Discontinue [place] 5 and lactulose - Recommend to follow up with functional tester outpatient for further workup, monitoring and management - Recommend adequate hydration of at least 2 L of water a day - Encourage incentive spirometer and to walk #Chronic microcytic anemia 2/2 #Menorrhagia #Leiomyoma s/p total hysterectomy and bilateral salpingectomy 07/17/25 Hgb on admission 7.9, s/p 3 units PRBC with improvement of H&H. On consult, Hgb 10.5 MCV 75. Takes iron supplements at home Plan: - Hold oral iron supplements at this time due to constipation - Recommend to follow up with PCP and OBGYN regarding further iron supplementation - Recommend to obtain IV iron supplementation as IV would be a better alternative to PO iso constipation - Continue ketorolac 30 mg IV q6h prn for pain, avoid opiates Hospital management: Lines: PIV Diet: Regular Bowel: not indicated GI prophylaxis: not indicated DVT prophylaxis: SCDs CODE STATUS: Full code Plan of care discussed with attending Dr. Denise, and PGY-2 Dr. Morelos. Hospitalist team will sign off. Thank you for allowing us participation in Ms. Zurita's care. Shahla James DO PGY-1 Internal Medicine I, Geneva Denise DO, attest that I was physically present for the lindquist portions of the service and evaluated the patient with the resident and I reviewed and discussed the case with the resident and agree with the resident's findings and plans of care as documented above Time Spent with Patient Time: Total time spent is greater than 50% in coordination of care (as documented) at patient's floor/unit and/or counseling patient: 25min Quality Measures Quality Measures VTE prophylaxis Documented by User: Shahla James, STUDENT RE 07/20/25 12:00 Subjective - Hospitalist Subjective Interval history: Overnight patient was feeling nauseous received Zofran and Reglan x 1 each, reported that Reglan made her feel anxious and tingly . Patient seen and examined at bedside with daughter. Patient reports some nausea, unable to keep solid food down with lower abdominal pain. Reports feeling gassy, had small amounts of diarrhea early in the morning. Endorses that [place] made her feel unwell and ketorolac is helping. Denies lightheadedness or dizziness similar to prior episode when she gets up to go to the bathroom. Hospitalist's team will sign off as patient is asymptomatic currently. Likely nauseous and gassy from lack of bowel movement and lower abdominal pain status post surgery. Recommended patient to follow up outpatient with functional tester, as well as IV iron due to chronic anemia. Recommend adequate hydration, at least 2 L of water a day. Continue Zofran as needed. Review of Systems Review of Systems Systems Reviewed: All systems reviewed, normal except as documented Exam Narrative GENERAL: AOx3, no acute distress, fatigued, nauseous HEENT: NC/AT, mucous membranes moist, bilateral sclera anicteric CARDIOVASCULAR: regular rate and rhythm, S1/S2 present, no murmurs appreciated PULMONARY: clear to auscultation bilaterally, no rales/rhonchi/wheezes ABDOMINAL: soft, non-tender, slightly distended, no rebound/guarding, h yperactive bowel sounds, tympanic, dermabond in place above lower abdominal incision EXTREMITIES: no peripheral edema SKIN: warm and dry, intact, no rashes NEURO: CN II-XII grossly intact, no focal deficits, alert, following commands Assessment & Plan Plan: Lulu Zurita is a 44F pmhx significant for chronic anemia 2/2 leiomyoma s/p total hysterectomy and bilateral salpingectomy 07/17/25 who presented post surgery for symptomatic bradycardia. #Symptomatic bradycardia Reports no history of bradycardia. Endorses previous episodes of lightheadedness and dizziness which she attributed to anemia, however never checked her heart rate. Rapid response called 07/19 at 1306 for lightheadedness and dizziness with a HR of 42. EKG shows sinus bradycardia rate 50, no heart block visualized Ddx: likely 2/2 post op opioids, post op anesthesia effects, vagal nerve stimulation, low suspicion for true cardiac origin Plan: - Discontinue [place] 5 and lactulose - Recommend to follow up with functional tester outpatient for further workup, monitoring and management - Recommend adequate hydration of at least 2 L of water a day - Encourage incentive spirometer and to walk #Chronic microcytic anemia 2/2 #Menorrhagia #Leiomyoma s/p total hysterectomy and bilateral salpingectomy 07/17/25 Hgb on admission 7.9, s/p 3 units PRBC with improvement of H&H. On consult, Hgb 10.5 MCV 75. Takes iron supplements at home Plan: - Hold oral iron supplements at this time due to constipation - Recommend to follow up with PCP and OBGYN regarding further iron supplementation - Recommend to obtain IV iron supplementation as IV would be a better alternative to PO iso constipation - Continue ketorolac 30 mg IV q6h prn for pain, avoid opiates Hospital management: Lines: PIV Diet: Regular Bowel: not indicated GI prophylaxis: not indicated DVT prophylaxis: SCDs CODE STATUS: Full code Plan of care discussed with attending Dr. Denise, and PGY-2 Dr. Morelos. Hospitalist team will sign off. Thank you for allowing us participation in Ms. Zurita's care. Shahla James DO PGY-1 Internal Medicine Time Spent with Patient Time with patient: Greater than 35 minutes Reason for Continued Stay Reason for continued stay: defer to attending
--- NOTE | 2025-07-20 10:09 | PC.SS ---
SS update: possible d/c home today.
--- NOTE | 2025-07-20 11:32 | ESPR_ITS ---
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 No acute complaints. Continues to remain bradycardic. All opioids were discontinued. EKG shows sinus bradycardia. Patient is mildly symptomatic. Surgically she is doing well. Exam Vital Signs Temp Pulse Resp BP Pulse Ox O2 Del Method O2 Flow Rate 97.3 F 44 L 14 124/71 95 Room Air 0 07/20/25 08:00 07/20/25 08:00 07/20/25 08:00 07/20/25 08:00 07/20/25 08:00 07/20/25 08:00 07/19/25 16:00 Constitutional Constitutional: no acute distress Routine HEENT Exam Head: Present normocephalic and atraumatic Eye: Present EOMI and PERRL ENT: Present mucous membranes moist Routine Neck Exam Neck: Present supple and trachea midline Routine Respiratory Exam Respiratory: Present chest non-tender, lungs clear, normal breath sounds and no resp distress Routine Cardiovascular Exam Cardiovascular: Present RRR Routine Abdominal Exam Abdominal: Present soft and normoactive bowel sounds Routine Extremities Exam Extremities: Present full ROM Routine Skin Exam Skin: Present intact and dry Routine Neurological Exam Neurological: Present alert, oriented X3 and CN II-XII intact Routine Psychiatric Exam Psychiatric: Present normal affect and normal thought process Urinary Catheter Management Cath placed during this visit: no UPSETTING MACHINE OPERATOR - PN: Obj Data Labs 07/20/25 04:45 07/20/25 04:45 Labs: Laboratory Results - last 24 hr 07/19/25 07/19/25 07/19/25 12:10 13:17 13:37 WBC 9.6 RBC 4.58 Hgb 10.5 L Hct 34.5 L MCV 75 L MCH 22.9 L MCHC 30.4 L RDW Std Deviation 66.6 H Plt Count 192 Neut % (Auto) 78 Lymph % (Auto) 14 [place] % (Auto) 8 Eos % (Auto) 0 Baso % (Auto) 0 Neut # (Auto) 7.4 Lymph # (Auto) 1.3 [place] # (Auto) 0.8 Eos # (Auto) 0.0 Baso # (Auto) 0.0 Immature Gran # (Auto) 0.05 H Absolute Nucleated RBC 0.00 Immature Gran % 1 H Nucleated RBC % 0 Sodium 141 Potassium 3.9 Chloride 111 H Carbon Dioxide 22.0 Anion Gap 8 BUN 12 Creatinine 0.8 Estim Creat Clear Calc 81.4 eGFR > 60 BUN/Creatinine Ratio [address] Glu mg/dL 105 Hemoglobin A1c 5.3 Calculated Osmolality 279 Calcium 8.6 Corrected Calcium 9.0 Phosphorus Magnesium 1.8 Total Bilirubin 0.6 AST 15 ALT < 7 L Alkaline Phosphatase 74 Troponin I < 0.002 Total Protein 6.0 Albumin 3.5 Globulin 2.5 Albumin/Globulin Ratio 1.4 Triglycerides 106 Cholesterol 120 L LDL Cholesterol, Calc 54 HDL Cholesterol 45 Cholesterol/HDL Ratio 2.7 L TSH 1.78 Free T4 1.60 07/20/25 04:45 WBC 11.6 H RBC 4.86 Hgb 11.4 L Hct 36.9 MCV 76 L MCH 23.5 L MCHC 30.9 L RDW Std Deviation 69.2 H Plt Count 218 Neut % (Auto) 79 Lymph % (Auto) 13 [place] % (Auto) 7 Eos % (Auto) 0 Baso % (Auto) 0 Neut # (Auto) 9.1 H Lymph # (Auto) 1.6 [place] # (Auto) 0.8 Eos # (Auto) 0.0 Baso # (Auto) 0.0 Immature Gran # (Auto) 0.08 H Absolute Nucleated RBC 0.00 Immature Gran % 1 H Nucleated RBC % 0 Sodium 142 Potassium 4.2 Chloride 110 H Carbon Dioxide 21.0 Anion Gap 11 BUN 10 Creatinine 0.8 Estim Creat Clear Calc 81.4 eGFR > 60 BUN/Creatinine Ratio [address] Glu mg/dL Hemoglobin A1c Calculated Osmolality 281 Calcium 8.9 Corrected Calcium 9.2 Phosphorus 2.6 Magnesium 2.4 Total Bilirubin AST ALT Alkaline Phosphatase Troponin I Total Protein Albumin 3.6 Globulin Albumin/Globulin Ratio Triglycerides Cholesterol LDL Cholesterol, Calc HDL Cholesterol Cholesterol/HDL Ratio TSH Free T4 UPSETTING MACHINE OPERATOR - A/P Assessment and plan (1) Menorrhagia: Status: Acute Assessment and plan: Patient is postoperative day #3 status post total abdominal hysterectomy and bilateral salpingectomy Patient is ready for discharge from a surgical standpoint. Awaiting recommendations from the hospitalist team if she is cleared for discharge. Will discharge home only on ibuprofen and stool softener, no narcotics until cardiac condition is resolved. (2) ABLA (acute blood loss anemia): Status: Acute Postoperative Procedures: Procedures Operation Date: 07/17/25 07:30 Actual Procedure Side Surgeon p Hysterectomy, Abdominal with bilateral salpingectomy Keaton Marciano, MD Time Spent With Patient Time: Total time spent is greater than 50% in coordination of care (as documented) at patient's floor/unit and/or counseling patient: Time with patient: less than 15 minutes
[2025-07-20] MEDS: PIPER/TAZO 3.375 GM PREMIX 3.375 GM/50 ML BAG IV ×2 (12:19→21:31)
[2025-07-20] MEDS: KETOROLAC INJ 30 MG/ML VIAL IVP (12:20)
--- NOTE | 2025-07-20 14:11 | PC.SS ---
Rounding note: d/c today home.
[2025-07-21] VITALS: BP 112/62; PULSE 44; PULSE 67; RESP 13; TEMP 37.1; O2SAT 94
[2025-07-21 03:24] VITALS: BP 118/69; PULSE 103; RESP 15; TEMP 36.5; O2SAT 97
[2025-07-21 04:00] VITALS: PULSE 45
[2025-07-21] MEDS: SODIUM CHLORIDE 0.9% 1000 ML 1,000 ML 50 ML IV (05:27)
[2025-07-21] MEDS: PIPER/TAZO 3.375 GM PREMIX 3.375 GM/50 ML BAG IV (05:27)
[2025-07-21 07:28] VITALS: PULSE 45
[2025-07-21 08:00] VITALS: BP 111/67; PULSE 43; RESP 19; TEMP 36.4; O2SAT 95
[2025-07-21] MEDS: DOCUSATE SOD 100 MG CAPSULE PO (08:20)
[2025-07-21] MEDS: KETOROLAC INJ 30 MG/ML VIAL IVP (08:28)
[2025-07-21 12:00] VITALS: BP 103/59; PULSE 44; PULSE 50; RESP 17; TEMP 36.9; O2SAT 100
--- NOTE | 2025-07-21 12:29 | ESPR_ITS ---
Documentation for date of: 07/21/25 MEALS ON WHEELS DRIVER Subjective Subjective Interval history: Patient doing well this morning. No acute complaints. Did have bowel movement yesterday and feels that she feels much better after that. Continues to remain bradycardic. All opioids were discontinued. EKG shows sinus bradycardia. Patient is mildly symptomatic. Surgically she is doing well. Exam Vital Signs Temp Pulse Resp BP Pulse Ox O2 Del Method O2 Flow Rate 97.6 F 43 L 19 111/67 95 Room Air 0 07/21/25 08:00 07/21/25 08:00 07/21/25 08:00 07/21/25 08:00 07/21/25 08:00 07/21/25 08:00 07/19/25 16:00 Constitutional Constitutional: no acute distress Routine HEENT Exam Head: Present normocephalic and atraumatic Eye: Present EOMI and PERRL ENT: Present mucous membranes moist Routine Neck Exam Neck: Present supple and trachea midline Routine Respiratory Exam Respiratory: Present chest non-tender, lungs clear, normal breath sounds and no resp distress Routine Cardiovascular Exam Cardiovascular: Present RRR Routine Abdominal Exam Abdominal: Present soft and normoactive bowel sounds Routine Extremities Exam Extremities: Present full ROM Routine Skin Exam Skin: Present intact and dry Routine Neurological Exam Neurological: Present alert, oriented X3 and CN II-XII intact Routine Psychiatric Exam Psychiatric: Present normal affect and normal thought process Urinary Catheter Management Cath placed during this visit: no MEALS ON WHEELS DRIVER - PN: Obj Data Labs 07/20/25 04:45 07/20/25 04:45 MEALS ON WHEELS DRIVER - A/P Assessment and plan (1) Menorrhagia: Status: Acute Assessment and plan: Patient is postoperative day #4 status post total abdominal hysterectomy postoperative course significant for symptomatic sinus bradycardia and sluggish bowel function Now doing well after bowel movement Plan to discharge home today Patient given detailed instructions about restrictions and precautions Follow-up in the office in 1 week (2) ABLA (acute blood loss anemia): Status: Acute Postoperative Procedures: Procedures Operation Date: 07/17/25 07:30 Actual Procedure Side Surgeon p Hysterectomy, Abdominal with bilateral salpingectomy Keaton Tariq MD Time Spent With Patient Time: Total time spent is greater than 50% in coordination of care (as documented) at patient's floor/unit and/or counseling patient: Time with patient: less than 15 minutes
--- NOTE | 2025-07-21 14:22 | PC.SS ---
rounding note: patient is no longer followed by [facility] doctors, but doctors stated that she is ready for d/c today.
== END 2025-07-21 14:25 | disposition home or self-care (01) | DRG 513 ==
LOC: S2W1 06:56 → S3SX 15:38 → S2NX 07-19 13:47
PROVIDERS: Admitting Provider Obstetrics & Gynecology; PCP Family Medicine; Visit Provider Obstetrics & Gynecology
PROC: 0UT90ZZ Resection of Uterus, Open Approach (ICD-10-PCS; principal; 2025-07-17 07:30)
DX: N92.0 Excessive and frequent menstruation with regular cycle (principal); Z98.51 Tubal ligation status; D62 Acute posthemorrhagic anemia; K66.0 Peritoneal adhesions (postprocedural) (postinfection)
CPT/HCPCS: 36415; 80048; 80053; 80061; 80069; 83036; 83735; 84439; 84443; 84484; 84703; 85025; 86850; 86900; 86901; 86923; 86927; 93005; A4217; A4649; J0131; J0690; J1171; J1885; J2250; J2371; J2405; J2470; J2543; J2704; J2765; J3010; J3475; J3490; J7030; J7120; P9016; P9060; A9270

== ENCOUNTER 2025-08-05 12:55 | Outpatient (AMB) | payer MEDICAID, SELFPAY ==
[2025-08-05 13:13] VITALS: BP 119/78; PULSE 71; RESP 14; TEMP 36.6; O2SAT 96; BMI 31.1
--- NOTE | 2025-08-05 13:13 | GYNCLNT_ITS ---
Vital Signs 08/05/25 13:13 Height 1.57 m Height Method Stated Weight 77.337 kg Weight Measurement Method Standing Scale BMI 31.1 BP 119/78 Blood Pressure Source Automatic Cuff Blood Pressure Location Left Upper Arm Position Sitting Respiration 14 Pulse 71 Pulse Source Monitor Temp 97.8 F Temp Source Oral Pulse Oximetry (%) 96 Oxygen Delivery Method Room Air Allergies/Home Meds Allergies & Medications Allergies No Known Allergies Allergy (Verified 08/05/25 13:14) Medication Reconciliation ferrous sulfate 325 mg (65 mg iron) tablet (FeroSul) 325 mg PO TID 07/16/25 [History Confirmed 08/05/25] docusate sodium 100 mg capsule (Stool Softener) 100 mg PO QDAY 30 days #30 caps 07/20/25 [Rx Confirmed 08/05/25] pantoprazole 40 mg tablet,delayed release 40 mg PO QDAY 30 days #30 tabs 12/14 [Rx Confirmed 08/05/25] Intake Visit Data Collection New Patient or Established: Established Patient (seen at [facility] within 3 years) Reason for Visit:: POST OP FOLLOW UP Seen by Clinical Staff ONLY (RN/MA): No Security Police Officer Required: No Do You Feel Safe at Home: Yes Authorities Contacted: N/A PCP or OBGYN visit in last 3 months: Yes Hx Now: No Are you currently on any form of Control: No Pain Present Currently: Yes Pain Location: Abdomen (LOWER ABDOMEN) Pain Scale Used: Noe-King/Numerical Pain scale:: 8 Smoking Status Smoking Status: Never 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 regularity: regular Flow: heavy Monthly: No How many days does period last: 14 Age at menarche: 11 Currently sexually active: No If not currently sexually active, have you ever been sexually active: Yes 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: Past Medical History Past Medical History: No Hx Neurological Disorders, No Hx Hypothyroidism, No Hx Hyperthyroidism, No Hx Breast Cancer, No Hx Cardiac Disorders, No Hx Hypertension, No Hx Cancer, Yes Hx Blood Disorders, Yes Hx Anemia, No Hx Gastrointestinal Disorders, No Hx Renal Disease, No Hx Deep Vein Thrombosis, No Hx Diabetes Mellitus Type 1, No Hx Diabetes Mellitus Type 2, Yes Hx Tubal Ligation, No Hx Hysterectomy and No Psychiatric Problems Questionnaires Covid-19 Vaccine Questionnaire Has patient been vacinated for Covid-19 Have you been vacinated for Covid-19: Yes PHQ-9 PHQ-2 Over the last 2 weeks, how often have you been bothered by any of the following problems? 1. Little interest or pleasure in doing things: not at all 2. Feeling down, depressed, or hopeless: not at all Total score: 0 PHQ-9 3. Trouble falling or staying asleep, or sleeping too much: Not at all 4. Feeling tired or having little energy: Not at all 5. Poor appetite or overeating: Not at all 6. Feeling bad about yourself - or that you are a failure or have let yourself or your family down: Not at all 7. Trouble concentrating on things, such as reading the newspaper or watching television: Not at all 8. Moving or speaking so slowly that other people could have noticed? - Or the opposite - being so fidgety or restless that you have been moving around a lot more than usual: not at all 9. Thoughts that you would be better off or of hurting yourself in some way: Not at all Total score: 0 Source: Developed by Drs. Kentrell Okeefe, Irene Orr, Saeed Ge and colleagues, with an educational kiara from [employer]. Depression screen completed yes Social History Living Situation History Lives With: Family Housing: House Tobacco History Smoking Status: Never smoker Second Hand Smoke Exposure: No Alcohol History Alcohol Intake: Never Domestic Abuse History Do You Feel Safe at Home: Yes History of Present Illness HPI Narrative Lulu Zurita presents for a postoperative visit following a total abdominal hysterectomy performed on July 17, 2025, for severe menorrhagia. Her postoperative course was significant for sinus bradycardia. The patient reports that her surgical site is getting better than before, although she still experiences some soreness and pain, which is noted to be part of the normal healing process. She mentions numbness in the surgical area, which she was informed is expected to resolve within two months post-surgery. The patient's heart rate remains notably low, reported to be in the forties. The patient is currently using a binder as part of her postoperative care and has been advised to continue wearing it until mid-August. She has been instructed to follow precautions, including not lifting anything more than 25-30 pounds and limiting excessive walking. The patient is scheduled for a follow-up appointment with Dr. Roque in September for further evaluation and testing. The patient's anemia, which was likely related to her previous menorrhagia, is expected to improve now that the uterus has been removed and bleeding has stopped. A referral to a oil recovery operator, Dr. José Montoya, has been placed due to the patient's persistent bradycardia. The patient has not seen a oil recovery operator before this referral. ROS: Cardiovascular: Positive for sinus bradycardia. Musculoskeletal: Positive for soreness and pain in the abdominal area. Neurological: Positive for numbness in the abdominal area. Exam Narrative Physical exam: - Abdominal: Incision site looks good. Area around incision is numb, which is noted to be normal after surgery. General General Appearance: alert, in no apparent distress and healthy appearing Head Head exam: atraumatic Neck Neck exam: Present normal inspection and trachea midline Chest Chest inspection: Present normal inspection and symmetric chest wall rise External exam: Present normal external exam; Absent tenderness Neuro Neurological exam: Present oriented X3 Psych Psychiatric exam: Present normal affect and normal mood Office Procedures OB Clinic LOC & Office Proc's Nursing/Assessment Patient Status: Established Patient OB Clinic Nursing Assessment: Medication Reconciliation, Update PMH in EMR and Vital Signs OB Clinic Coordination of Care: Complex Care and Chronic Disease 1-5, Consent,records obtained, informed consent, Education Simp Pt/Fam, 1 Ins Authorization, Lab and Imaging orders, Results/Orders obtained and Staff clarify orders Established Patient Charge Established Patient Point Assignment: 120 Established Patient Point Charge: EP Level 4 (120-155) Assessment & Plan Diagnosis / Problem List (1) Bradycardia: Status: Acute (2) ABLA (acute blood loss anemia): Status: Acute (3) Menorrhagia: Status: Acute (4) Encounter for surgical aftercare following surgery on the genitourinary system: Status: Acute Plan Status post total abdominal hysterectomy: - Patient is approximately 3 weeks post total abdominal hysterectomy performed on 07/17/2025 for severe menorrhagia. - Uterus was significantly enlarged due to fibroids, necessitating extensive dissection during the procedure. - Current examination reveals good healing of the surgical site with ongoing soreness and pain, which is expected given the extent of the surgery. - Numbness around the incision site is present, which is a normal postoperative finding due to disruption of cutaneous nerves during the procedure. Plan: - Continue wearing abdominal binder until mid-August (1.5 months post-surgery). - Adhere to postoperative precautions: ? Avoid lifting more than 25-30 pounds ? Limit excessive walking while encouraging light ambulation - Maintain a balanced diet to support healing and address anemia. - Follow up with Dr. Roque in September for reassessment and likely laboratory testing. - Return to clinic in one month for vaginal examination and assessment of internal healing. Sinus bradycardia: - Patient's postoperative course was significant for sinus bradycardia. - Current heart rate is noted to be in the forties, which is concerning. - Patient has no prior history of cardiology evaluation. Plan: - Place referral to oil recovery operator Dr. José Montoya in [place] for evaluation of bradycardia. - Advise patient to follow up with primary care provider in the interim. Anemia: - Patient has a history of anemia, likely secondary to severe menorrhagia. - With the removal of the uterus and cessation of bleeding, it is anticipated that the patient's anemia will gradually improve. Plan: - Encourage balanced diet to support hematopoiesis. - Anticipate improvement in anemia with follow-up testing by Dr. Roque in September.
== END 2025-08-05 13:21 | disposition home or self-care (01) ==
LOC: HODSOBC 12:55
PROVIDERS: PCP Family Medicine; Referring Provider Family Medicine; Supervising Provider Obstetrics & Gynecology; Visit Provider Obstetrics & Gynecology
DX: D62 Acute posthemorrhagic anemia (principal); R00.1 Bradycardia, unspecified; N92.0 Excessive and frequent menstruation with regular cycle; Z90.710 Acquired absence of both cervix and uterus
CPT/HCPCS: 99214; G0463

== ENCOUNTER 2025-09-11 09:20 | Outpatient (AMB) | payer MEDICAID, SELFPAY ==
--- NOTE | 2025-09-11 09:34 | GYNCLNT_ITS ---
Vital Signs 09/11/25 09:35 Height 1.57 m Height Method Stated Weight 77.564 kg Weight Measurement Method Standing Scale BMI 31.4 BP 144/88 H Blood Pressure Source Automatic Cuff Blood Pressure Location Left Upper Arm Position Sitting Respiration 18 Pulse 65 Pulse Source Monitor Temp 97.2 F Temp Source Oral Pulse Oximetry (%) 98 Oxygen Delivery Method Room Air Allergies/Home Meds Allergies & Medications Allergies No Known Allergies Allergy (Verified 09/11/25 09:35) Medication Reconciliation ferrous sulfate 325 mg (65 mg iron) tablet (FeroSul) 325 mg PO TID 07/16/25 [History Confirmed 09/11/25] pantoprazole 40 mg tablet,delayed release 40 mg PO QDAY 30 days #30 tabs 07/21/25 [Rx Confirmed 09/11/25] Intake Visit Data Collection New Patient or Established: Established Patient (seen at 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 Menstrual regularity: regular Flow: normal Monthly: Yes Menopausal: No 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 Past Medical History: No Hx Neurological Disorders, No Hx Hypothyroidism, No Hx Hyperthyroidism, No Hx Breast Cancer, No Hx Cardiac Disorders, No Hx Hypertens ion, No Hx Cancer, Yes Hx Blood Disorders, Yes Hx Anemia, No Hx Gastrointestinal Disorders, No Hx Renal Disease, No Hx Deep Vein Thrombosis, No Hx Diabetes Mellitus Type 1, No Hx Diabetes Mellitus Type 2, Yes Hx Tubal Ligation, No Hx Hysterectomy and No Psychiatric Problems Questionnaires Covid-19 Vaccine Questionnaire Has patient been vacinated for Covid-19 Have you been vacinated for Covid-19: No PHQ-9 PHQ-2 Over the last 2 weeks, how often have you been bothered by any of the following problems? 1. Little interest or pleasure in doing things: not at all 2. Feeling down, depressed, or hopeless: not at all Total score: 0 PHQ-9 3. Trouble falling or staying asleep, or sleeping too much: Not at all 4. Feeling tired or having little energy: Not at all 5. Poor appetite or overeating: Not at all 6. Feeling bad about yourself - or that you are a failure or have let yourself or your family down: Not at all 7. Trouble concentrating on things, such as reading the newspaper or watching television: Not at all 8. Moving or speaking so slowly that other people could have noticed? - Or the opposite - being so fidgety or restless that you have been moving around a lot more than usual: not at all 9. Thoughts that you would be better off or of hurting yourself in some way: Not at all Total score: 0 If you checked off any problems, how difficult have these problems made it for you to do your work, take care of things at home, or get along with other people?: not difficult at all Source: Developed by Drs. Kentrell Okeefe, Irene Orr, Saeed Ge and colleagues, with an educational kiara from [email or web address]. Depression screen completed yes Social History Living Situation History Lives With: Family Housing: House Tobacco History Smoking Status: Never smoker Second Hand Smoke Exposure: No Alcohol History Alcohol Intake: Never Domestic Abuse History Do You Feel Safe at Home: Yes History of Present Illness HPI Narrative Lulu Zurita presents for a 2-month post-operative visit following total abdominal hysterectomy performed on July 17. She reports ongoing pain at the surgical site, describing it as still a lot of pain. She also experiences numbness in the area, which she understands is expected to resolve over 3-4 months as the small nerves regrow. The patient notes the area feels stretchy and has a pulling sensation, but these symptoms are not preventing her from maintaining her usual level of activity. She reports that she has been staying active and continuing to do activities despite the discomfort. The patient has been following up with cardiology as recommended, currently wearing a Halter monitor that is scheduled to be removed today. She is awaiting results from both the Halter monitor and an echocardiogram that was performed. She continues to follow up with Dr. Roque for anemia management, with her next appointment scheduled for September 22. She has a history of total abdominal hysterectomy on July 17, 2025. ROS: Positive for pain and numbness as stated above, limited to pertinent complaints. Exam General General Appearance: alert, in no apparent distress and healthy appearing Head Head exam: atraumatic Neck Neck exam: Present normal inspection and trachea midline Chest Chest inspection: Present normal inspection and symmetric chest wall rise External exam: Present normal external exam; Absent tenderness Neuro Neurological exam: Present oriented X3 Psych Psychiatric exam: Present normal affect and normal mood Office Procedures OBC Clinic LOC & Office Proc's Nursing/Assessment Patient Status: Established Patient OB Clinic Nursing Assessment: Medication Reconciliation, Update PMH in EMR and Vital Signs OB Clinic Coordination of Care: Consent,records obtained, informed consent, Education Simp Pt/Fam, Lab and Imaging orders, Results/Orders obtained and Staff clarify orders Special Needs: Heart tones Established Patient Charge Established Patient Point Assignment: 110 Established Patient Point Charge: EP Level 3 (80-115) Assessment & Plan Diagnosis / Problem List (1) Encounter for surgical aftercare following surgery on the genitourinary system: Status: Acute (2) Bradycardia: Status: Acute (3) ABLA (acute blood loss anemia): Status: Acute Plan Post-operative status total abdominal hysterectomy: - 2 months post total abdominal hysterectomy performed on July 17. - Ongoing pain at surgical site, expected at this timeframe. - Recovery progressing appropriately with anticipated timeline of 3 months or more for complete resolution of soreness. - Numbness around incision site expected due to small nerve transection during surgery. Plan: - No surgical restrictions; patient cleared for all normal activities including exercise, weight lifting, and sexual activity. - Encourage increased activity level to promote faster resolution of soreness. - Patient education provided regarding expected timeline for pain resolution (3+ months) and numbness resolution (3-4 months). - Return as needed for any concerns. - No routine surgical follow-up scheduled. Cardiac evaluation in progress: - Ongoing cardiac evaluation with Dr. Montoya. - Currently wearing Halter monitor which will be removed today with results review scheduled. - Echocardiogram completed with results pending today. Plan: - Continue follow-up with cardiology (Dr. Montoya). - Halter monitor removal and results review scheduled for today. - Echocardiogram results review scheduled for today. Anemia: - Known anemia being managed by Dr. Roque. - With removal of uterus and cessation of menstrual blood loss, anemia expected to improve more rapidly. Plan: - Continue follow-up with Dr. Roque for anemia management. - Next appointment scheduled for September 22. - Anticipate potential IV iron therapy to expedite improvement.
[2025-09-11 09:35] VITALS: BP 144/88; PULSE 65; RESP 18; TEMP 36.2; O2SAT 98; BMI 31.4
== END 2025-09-11 09:45 | disposition home or self-care (01) ==
LOC: HODSOBC 09:20
PROVIDERS: Supervising Provider Obstetrics & Gynecology; Visit Provider Obstetrics & Gynecology
DX: Z48.816 Encounter for surgical aftercare following surgery on the genitourinary system (principal); R00.1 Bradycardia, unspecified; D62 Acute posthemorrhagic anemia; Z90.710 Acquired absence of both cervix and uterus
CPT/HCPCS: 99213; G0463

== ENCOUNTER 2025-10-23 17:30 | Emergency (ER) | payer MEDICAID, SELFPAY ==
[2025-10-23 17:30] VITALS: BMI 26.5
--- NOTE | 2025-10-23 17:33 | EKG_ITS ---
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1980 Requested By: ED Temporary Provider Order Number: [id number] Reading MD: ED Temporary Provider Measurements Intervals Elizabeth Rate: 98 P: 43 NC: 150 QRS: -7 QRSD: 93 T: -3 QT: 311 QTc: 398 Interpretive Statements SINUS RHYTHM ANTERIOR MYOCARDIAL INFARCTION , OF INDETERMINATE AGE [40+ ms Q WAVE AND/OR ST/T ABNORMALITY IN V3/V4] INFERIOR MYOCARDIAL INFARCTION , OF INDETERMINATE AGE [40+ ms Q WAVE AND/OR ST/T ABNORMALITY IN II/aVF] MODERATE T-WAVE ABNORMALITY, CONSIDER LATERAL ISCHEMIA [-0.1+ mV T-WAVE IN I/aVL/V5/V6] Compared to ECG 07/19/2025 13:14:36 T-wave abnormality now present Possible ischemia now present Sinus bradycardia no longer present Myocardial infarct finding still present /store/S0/[id number].pdf
[2025-10-23 17:40] VITALS: BP 117/78; PULSE 98; RESP 18; TEMP 37.1; O2SAT 99
--- NOTE | 2025-10-23 17:46 | XR_ITS ---
EXAMINATION: PA lateral chest 2 views TECHNIQUE: Upright PA lateral chest 2 views Date and time: October 23, 2025, 1804 hours COMPARISON: April 15, 2025 INDICATIONS: Chest pain headaches shortness of breath numbness in the hands today FINDINGS: Normal heart size No aspiration pneumonia. Lungs are clear. Intact osseous structures IMPRESSION: No active disease
--- NOTE | 2025-10-23 17:46 | PD.EDRME ---
Rapid Medical Screening Exam [facility] Arrival date/time: 10/23/25 17:30 45-year-old female presents to the Emergency Department for complaint of a 3-day history of chest pain Chief Complaint: Chest Pain Vital signs: Vital Signs Temperature 98.7 F 10/23/25 17:40 Pulse Rate 98 10/23/25 17:40 Respiratory Rate 18 10/23/25 17:40 Blood Pressure 117/78 10/23/25 17:40 Pulse Oximetry (%) 99 10/23/25 17:40 Oxygen Delivery Method Room Air 10/23/25 17:40 Exam: Well-appearing does not appear ill or toxic Clinical Impression: Lab work imaging EKG obtained
[2025-10-23 18:25] LABS: Basophils # (Auto) 0.0 Thou/mm3 (0.0-0.2); Basophils % (Auto) 0 % (0-2.5); Eosinophils # (Auto) 0.0 Thou/mm3 (0.0-0.5); Eosinophils % (Auto) 0 % (0-10); Hematocrit 42.9 % (36.0-46.0); Hemoglobin 14.1 g/dL (12.0-16.0); Immature Granulocytes Auto 0.03 Thou/mm3 (0.00-0.00); Lymphocytes # (Auto) 0.8 Thou/mm3 (1.0-4.8); Lymphocytes % (Auto) 8 % (10-50); Mean Corpuscular HGB Conc 32.9 g/dl (31.0-37.0); Mean Corpuscular Hemoglobin 27.5 pg (25.0-35.0); Mean Corpuscular Volume 84 fL (80-100); Monocytes # (Auto) 0.4 Thou/mm3 (0.0-0.8); Monocytes % (Auto) 4 % (0-12); Neutrophils # (Auto) 8.8 Thou/mm3 (1.8-7.7); Neutrophils % (Auto) 88 % (37-80); Nucleated Red Blood Cell # 0.00 Thou/mm3 (0.00-0.00); Nucleated Red Blood Cell % 0 /100 WBC (0); Platelet Count 246 Thou/mm3 (140-440); RDW Standard Deviation 43.5 fL (36.4-46.3); Red Blood Count 5.13 Miln/mm3 (4.00-5.20); White Blood Count 10.0 Thou/mm3 (3.6-11.0)
[2025-10-23 18:43] LABS: Alanine Aminotransferase 14 U/L (10-49); Albumin, Serum 4.7 gm/dL (3.5-5.0); Albumin/Globulin Ratio 1.2 (1.2-2.2); Alkaline Phosphatase 124 U/L (46-116); Anion Gap 9 (7-16); Aspartate Amino Transferase 20 U/L (0-34); BUN/Creatinine Ratio 17 Ratio (12-20); Bilirubin,Total 0.6 mg/dL (0.3-1.2); Blood Urea Nitrogen 15 mg/dL (9-23); Calcium 9.4 mg/dL (8.3-10.6); Calcium (Corrected) 9.4 mg/dL (8.5-10.1); Carbon Dioxide 26.6 mMol/L (20.0-31.0); Chloride 105 mMol/L (98-107); Creatinine (Component) 0.9 mg/dL (0.6-1.3); Estimated Creatinine Clearance 68.8 mL/min (>60); Globulin 3.8 gm/dL (2.3-3.5); Glucose 115 mg/dL (74-106); Lipase 32 U/L (12-53); Osmolality,Calculated 283 (275-295); Potassium 4.2 mMol/L (3.4-5.1); Sodium 141 mMol/L (136-145); Total Protein 8.5 gm/dL (5.7-8.2); Troponin I < 0.002 ng/mL (0.0-0.045); eGFR > 60 See Note
[2025-10-23 19:18] LABS: HCG,Qualitative Serum Negative
--- NOTE | 2025-10-23 20:02 | EDNOTE_ITS ---
ED Chest Pain RME/HPI General Chief Complaint: Chest Pain Stated Complaint: chest pain Time Seen by Provider: 10/23/25 19:56 Arrival date/time: 10/23/25 17:30 RME / HPI RME / HPI narrative: 10/23/25 17:30 45-year-old female presents to the Emergency Department for complaint of a 3-day history of chest pain Dr. Ibanez?s Main ED Evaluation: 45yo female with a history tachyarrhythmia on extended-release metoprolol, compliant with her regimen presenting with intermittent/episodic palpitations. Patient reports associated chest tightness , nausea, occasional diaphoresis, lightheadedness, and near syncope. Symptoms worsen with exertion and have a slight pleuritic component. PMH includes tachyarrhythmia, anemia. PSH noncontributory. Cardiac Risk Factors: No DM, HTN, HLD, tobacco use. + Family history of CAD. PE Risk Factors: + Family hx PE and DVT. No tobacco, HRT, prolonged immobilization, or recent surgery. Related Data Home Medications ?Medication ?Instructions ?Recorded ?Confirmed ferrous sulfate 325 mg (65 mg 325 mg PO TID 07/16/25 1 iron) tablet (FeroSul) Previous Rx's ?Medication ?Instructions ?Recorded pantoprazole 40 mg tablet,delayed 40 mg PO QDAY 30 day s #30 tabs 07/21/25 release metoprolol tartrate 25 mg tablet 25 mg PO QDAY #14 tab s 10/23/25 Allergies Allergy/AdvReac Type Severity Reaction Status Date / Time No Known Allergies Allergy Verified 10/23/25 17:32 Review of Systems Review of Systems Systems Reviewed: All systems reviewed, normal except as documented Past Medical History Past Medical History NEUROLOGIC: Negative Neurological Disorders, Cerebrovascular Accident, Transient Ischemic Attacks (TIA), Dementia, Alzheimer's Disease, Parkinson's Disease, Brain Tumor, Meningitis, Seizures, Epilepsy, Multiple Sclerosis, Cerebral Palsy, Amyotrophic Lateral Sclerosis (ALS/Joan Gehrig's), Guillain-[place] Syndrome, Spina Bifida, Paralysis, Peripheral Neuropathy, Holloway's Palsy, Subdural Hematoma, Migraine, Head Trauma, Spinal Cord Injury or Traumatic Brain Injury CARDIAC: Negative Cardiac Disorders, Myocardial Infarction, Cardiac Arrhythmia, Atrial Fibrillation, Angina, Heart Murmur, Coronary Artery Disease, Atherosclerotic Heart Disease, Peripheral Vascular Disease, Hypercholesterolemia, Aneurysm, Congestive Heart Failure, Congenital Heart Disease, Valvular Heart Disease, Rheumatic Fever, Cardiomyopathy, Edema, Pericarditis, Cellulitis, Deep Vein Thrombosis, Hypertension, Hypotension or Varicose Veins RESPIRATORY: Negative Chronic Obstructive Pulmonary Disease (COPD), Asthma, Bronchitis, Emphysema, Pneumonia, Pulmonary Fibrosis, Cystic Fibrosis, Tuberculosis, Pulmonary Embolism, Pulmonary Edema or Sleep Apnea GASTROINTESTINAL: Negative Gastrointestinal Disorders, Hepatitis, Cirrhosis, Pancreatitis, Celiac Disease, Gall Bladder Disease, Esophageal Varices, Kwok's Esophagus, Colitis, Ulcerative Colitis, Diverticulitis, Diverticulosis, Ulcer, Colorectal Cancer, Crohn's Disease, Obstructive Bowel, Hiatal Hernia, Hemorrhoids, Gastroesophageal Reflux Disease or Obesity GENITOURINARY: Negative Genitourinary Disorders, Renal Disease, Kidney Stones, Polycystic Kidney Disease, Neurogenic Bladder, Inguinal Hernia or Dialysis REPRODUCTIVE: Negative Breast Cancer, Endometriosis, Genital Herpes, Gonorrhea, Pelvic Inflammatory Disease, Previous Pregnancies, Syphilis or Uterine Prolapse MUSCULOSKELETAL: Positive Arthritis; Negative Musculoskeletal Disorders, Muscular Dystrophy, Myasthenia Gravis, Marfan's Syndrome, Bone Cancer, Rheumatoid Arthritis, Osteoporosis, Degenerative Disk Disease, Gout, Scoliosis, Carpal Tunnel Syndrome, Fibromyalgia, Fractures, Degenerative Joint Disease, Osteomyelitis or Poliovirus ENT: Negative Cataracts, Glaucoma, Blind, Retinal Detachment, Macular Degeneration, Ear Infection, Deafness, Head Trauma or Eye Prosthesis ENDOCRINE: Negative Endocrine Disorders, Diabetes Mellitus Type 1, Diabetes Mellitus Type 2, Sunburst's Syndrome, [place]'s Disease, Hyperthyroidism, Hypothyroidism, Parathyroid Disease, Pituitary Disease, Systemic Lupus Erythematosus, Syndrome of Inappropriate Antidiuretic Hormone (SIADH), Adrenal Disease or Graves' Disease HEMATOLOGIC: Positive Blood Disorders and Anemia; Negative Leukemia, Hemophilia, Thalassemia, Sickle Cell Disease or Clotting Problems PSYCHO/SOCIAL: Positive Anxiety; Negative Psychiatric Problems, Schizophrenia, Recreational Drug Use, Bipolar Disorder, Depression, Behavior Problems, Self-Mutilation, Attention Deficit Disorder, Attention Deficit Hyperactivity Disorder, Depression, Post Traumatic Stress Disorder or Eating Disorder OTHER HISTORY: Positive Blood Transfusions and Chicken Pox; Negative Hospitalization, Autoimmune Disease, Down Syndrome, Autism, Developmental Delay, Shingles, Blood Transfusion Reaction, Anesthesia Reactions, Organ Transplant, Chemotherapy, Radiation Therapy, Hyperbaric Therapy, MRSA, VRSA, Vancomycin-Resistant Enterococci, Human Immunodeficiency Virus (HIV), Measles, Mumps, Rubella (Barb[place] Measles), Pertussis, Clostridium Difficile, Cancer, Breast Cancer, Cervical Cancer, Colorectal Cancer, Lung Cancer or Ovarian Cancer Family History FAMILY HISTORY: Positive Family Cancer (mother cancer); Negative Family Psychiatric Problems, Family Respiratory Disorders, Family Cardiac Disorders, Family Gastrointestinal Problems, Family Surgery or Family Anesthesia Reaction Surgical History SURGICAL: Positive Abdominal Surgery (csection x1) and Tubal Ligation; Negative Cardiac Surgery, Open Heart Surgery, Coronary Artery Bypass Graft, Valve Replacement, Vascular Surgery, Cardiac Catheterization, Pacemaker, Auto Implanted Cardiovert Defib, Carotid Endarterectomy, Endocrine Surgery, Thyroidectomy, Ear Surgery, Tympanostomy Tube, Eye Surgery, Nose Surgery, Oral Surgery, Tonsillectomy, Adenoidectomy, Cochlear Implant, Corneal Transplant, Throat Surgery, Tracheostomy, Gastric Bypass Surgery, Gastrostomy, Bowel Surgery, Nephrectomy, Joint Replacement, Amputation, Open Reduction Internal Fixation, Arthroscopy, Neurologic Surgery, Brain Shunt, Lumpectomy, Hysterectomy, Section or Organ Transplant Social History SMOKING STATUS: Never smoker SECOND HAND EXPOSURE: No ED Exam Narrative Physical exam: GENERAL APPEARANCE: alert and oriented x 4, well-developed, well-nourished, no acute distress VITALS: All vitals were reviewed and the pulse ox is 99% on room air, which is normal according to my interpretation. HEENT: Normocephalic, atraumatic; pupils equal, round, reactive to light; EOMI; mucous membranes pink, moist; oropharynx clear NECK: Supple LUNGS: CTABL; no wheezes, no rales, no rhonchi HEART: Tachycardic, regular rhythm; normal S1, S2; no murmurs ABDOMEN: non distended; normal BS; soft, no tenderness, no guarding, no rebound; no masses, no organomegaly, no hernia BACK: no CVA tenderness EXTREMITIES: atraumatic; no edema NEUROLOGIC: awake; alert and oriented x4; cranial nerves II-XII grossly intact; no focal sensory or motor deficits PSYCHIATRIC: appropriate mood and affect SKIN: warm, dry, normal color; no rashes Course Course Course Narrative: CXR is ordered for determining the etiology of chest pain. Quality Measures none Orders Category Date Time Status EKG (ED ONLY) *Do not use* NOW Care 10/23/25 17:33 Completed EKG (ED ONLY) *Do not use* NOW Care 10/23/25 22:16 Completed EKG (ED Only) Stat Exams 10/23/25 17:33 Draft EKG (ED Only) Stat Exams 10/23/25 22:16 Draft XR chest 2V Stat Exams 10/23/25 17:46 Completed CBC Stat Lab 10/23/25 18:15 Completed Comprehensive Metabolic Panel Stat Lab 10/23/25 18:15 Completed D-Dimer Stat Lab 10/23/25 18:15 Completed HCG,Qualitative Serum Stat Lab 10/23/25 18:15 Completed Lipase Stat Lab 10/23/25 18:15 Completed Troponin I Stat Lab 10/23/25 18:15 Completed Urinalysis, C/S if Indicated Stat Lab 10/23/25 23:17 Completed Acetaminophen Tab [Tylenol Tab] Med 10/23/25 23:10 Discontinued 1,000 mg PO X1 ONE Metoprolol Tartrate [Lopressor] Med 10/23/25 20:14 Discontinued 25 mg PO X1 ONE Vital Signs Vital signs: Vital Signs Temperature 98.7 F 10/23/25 17:40 Pulse Rate 98 10/23/25 17:40 Respiratory Rate 18 10/23/25 17:40 Blood Pressure 117/78 10/23/25 17:40 Pulse Oximetry (%) 99 10/23/25 17:40 Oxygen Delivery Method Room Air 10/23/25 17:40 Chest Pain MDM Narrative MDM Narrative:: Scribe Attestation: 10/23/25 Rebecca Easton am scribing for and in the presence of Dr. Ibanez. 45yo female with a history tachyarrhythmia on extended-release metoprolol, compliant with her regimen presenting with intermittent/episodic palpitations. Patient reports associated chest tightness , nausea, occasional diaphoresis, lightheadedness, and near syncope. Please see PE findings. Lab markers demonstrated normal CBC with a slight left shift. Chemistries unremarkable. Troponin undetected. Initial EKG demonstrated likely rate-related ischemic changes without signs of infarction or pericarditis. Patient administered a short acting beta ruth ann with reduction in heart rate and near complete resolution of previously noted EKG changes, which is essentially status from prior EKG. Patient with noted fever of 100.9. Patient is nontoxic. Will obtain UA and treat for evidence of infection, although likely early viral illness. Will place patient on metoprolol tartrate 25mg as a pocket dose for suspected HR greater than 110 and in addition force fluid hydration. Recommend Tylenol and Motrin for fever. Close follow-up with PMD in 3-5 days. Patient data External records reviewed:: [facility] previous records (Per chart review, patient was seen here on 04/15/25 for anemia.) Clinical information provided by:: patient Social determinants that could affect healthcare access:: none Patient has the following chronic illnesses:: none How is presenting disease/condition affected by chronic disease/condition?: no chronic disease Evaluation data The following diagnostics were reviewed and interpreted by me:: lab results, radiology exam(s) and EKG tracing(s) Lab and/or radiology exams considered but not ordered:: none Interpretation Summary: EKG done at 1742, sinus rhythm, rate of 98, inferior lateral wall ST segment depressions and T wave inversions possibly suggestive of ischemia, no ST segment elevations, no ectopy, normal intervals, left axis deviation, according to my interpretation. Repeat EKG done at 2247. sinus rhythm, rate of 84, previously noted inferior lateral wall changes although significantly diminished, no ST segment elevations, no ectopy, normal intervals, left axis deviation, according to my interpretation. [facility] Report Signed Patient: ANA MG Record#: [id number] Birthdate: 1980 Age/Sex: 45 / F Location: [facility] Attending Dr: Ordering Physician: Magalie QUEZADA)Sanchez NP Date of Service: 10/23/25 Procedure(s): XR chest 2V Accession Number(s): [id number] cc: Magalie QUEZADA)Sanchez NP; Jerel Cabrera MD~ EXAMINATION: PA lateral chest 2 views TECHNIQUE: Upright PA lateral chest 2 views Date and time: October 23, 2025, 1804 hours COMPARISON: April 15, 2025 INDICATIONS: Chest pain headaches shortness of breath numbness in the hands today FINDINGS: Normal heart size No aspiration pneumonia. Lungs are clear. Intact osseous structures IMPRESSION: No active disease Dictated By: Jerel Cabrera MD Signed By: <Electronically signed by Jerel Cabrera MD in OV> 10/23/25 1818 Medications / Prescriptions Medications or Prescriptions considered but not ordered:: none Medication administrations:: Medication Administration History Discontinued Medications Acetaminophen (Acetaminophen 325 Mg Tablet) 1,000 mg PO X1 ONE Stop: 10/23/25 23:11 Last Admin: 10/23/25 23:26 Dose: 1,000 mg Documented By: DAWNA Metoprolol Tartrate (Metoprolol Tartrate 25 Mg Tablet) 25 mg PO X1 ONE Stop: 10/23/25 20:15 Last Admin: 10/23/25 20:42 Dose: 25 mg Documented By: FRANCISCO see above Consultations Consultation(s) initiated? (list below): No Diagnosis Chest Pain Differential Diagnosis: atypical chest pain, st elevation myocardial infarction, costochondritis and other (NSTEMI, palpitations, arrhythmia, pneumonia) Most likely diagnosis given after review of the tests above:: see clinical impression below Admission Indicated Admission indicated?: not indicated Admission Request Was there a request for admission?: No Disposition Plan Disposition Plan: Discharge Discharge Attestation Discharge Attestation: The patient and all family members were given an opportunity to ask questions and understood the discharge instructions. Discharge instructions specifically effects, indications for sooner follow up or return to the emergency department, and the expected course of current diagnosis. Patient condition: Stable Discharge Plan Plan Patient Disposition: HOME (Self Care) Discharge Disposition comment: Stable Patient condition on transfer: Stable Prescriptions/Referrals Prescriptions/Med Rec: New metoprolol tartrate 25 mg tablet 25 mg PO QDAY Qty: 14 0RF No Action ferrous sulfate [FeroSul] 325 mg (65 mg iron) tablet 325 mg PO TID pantoprazole 40 mg tablet,delayed release (DR/EC) 40 mg PO QDAY 30 Days Qty: 30 1RF Referrals: Norah Gonzalez NP [Primary Care Provider] - In 1 week Problem List Clinical Impression: Nonspecific chest pain, Stable tachyarrhythmia, Acute febrile illness Impression comment: Nonspecific chest pain/stable tachyarrhythmia/acute febrile illness Patient/Caregiver Discharge Instructions Discharge Activity: activity as tolerated Other Activity Instructions:: Force fluids /maintain adequate rest Education Materials: Understanding Tachycardia, ED FUO Adult Additional Instructions: Tylenol as needed for fever. Take metoprolol 25 mg pocket dose tablet for sustained heart rate greater than 120. Close follow-up with software installation engineer. Return if worsening Print Language: Vietnamese Stand Alone Forms: [facility] Award Info., Patient Portal Info Letter
[2025-10-23 20:42] VITALS: BP 109/75; PULSE 102; RESP 17; TEMP 37.9; O2SAT 99
[2025-10-23] MEDS: METOPROLOL TARTRATE 25 MG TABLET PO (20:42)
[2025-10-23 21:29] LABS: D-Dimer 499 ng/mL (<600)
--- NOTE | 2025-10-23 22:16 | EKG_ITS ---
[facility] Test Date: 2025-10-23 Pat Name: ANA MG Department: Room: - Gender: Female [employer] Worker: : 1980 Requested By: Ron Jackson Order Number: [id number] Reading MD: Ron Jackson Measurements Intervals [place] Rate: 84 P: 44 LA: 166 QRS: -38 QRSD: 92 T: 15 QT: 343 QTc: 407 Interpretive Statements SINUS RHYTHM LEFT AXIS DEVIATION [QRS AXIS < -30] POSSIBLE ANTERIOR MYOCARDIAL INFARCTION , OF INDETERMINATE AGE [30 ms Q WAVE IN V3/V4, OR R < 0.2 mV IN V4] Compared to ECG 10/23/2025 17:42:39 Left-axis deviation now present T-wave abnormality no longer present Possible ischemia no longer present Myocardial infarct finding still present /store/S0/[id number].pdf
[2025-10-23 22:52] VITALS: BP 107/69; PULSE 84; RESP 18; TEMP 38.3; O2SAT 96
[2025-10-23 23:26] VITALS: TEMP 37.7
[2025-10-23 23:26] LABS: Collection Type, Urine Clean Catch
[2025-10-23] MEDS: ACETAMINOPHEN 325 MG TABLET 1000 MG PO (23:26)
[2025-10-23 23:31] VITALS: PULSE 112; RESP 22; TEMP 37.7; O2SAT 96
[2025-10-23 23:33] LABS: Bacteria,Urine Rare; Bilirubin,Urine Negative (Negative); Blood,Urine 1+ (Negative); Clarity,Urine Clear (Clear/Hazy); Color,Urine Yellow (Lt Yel-Yel); Culture Indicated,Urine Not Indicated; Glucose, Urine Negative (Negative); Ketones,Urine Negative (Negative); Leukocyte Esterase,Urine Negative (Negative); Nitrite,Urine Negative (Negative); PH,Urine 6.0 (5.0-7.0); Protein,Urine Trace (Neg - Trace); RBC,Urine 49 /hpf (0-3); Specific Gravity,Urine 1.029 (1.001-1.035); Squamous Epithelial Cell,Urine 9 /hpf (0-5); Urobilinogen,Urine Negative mg/dL (0.0-1.0); WBC,Urine 2 /hpf (0-5)
== END 2025-10-23 23:33 | disposition home or self-care (01) ==
PROVIDERS: Nurse Practitioner Primary Care; Emergency Provider Emergency Medicine; PCP Nurse Practitioner Family
DX: R07.89 Other chest pain (principal); R50.9 Fever, unspecified; R00.0 Tachycardia, unspecified; R51.9 Headache, unspecified; R06.02 Shortness of breath; R20.0 Anesthesia of skin; R94.31 Abnormal electrocardiogram [ECG] [EKG]
CPT/HCPCS: 36415; 71046; 80053; 81001; 83690; 84484; 84703; 85025; 85379; 93005; 99283; A9270